=== PATIENT | female | born 1965 | race Caucasian/White ===

== ENCOUNTER → 2016-08-10 12:59 | Outpatient (CLI) | payer MEDICARE ==
[2015-05-22 11:00] VITALS: BMI 26.5
[~2016-08-10 12:59] MED LIST: ACCUPRIL5 MG PO; ADVIL200 MG PO; ALEVE220 MG PO; ANCEF/KEFZOL INJ1 GM IV; ASPIRIN81 MG PO; ATIVAN1 MG PO; BENADRYL INJ50 MG/ML IV; CECLOR250 MG PO; CELEXA10 MG PO; DILAUDID 012 MG/30 M IV; DILAUDID2 MG PO; DULCOLAX10 MG/SUPP RC; DURAGESIC1 PATCH .1 TD; ENTRESTO 24 MG1 EACH PO; FLEXERIL10 MG PO; FLORAJEN3 CAPS460 MG PO; GLUCOPHAGE1000 MG PO; GLUCOPHAGE850 MG PO; HUMALOG 30100 UNITS/ SC; HUMULIN R100 U/ML SQ; IPRAT-ALBUT 0.5-3 ML INH; IPRAT-ALBUT 0.5-3 ML UPD; K-DUR20 MEQ PO; LANTUS INSULIN10 ML SC; LANTUS SOL100 UNIT/1 SQ; LASIX INJ40 MG/4 ML PO; LASIX20 MG PO; LIPITOR20 MG PO; LOPRESSOR25 MG PO; MACROBID100 MG PO; MAG-OX 400 MG400 MG PO; MAG-OXIDE400 MG PO; MAGNESIUM S1 G/50 ML IV; METFORMIN HCL500 M1 PO; MIRALAX17 GM PO; MULTI-DAY VITAM1 TAB PO; NEURONTIN 300300 MG PO; NICODERM C1 PATCH .3 TRANSDERM; NORCO 10/325 TA1 TA1 PO; ONDANSETRON4 MG/2 M3 IV; OXYCONTIN20 MG PO; PEPCID20 MG PO; PERCOCET 10/3251 TA1 PO; PHOS-NAK PAC1 PACKET PT; PLAVIX75 MG PO; POTASSIUM; PROPRANOLOL HCL20 MG PO; SALINE FLUSH10 ML IV; SENOKOT-S TABLE1 TAB PO; SINGULAIR10 MG PO; SODIUM PHO40 MMOL/25 IV; TEFLARO600 MG IV; TRIPLE ANTIBIO3.5 GM TP; VENTOLIN HFA18 GM INH; ZESTRIL40 MG PO
[2016-08-10 13:33] LABS: BASOPHILS 0.6 % (0.0-2.0); EOSINOPHILS 4.4 % (0-7); HEMATOCRIT 32.6 % (36.0-48.0); HEMOGLOBIN 10.2 g/dL (12-16); IMMATURE GRANULOCYTES 0.1 % (0-5); LYMPHOCYTES 23.8 % (15-50); MCH 28.2 pg (26.0-34.0); MCHC 31.3 g/dL (31.0-37.0); MCV 90.1 fL (80.0-100.0); MEAN PLATELET VOLUME 10.1 fL (7.4-10.4); NEUTROPHILS 64.1 % (40-80); PLATELET COUNT 240 10x3/uL (130-400); RBC 3.62 10x6/uL (4.00-5.40); RDW 14.2 % (11.5-14.5); WBC 8.6 10x3/uL (4.8-10.8)
[2016-08-10 14:25] LABS: ALBUMIN 2.5 g/dL (3.4-5.0); ANION GAP 14.4 mmol/L (8-16); BILIRUBIN - TOTAL 0.19 mg/dL (0.2-1.3); CALCIUM 8.4 mg/dL (8.5-10.1); CARBON DIOXIDE 23.4 mmol/L (21.0-32.0); LDL-HDL RATIO 8.1 ratio (1.5-3.5); POTASSIUM - SERUM 3.8 mmol/L (3.5-5.1); PROTEIN - SERUM 6.5 g/dL (6.4-8.2); THYROID STIMULATING HORMONE 2.3 uIU/mL (0.36-3.74)
== END | disposition home or self-care (01) ==
LOC: D.LAB 12:59
PROVIDERS: Family Medicine
DX: I10 Essential (primary) hypertension (principal); E78.5 Hyperlipidemia, unspecified; E11.9 Type 2 diabetes mellitus without complications; J44.9 Chronic obstructive pulmonary disease, unspecified; I73.9 Peripheral vascular disease, unspecified

== ENCOUNTER 2016-09-08 03:15 | Inpatient (IN) | payer MEDICARE ==
[~2016-09-08] VITALS: Ht 157.5 cm; Wt 68.5 kg
[2016-09-08] VITALS (18 sets, daily range): BP systolic 103–163; BP diastolic 38–96; Ht 157.5 cm; Wt 68.5 kg
--- NOTE | ~2016-09-08 | CN ---
PATIENT NAME:HARINDER AVENDANO MEDICAL RECORD: [id number] : 63 LOCATION:[id number] ADMIT DATE: 09/08/16 ACCOUNT: [id number] CONSULTING PHYSICIAN: ALESSANDRO CRESPO MD REFERRING PHYSICIAN: PAL RAMIRES MD DATE OF CONSULTATION: 09/08/2016 CONSULT REQUESTING PHYSICIAN: Pal Ramires MD. REASON FOR CONSULTATION: Shortness of breath and pulmonary edema. HISTORY OF PRESENT ILLNESS: Ms. Avendano is a 51-year-old female who has a history of chronic smoking as well as diabetes mellitus with a complication. The patient came into the ER with worsening shortness of breath since yesterday. In evaluation, she found that she has pulmonary edema and on ABG, the pH was 7.1, bicarb was in teens. The patient also was having orthopnea. Denies any fever and chills. She has a cough without any significant sputum production. She was given some Lasix, now she is feeling a little bit better. REVIEW OF SYSTEMS: Mainly in the history of present illness. PAST MEDICAL HISTORY: 1. Diabetes mellitus with complications. 2. Peripheral vascular disease. 3. Hypertension. 4. Neuropathy. 5. COPD. 6. Gastroesophageal reflux disease. 7. Depression. PAST SURGICAL HISTORY: 1. She had bilateral above-knee amputations. 2. . 3. Appendectomy. 4. Myringotomy. 5. Femoropopliteal bypass in the past. ALLERGIES: There are no known drug allergies. MEDICATIONS: She is on Levaquin IV, albuterol and ipratropium nebulizer, and Lasix. All other medication is reviewed. PERSONAL AND SOCIAL HISTORY: The patient still continues to smoke half pack per day. She is a nondrinker. FAMILY HISTORY: Noncontributory. PHYSICAL EXAMINATION: GENERAL: Now, the patient is lying comfortably. She is not in acute distress. VITAL SIGNS: The blood pressure is 158/91, pulse is 114, respirations 16, temperature 97.9 and SPO2 is 97% on 4 liter nasal cannula. HEENT: Conjunctivae pink, sclerae nonicteric. NECK: Supple. There is elevated JVD. CHEST: There are bilateral crackles. No wheezing. CONSULT REPORT [id number] HARINDER AVENDANO HEART: Rhythm regular, normal sound, no murmur. ABDOMEN: Soft, bowel sounds present. No hepatosplenomegaly. RECTAL: Deferred. EXTREMITIES: No cyanosis. No clubbing. There is bilateral above-knee amputations. CENTRAL NERVOUS SYSTEM: The patient is awake and alert. There are no obvious cranial nerve abnormalities. LABORATORY DATA: CBC: WBC is 14.5, hemoglobin 11.5, hematocrit is 37.2 and the platelet count is 180. Chemistry. ABG: The pH is 7.16, pCO2 is 48.2, pO2 is 97 and bicarb is 17.4. The lactic acid is 2.25. Chemistry: Sodium 136, potassium is 4, chloride is 102, BUN is 24 and creatinine 1.3. Liver enzymes are within normal range. The proBNP is 3902. IMPRESSION: 1. Acute hypoxic respiratory failure which is multifactorial. A. Pulmonary edema. B. Chronic obstructive pulmonary disease exacerbation. C. Bilateral pleural effusions, possible underlying atelectasis. 2. Metabolic acidosis, most likely secondary to sepsis, possible with associated diabetic ketoacidosis. 3. Urinary tract infection. 4. Gastroesophageal reflux disease. 5. Diabetes mellitus, uncontrolled. 6. Congestive heart failure, possible diastolic dysfunction. RECOMMENDATION: 1. Continue Lasix. Continue Levaquin. I will add cefepime, albuterol and ipratropium nebulizer. Add Brovana and budesonide nebulizer. 2. Followup on the cardiac echo. 3. Cardiology consult. 4. Followup labs and chest radiograph. Repeat ABGs. Dr. Ramires, once again, thank you for involving me in the care of Ms. Avendano. The critical care time is 45 minutes. TRANSINT:[id number] Voice Confirmation ID: [id number] DOCUMENT ID: [id number] ALESSANDRO CRESPO MD CC: PAL RAMIRES MD [id number] DICTATION DATE: 09/08/16 1333 MEDICAL CHIEF TECHNICIAN: 09/08/161946 ADM IN [id number] [place] [address]
[~2016-09-08 03:15] MED LIST changes: -ADVIL200 MG PO; -ENTRESTO 24 MG1 EACH PO; -FLORAJEN3 CAPS460 MG PO; -GLUCOPHAGE1000 MG PO; -IPRAT-ALBUT 0.5-3 ML INH; -MAG-OX 400 MG400 MG PO; -METFORMIN HCL500 M1 PO; -NICODERM C1 PATCH .3 TRANSDERM; -SINGULAIR10 MG PO; -VENTOLIN HFA18 GM INH
[2016-09-08 03:39] LABS: BASOPHILS 0.6 % (0.0-2.0); EOSINOPHILS 5.4 % (0-7); HEMATOCRIT 37.2 % (36.0-48.0); HEMOGLOBIN 11.5 g/dL (12-16); IMMATURE GRANULOCYTES 0.4 % (0-5); LYMPHOCYTES 27.9 % (15-50); MCH 28.8 pg (26.0-34.0); MCHC 30.9 g/dL (31.0-37.0); MCV 93.2 fL (80.0-100.0); MEAN PLATELET VOLUME 11.2 fL (7.4-10.4); MONOCYTES 6.3 % (2-11); NEUTROPHILS 59.4 % (40-80); RBC 3.99 10x6/uL (4.00-5.40); RDW 14.6 % (11.5-14.5); WBC 14.5 10x3/uL (4.8-10.8)
[2016-09-08 03:45] LABS: PLATELET COUNT 180 10x3/uL (130-400)
[2016-09-08 04:22] LABS: APPEARANCE CLOUDY (CLEAR); BACTERIA MANY /hpf (NONE SEEN); BILIRUBIN NEGATIVE (NEGATIVE); COLOR YELLOW (YELLOW); EPITHELIAL CELLS OCC /hpf (0-5); GLUCOSE 500 mg/dL (NEGATIVE); KETONE NEGATIVE (NEGATIVE); LEUKOCYTE ESTERASE 2+ (NEGATIVE); NITRITE NEGATIVE (NEGATIVE); PROTEIN 3+ mg/dL (NEGATIVE); RED CELLS - URINE 0-5 /hpf (0-5); SPECIFIC GRAVITY 1.015 (1.005-1.020); UROBILINOGEN NORMAL (NORMAL); WHITE CELLS - URINE >50 /hpf (0-5)
[2016-09-08 04:52] LABS: ALBUMIN 2.6 g/dL (3.4-5.0); ALKALINE PHOSPHATASE 93 U/L (46-116); ALT (SGPT) 8 U/L (10-68); BILIRUBIN - TOTAL 0.18 mg/dL (0.2-1.3); CALC OSMOLALITY 289 mosm/kg (275-300); CALCIUM 8.3 mg/dL (8.5-10.1); CARBON DIOXIDE 21.3 mmol/L (21.0-32.0); CHLORIDE - SERUM 102 mmol/L (98-107); CREATININE - SERUM 1.3 mg/dL (0.6-1.3); PROTEIN - SERUM 7.3 g/dL (6.4-8.2); SODIUM 136 mmol/L (136-145); UREA NITROGEN 24 mg/dL (7-18); eGFR NON AFRICAN AMERICAN 46 mL/min (90-120)
[2016-09-08 04:53] LABS: GLUCOSE 353 mg/dL (74-106)
[2016-09-08 04:57] LABS: CREATINE KINASE 43 UL (21-215); MAGNESIUM - SERUM 1.8 mg/dL (1.8-2.4); PRO BNP 3902 pg/mL (0-125); TROPONIN-I 0.029 ng/mL (0.000-0.060)
[2016-09-08 06:22] LABS: KETONE - SERUM NEGATIVE (NEGATIVE)
[2016-09-08] MEDS ORDERED: VENTOLIN HFA18 GM INH (07:34)
[2016-09-08] MEDS ORDERED: ADVIL200 MG PO (07:35)
[2016-09-08] MEDS ORDERED: METFORMIN HCL500 M1 PO (07:36)
--- NOTE | 2016-09-08 08:21 | NUR ---
REC'D CARE OF PT. A&O X3.
--- NOTE | 2016-09-08 09:02 | NUR ---
NO VISITORS. DR. DELUNA PAGED FOR DIET ORDER AND ADVIL ORDER. DR. DELUNA CALLED ME AND ORDERS REC'D.
--- NOTE | 2016-09-08 09:39 | NUR ---
ECHO BEING PERFORMED.
--- NOTE | 2016-09-08 09:40 | NUR ---
DR. DELUNA AT BEDSIDE. DISCUSSED HNT WITH HIM.
--- NOTE | 2016-09-08 09:45 | NUR ---
BREAKFAST TRAY SERVED
--- NOTE | 2016-09-08 11:25 | NUR ---
REQUESTED BEDPAN. OBLIGED HAD SEMIFORMED BROWN STOOL. CANDY CARE PERFORMED.
--- NOTE | 2016-09-08 12:15 | NUR ---
FAMILY AT BEDSIDE. UPDATED.
--- NOTE | 2016-09-08 13:03 | NUR ---
DR. CRESPO AT BEDSIDE.
--- NOTE | 2016-09-08 15:00 | NUR ---
FAMILY AT BEDSIDE. UPDATED.
--- NOTE | 2016-09-08 16:06 | NUR ---
DENIES NEEDS. VSS.
--- NOTE | 2016-09-08 18:09 | NUR ---
FAMILY AT BEDSIDE. UPDATED.
--- NOTE | 2016-09-08 19:00 | NUR ---
REPORT REC'D, PATINET CARE ASSUMED. ASSESSMENT COMPLETED PER FLOW SHEETS. PT ALERT AND ORIENTED X4, DENIES SOB AT THIS TIME. ST ON CM WITH HR AT 105. LUNG SOUNDS DIMINISHED TO LLB, UNLABORED ON 4L VIA NC. O2SAT 95%. BS ACTIVE X4 QUADR, NONTENDER. BARTON INTACT TO GRAVITY WITH CL/Y DRAINAGE TO BAG. AKA BILAT NOTED. HOB UP. SIDE RAILS UP X2. CALL LIGHT IN REACH. WILL CONT TO MONITOR.
--- NOTE | 2016-09-08 21:00 | NUR ---
NO VISITORS AT THIS TIME. SCHEDULED MEDS GIVEN PER ORDER. PT CARRIE WELL. VSS.
--- NOTE | 2016-09-08 23:00 | NUR ---
REASSESSMENT COMPLETED PER FLOW SHEETS. NO ACUTE SIGNS OF DISTRESS NOTED. VSS. BATH COMPLETED. SKIN CARE PROVIDED. LINEN AND GOWN CHANGES. ASSISTED WITH BEDPAN. MEDIUM SOFT STOOL RESULTED. CANDY CARE PROVIDED, REPOSITIONED FOR COMFORT. PILLOWS FOR SUPPORT. HOB UP. SIDE RAILS UP. CALL LIGHT IN REACH. CPOC.
[2016-09-09] VITALS (13 sets, daily range): BP systolic 120–140; BP diastolic 70–87
--- NOTE | 2016-09-09 01:00 | NUR ---
PT RESTING QUIETLY WITHOUT DISTRESS AT THIS TIME. NO NEEDS VOICES. VSS. CALL LIGHT IN REACH. CPOC.
--- NOTE | 2016-09-09 03:00 | NUR ---
REASSESSMENT COMPLETED PER FLOW SHEETS. NO ACUTE SIGNS OF CHANGES NOTED ON PT'S STATUS. VSS. NO NEEDS VOICES AT THIS TIME. CPOC
--- NOTE | 2016-09-09 04:00 | NUR ---
I&O COMPLETED WITHOUT DIFFICULTY.
[2016-09-09 04:15] LABS: BASOPHILS 0.3 % (0.0-2.0); EOSINOPHILS 3.6 % (0-7); HEMATOCRIT 32.2 % (36.0-48.0); HEMOGLOBIN 10.2 g/dL (12-16); IMMATURE GRANULOCYTES 0.2 % (0-5); LYMPHOCYTES 32.8 % (15-50); MCH 28.9 pg (26.0-34.0); MCHC 31.7 g/dL (31.0-37.0); MEAN PLATELET VOLUME 10.6 fL (7.4-10.4); MONOCYTES 7.3 % (2-11); NEUTROPHILS 55.8 % (40-80); RBC 3.53 10x6/uL (4.00-5.40); RDW 14.7 % (11.5-14.5)
[2016-09-09 04:22] LABS: MCV 91.2 fL (80.0-100.0); PLATELET COUNT 247 10x3/uL (130-400); WBC 8.9 10x3/uL (4.8-10.8)
[2016-09-09 04:24] LABS: HEMOGLOBIN A1C 9.1 % (4.8-6.0)
[2016-09-09 04:52] LABS: ALBUMIN 2.1 g/dL (3.4-5.0); ANION GAP 15.1 mmol/L (8-16); BILIRUBIN - TOTAL 0.2 mg/dL (0.2-1.3); CALCIUM 8.5 mg/dL (8.5-10.1); CARBON DIOXIDE 23.8 mmol/L (21.0-32.0); CHOL - HDL RATIO 8.4 ratio (2.3-4.1); LDL-HDL RATIO 6.2 ratio (1.5-3.5); MAGNESIUM - SERUM 1.6 mg/dL (1.8-2.4); POTASSIUM - SERUM 3.9 mmol/L (3.5-5.1); PROTEIN - SERUM 6.4 g/dL (6.4-8.2); THYROID STIMULATING HORMONE 3.28 uIU/mL (0.36-3.74)
[2016-09-09 04:58] LABS: CREATININE - SERUM 1.8 mg/dL (0.6-1.3)
--- NOTE | 2016-09-09 05:30 | NUR ---
BS TO 56. HYPOGLYCEMIA PROTOCOL INITIATED. WILL CONT TO MONITOR.
--- NOTE | 2016-09-09 07:58 | NUR ---
0700 PT AWAKE ALERT AND ORIENTED X4. ABLE TO OBEY COMMANDS. COMPLAINS OF PAIN IN BACK. SINUS TACHYCARDIA NOTED ON MONITOR. LUNG SOUNDS CLEAR, DIMINISHED IN LOWER LOBES BILAT. ACTIVE BOWEL SOUNDS X4. AKA NOTED BILAT. PT ABLE TO MOVE EXTREMITIES INDEPENDENTLY. VITAL SIGNS STABLE.
--- NOTE | 2016-09-09 09:35 | NUR ---
0900 PT HAD BM ON BEDPAN, ABLE TO TURN SELF. VITAL SIGNS STABLE. WILL CONTINUE TO MONITOR
--- NOTE | 2016-09-09 13:24 | NUR ---
Patient Name: HARINDER OBANDO Admission Status: ER Accout number: [id number] Admission Date: 09-08-2016 : 1965 Admission Diagnosis:SHORTNESS OF BREATH Attending: PATRICIA Current LOS: 1 Anticipated DC Date: 09-13-2016 Planned Disposition: Home Primary Insurance: MEDICARE A & B Discharge Planning Comments: CM MET WITH PATIENT REGARDING D/C NEEDS AND PLANS. PATIENT STATED SHE LIVES WITH CHE BEEBE AND HE WILL DRIVE HER HOME AT DISCHARGE. THERE IS A RAMP AT HER HOME WITH NO STAIRS INSIDE. PATIENT STATED SHE IS PARTIAL DEPENDENT - CHE HELPS HER WITH HER SHOWER, MEDICATION. PATIENT HAS A WHEELCHAIR, SHOWER BENCH, AND GLUCOMETER (CHECKS 4X DAILY). PATIENTS PCP IS DR. DELUNA AND PHARMACY IS [facility]. PATIENT DOES NOT WANT HOME HEALTH AT THIS TIME. CM WILL CONTINUE TO FOLLOW PATIENT WITH D/C NEEDS AND PLANS. PCP DR. [facility] - [phone] CHE BEEBE [phone] Process Worker: Perla Ambrocio Is the patient Alert and Oriented? Yes 0 * How many steps to enter\exit or inside your home? RAMP 0 * PCP DR. DELUNA 0 * Pharmacy [facility] 0 * Preadmission Environment Home with Family 0 * ADLs Partial Dependent 0 * Partial ADLs (Assistance needed) Ambulation Bathing Dressing Medication Management Toileting Transfers 0 * Equipment Glucometer Shower Chair Wheelchair 0 * List name and contact numbers for known caregivers / representatives who currently or will assist patient after discharge: CHE BEEBE [phone] * Community resources currently utilized None 0 * Additional services required to return to the preadmission environment? Yes 0 * Can the patient safely return to the preadmission environment? Yes 0 * Has this patient been hospitalized within the prior 30 days at any hospital? No 0 Grand Total: 0
--- NOTE | 2016-09-09 13:40 | NUR ---
1100 SPOKE WITH PHYSICIAN ABOUT TRANSFER. WILL SEE PT AND DECIDE IF SHE IS STABLE ENOUGH TO GO TO THE FLOOR.
--- NOTE | 2016-09-09 13:41 | NUR ---
1300 TRANSFER ORDERS IN COMPUTER. PT WILL GO TO MED 2. VITAL SIGNS STABLE
--- NOTE | 2016-09-09 15:00 | NUR ---
RECEIVED PT VIA BED FROM ICU WITH 4 PERSON ASSIST TRANSFER TO OUR BED. PT AOX4 RESP EVEN AND NONLABORED. V/S WNL. BED AT LOWEST SETTING CALL LIGHT WITHIN REACH PT DENIES NEEDS AT THIS TIME WILL CONTINUE TO MONITOR
--- NOTE | 2016-09-09 15:15 | NUR ---
1505 PT TRANSFERRED TO MED 2 VIA BED WITH O2 TANK AT BEDSIDE ON 3L. PT TOLERATED WELL. REPORT CALLED TO INGRID YOUNG.
--- NOTE | 2016-09-09 18:31 | NUR ---
RECEIVED REPORT FROM DAY NURSE, PT DENIES ANY NEEDS, CALL LIGHT IN REACH, BED IS LOW, SRX3, WILL CONTINUE TO MONITOR
[2016-09-10] VITALS: BP 126/66
--- NOTE | 2016-09-10 02:45 | NUR ---
ASSESSMENT COMPLETE SEE FLOWSHEET, CALL LIGHT IN REACH, WILL MONITOR
[2016-09-10 04:00] VITALS: BP 130/75
--- NOTE | 2016-09-10 05:11 | NUR ---
AGREE WITH PAINT CREW SUPERVISOR'S ASSESSMENT. CONTINUE PLAN OF CARE.
[2016-09-10 06:11] LABS: BASOPHILS 0.2 % (0.0-2.0); HEMATOCRIT 31.3 % (36.0-48.0); HEMOGLOBIN 9.6 g/dL (12-16); IMMATURE GRANULOCYTES 0.1 % (0-5); MCH 28.2 pg (26.0-34.0); MCHC 30.7 g/dL (31.0-37.0); MCV 91.8 fL (80.0-100.0); MEAN PLATELET VOLUME 10.3 fL (7.4-10.4); MONOCYTES 8.5 % (2-11); NEUTROPHILS 64.2 % (40-80); PLATELET COUNT 205 10x3/uL (130-400); RBC 3.41 10x6/uL (4.00-5.40); RDW 14.6 % (11.5-14.5); WBC 8.3 10x3/uL (4.8-10.8)
[2016-09-10 06:43] LABS: ANION GAP 15.5 mmol/L (8-16); BILIRUBIN - TOTAL 0.2 mg/dL (0.2-1.3); CALCIUM 8.5 mg/dL (8.5-10.1); CARBON DIOXIDE 22.3 mmol/L (21.0-32.0); CREATININE - SERUM 1.9 mg/dL (0.6-1.3); MAGNESIUM - SERUM 1.9 mg/dL (1.8-2.4); PHOSPHOROUS 6.1 mg/dL (2.5-4.9); POTASSIUM - SERUM 3.8 mmol/L (3.5-5.1); PROTEIN - SERUM 6.3 g/dL (6.4-8.2)
--- NOTE | 2016-09-10 07:44 | NUR ---
AM ROUNDING- RECEIVED REPORT FROM MONUMENTAL STONEMASON NURSE ABDI HARMAN. PT IS CURRENTLY LAYING IN BED ON BACK WITH EYES OPEN WATCHING TV. DENIES ANY NEED AT CURRENT TIME. ON MONITOR SHOWING ST, HR 105. FSBS ACHS. ON 02 AT 3L VIA NC. IV SEEN TO RIGHT HAND WITH NS RUNNING AT KVO (5CC). BARTON CATHETER SEEN WITH LIGHT YELLOW URINE. PT HAS BILATERAL RIGHT AKA. NO NEED AT CURRENT TIME. WILL CONTINUE TO MONITOR AND CONTINUE WITH PLAN OF CARE.
[2016-09-10 08:26] VITALS: BP 122/56
[2016-09-10 12:30] VITALS: BP 117/67
[2016-09-10 16:00] VITALS: BP 142/71
--- NOTE | 2016-09-10 17:45 | NUR ---
PT LAYING IN BED ON BACK WITH EYES OPEN RESTING. IS AT BEDSIDE. PT DENIES ANY NEED AT CURRENT TIME. WILL CONTINUE TO MONITOR.
--- NOTE | 2016-09-10 20:07 | NUR ---
PT AWAKE, ALERT, ORIENTED, DENIES ANY ACUTE NEEDS. CONTINUE TO MONITOR CLOSELY.
[2016-09-10 20:19] VITALS: BP 110/53
[2016-09-11] VITALS: BP 125/65
--- NOTE | 2016-09-11 01:57 | NUR ---
PT IS C/O NAUSEA. SHE HAS HAD TWO BM'S, SOLID, LIGHT BROWN, NO UNUSUAL EFFECTS. WILL OFFER SALTINE CRACKERS AND DIET LEMON ATQASUK. CONTINUE TO MONITOR CLOSELY.
--- NOTE | 2016-09-11 03:03 | NUR ---
PT HAS VOMITED X 2. I DID OVERRIDE ZOFRAN AND ADMINISTERED IV. PTS IV INFILTRATED DURING ADMINISTRATION. WILL RESITE. IV CATH TIP REMOVED WITH CATH TIP INTACT. PT TO GET BED BATH, LINEN, AND GOWN CHANGE. PT STATES SHE HAS CHRONIC NAUSEA AND VOMITING, AND TAKES PEPCID FOR IT. PT STATES SHE HAS NOT HAD A GI WORKUP. WILL DISCUSS WITH DAYSHIFT. CONTINUE TO MONITOR CLOSELY.
[2016-09-11 04:00] VITALS: BP 112/59
[2016-09-11 05:48] LABS: BASOPHILS 0.1 % (0.0-2.0); EOSINOPHILS 4.8 % (0-7); HEMATOCRIT 29.2 % (36.0-48.0); IMMATURE GRANULOCYTES 0.1 % (0-5); LYMPHOCYTES 17.3 % (15-50); MCH 28.1 pg (26.0-34.0); MCHC 30.8 g/dL (31.0-37.0); MCV 91.3 fL (80.0-100.0); MEAN PLATELET VOLUME 10.1 fL (7.4-10.4); MONOCYTES 7.5 % (2-11); NEUTROPHILS 70.2 % (40-80); PLATELET COUNT 203 10x3/uL (130-400); RDW 14.5 % (11.5-14.5); WBC 7.7 10x3/uL (4.8-10.8)
[2016-09-11 06:05] LABS: ANION GAP 13.8 mmol/L (8-16); CALCIUM 8.7 mg/dL (8.5-10.1); CREATININE - SERUM 1.6 mg/dL (0.6-1.3); POTASSIUM - SERUM 3.8 mmol/L (3.5-5.1)
--- NOTE | 2016-09-11 06:14 | NUR ---
ORALIA D/C'D @ 0600 R/T IT LEAKING. PT IS NOT WANTING ANOTHER ONE AT THIS TIME. ALSO INSULIN HELD THIS AM R/T SS - SERUM GLUCOSE @ 68. WILL GIVE SNACK. CONTINUE TO MONITOR CLOSELY.
--- NOTE | 2016-09-11 07:50 | NUR ---
AM ROUNDING- RECEIVED REPORT FROM PEST CONTROL SERVICE TECHNICIAN NURSE HECTOR GARCIA. PT IS CURRENTLY LAYING IN BED ON BACK WITH EYES CLOSED RESTING RECEIVING A BREATHING TX. IS AT BEDSIDE. ON MONITOR SHOWING ST, HR 114. FSBS ACHS. PER REPORT FROM HECTOR GARCIA PT HAD BARTON REMOVED LAST NIGHT ON SHIFT DUE TO BARTON LEAKING AND PT REFUSED ANOTHER BARTON PLACEMENT. IV SEEN TO RIGHT FOREARM WITH NS RUNNING AT KVO (5CC). ON ROOM AIR. NO NEED AT CURRENT TIME. WILL CONTINUE TO MONITOR AND CONTINUE WITH PLAN OF CARE.
[2016-09-11 08:27] VITALS: BP 173/67
--- NOTE | 2016-09-11 10:23 | NUR ---
DR. DELUNA IN PTS ROOM. DR. DELUNA STATES IT IS OKAY FOR PT TO GO OUTSIDE JUST LET TELEMETRY KNOW SHE WENT OUTSIDE (PT IS REQUESTING TO GO OUTSIDE). WILL CONTINUE TO MONITOR.
[2016-09-11 13:36] VITALS: BP 137/77
--- NOTE | 2016-09-11 17:59 | NUR ---
PT IS CURRENTLY OUTSIDE (VIA WHEELCHAIR) ACCOMPANIED BY . NO NEED AT CURRENT TIME. WILL CONTINUE TO MONITOR.
[2016-09-11 18:52] VITALS: BP 143/73
[2016-09-11 19:00] VITALS: BP 153/67
--- NOTE | 2016-09-11 23:33 | NUR ---
NURSE ROUNDS 21:00 - PT AWAKE, ALERT, ORIENTED, DENIES ANY ACUTE NEEDS. PT IS WEARING HER "COPPER" BACK BRACE FROM HOME AND STATES SHE DOES NOT NEED ANY PAIN PILLS WHILE SHE WEARS THIS. CONTINUE TO MONITOR CLOSELY. PT STATES SHE HAS BEEN VOIDING WITHOUT ANY DIFFICULTY SINCE REMOVAL OF HER BARTON CATH THIS AM.
[2016-09-12] VITALS: BP 138/68
[2016-09-12 04:00] VITALS: BP 142/77
[2016-09-12 05:19] LABS: BASOPHILS 0.2 % (0.0-2.0); EOSINOPHILS 5.3 % (0-7); HEMATOCRIT 27.6 % (36.0-48.0); HEMOGLOBIN 8.6 g/dL (12-16); IMMATURE GRANULOCYTES 0.2 % (0-5); LYMPHOCYTES 15.4 % (15-50); MCH 28.6 pg (26.0-34.0); MCHC 31.2 g/dL (31.0-37.0); MCV 91.7 fL (80.0-100.0); MEAN PLATELET VOLUME 10.2 fL (7.4-10.4); MONOCYTES 7.9 % (2-11); PLATELET COUNT 201 10x3/uL (130-400); RBC 3.01 10x6/uL (4.00-5.40); RDW 14.7 % (11.5-14.5); WBC 8.1 10x3/uL (4.8-10.8)
--- NOTE | 2016-09-12 05:45 | NUR ---
PT AWAKE, ALERT, ORIENTED, DENIES ANY NEEDS. PT STATED CONCERN ABOUT UPCOMING POSSIBLE CARDIAC CATH. I EXPLAINED THE PURPOSE, RISKS, BENEFITS, AND POST PROCEDURE. PT DENIES ANYMORE QUESTIONS. CONTINUE TO MONITOR CLOSELY.
[2016-09-12 05:54] LABS: ANION GAP 17.2 mmol/L (8-16); CALCIUM 8.4 mg/dL (8.5-10.1); CARBON DIOXIDE 20.6 mmol/L (21.0-32.0); CREATININE - SERUM 1.8 mg/dL (0.6-1.3); POTASSIUM - SERUM 3.8 mmol/L (3.5-5.1)
--- NOTE | 2016-09-12 06:40 | NUR ---
RECEIVED PT REPORT. WILL CONTINUE PLAN OF CARE. NO OTHER NEEDS AT THIS TIME. WILL CONTINUE TO [facility].
[2016-09-12 07:41] VITALS: BP 156/69
--- NOTE | 2016-09-12 09:32 | NUR ---
PT IS ALERT. ASSESSMENT DONE PER FLOWSHEET. NO OTHER NEEDS
[2016-09-12] MEDS ORDERED: LOPRESSOR25 MG PO (10:00)
[2016-09-12] MEDS ORDERED: ENTRESTO 24 MG1 EACH PO (10:01)
[2016-09-12] MEDS ORDERED: LASIX20 MG PO (10:02)
--- NOTE | 2016-09-12 10:55 | NUR ---
Patient Name: HARINDER OBANDO Encounter No: [id number] : 1965 Primary Insurance: MEDICARE A & B Anticipated DC Date: 09-12-2016 Planned Disposition: Home DCP follow-up note: CM MET WITH PT IN ROOM TO DISCUSS DISCHARGE NEEDS AND PLANNING. CM DISCUSSED AVAILABILITY OF HOME HEALTH, REHAB SERVICES AND MEDICAL EQUIPMENT. PT DENIES DISCHARGE NEEDS REPORTS HER SPOUSE TAKES CARE OF HER ALL OF THE TIME. SPOUSE TO TRANSPORT HOME AT DISCHARGE. IMPORTANT MESSAGE FROM MEDICARE PROVIDED AND EXPLAINED. Daniele Vega, CASE MANAGEMENT
--- NOTE | 2016-09-12 11:04 | NUR ---
DC TEACHING COMPLETE. NO FURTHUR QUESTIONS. PRESCRIPTIONS GIVEN TO PT. IV AND TELEMETRY DC'D
--- NOTE | 2016-09-16 12:24 | EC ---
PATIENT:HARINDER OBANDO DATE OF SERVICE: 09/08/16 SEX: F MEDICAL RECORD: [id number] DATE OF : [birth year] LOCATION:D. D.213 AGE OF PATIENT: 51 ADMISSION DATE: 09/08/16 REFERRING PHYSICIAN: INTERPRETING PHYSICIAN: RYAN GAMINO M.D. ECHOCARDIOGRAM REPORT ECHO CHARGES 4 ECHO COMPLETE CLINICAL DIAGNOSIS: SOB/ELEVATED PROTIME/BNP ECHOCARDIOGRAPHIC MEASUREMENTS (adult normal given) AC root (d.<3.7cm) 3.0 LV Septum d (<1.2 cm> 1.4 Valve Excursion 1.4 LV Septum (systole) 4.6 Left Atria (s.<4.0cm> 3.9 LVPW d(<1.2cm) 1.1 RV (d.<2.3cm) 3.2 LVPW (sytole) 1.8 LV diastole(<5.6CM) 5.6 MV E-F(>70mm/sec) LV systole 4.0 LVOT Diameter 1.7 MV exc.(>10mm) 1.3 Est.ejection fraction (50-75%) Pericardial Effusion Y DOPPLER: LVIT A 132 E LA RVSP LVOT 79 AOP1/2T Asc. Ao 111 RVOT 60 RA PA 109 AV Gradient Peak 4.94 AV Mean 2.78 AV Area 1.6 MV Gradient Peak 9.35 MV Mean 3.42 MV Area COMMENTS: Distribution Associate: Mckenna DELEON Rail Signal Designer:1 Dr. Reyes TAPE# PACS DATE OF SERVICE: 09/08/2016 INDICATIONS: Shortness of breath, congestive heart failure. REFERRING PHYSICIAN: Pal Ramires MD. DESCRIPTION: Left ventricle is mildly dilated. There is global hypokinesis present. No wall motion abnormalities are noted. There is moderate LV dysfunction seen. Its ejection fraction is in the order of 30%. The mitral valve is structurally normal. There is mild regurgitation seen. Left atrium is ECHOCARDIOGRAM REPORT [id number] HARINDER OBANDO normal in size. The aortic valve is trileaflet. There is no stenosis or regurgitation seen. Right ventricle is mildly dilated. Tricuspid valve is structurally normal. There is no regurgitation noted. Right atrium is normal in size. There is small pericardial effusion noted, which is not circumferential. There is no evidence of tamponade or chamber collapse. It is likely physiologic. IMPRESSION: 1. Moderate left ventricular dysfunction with ejection fraction of 30%. 2. Moderate mitral regurgitation. TRANSINT:[id number] Voice Confirmation ID: [id number] DOCUMENT ID: [id number] RYNA GAMINO M.D. at 1224 CC: [id number] DICTATION DATE: 09/09/16723 MANAGER UNIVERSITY: 09/09/16 1150 DIS IN 09/12/16 [id number] [place] [address]
== END 2016-09-12 11:10 | disposition home or self-care (01) | DRG 871 ==
LOC: D.ER 03:15 → D.ICU 06:53 → D.M2 09-09 15:08
PROVIDERS: Emergency Medicine; ADMIT Family Medicine
PROC: 0T9B70Z Drainage of Bladder with Drainage Device, Via Natural or Artificial Opening (ICD-10-PCS; principal; 2016-09-08)
DX: A41.9 Sepsis, unspecified organism (principal); J96.01 Acute respiratory failure with hypoxia; E13.10 Other specified diabetes mellitus with ketoacidosis without coma; I50.23 Acute on chronic systolic (congestive) heart failure; N17.0 Acute kidney failure with tubular necrosis; N39.0 Urinary tract infection, site not specified; J44.1 Chronic obstructive pulmonary disease with (acute) exacerbation; I42.9 Cardiomyopathy, unspecified; F32.9 Major depressive disorder, single episode, unspecified; I11.0 Hypertensive heart disease with heart failure; K21.9 Gastro-esophageal reflux disease without esophagitis; E78.5 Hyperlipidemia, unspecified; I25.10 Atherosclerotic heart disease of native coronary artery without angina pectoris; D64.9 Anemia, unspecified; F41.9 Anxiety disorder, unspecified; Z86.73 Personal history of transient ischemic attack (TIA), and cerebral infarction without residual deficits; Z89.611 Acquired absence of right leg above knee; Z89.512 Acquired absence of left leg below knee; Z72.0 Tobacco use

== ENCOUNTER 2016-09-19 08:44 | Inpatient (IN) | payer MEDICARE ==
[~2016-09-19] VITALS: Ht 157.5 cm; Wt 73.9 kg
[~2016-09-19 08:44] MED LIST changes: +ADVIL200 MG PO; +ENTRESTO 24 MG1 EACH PO; +METFORMIN HCL500 M1 PO; +VENTOLIN HFA18 GM INH
[2016-09-19 09:44] LABS: HEMOGLOBIN 9.8 g/dL (12-16); MCH 28.5 pg (26.0-34.0); MCHC 31.6 g/dL (31.0-37.0); MCV 90.1 fL (80.0-100.0); MEAN PLATELET VOLUME 8.9 fL (7.4-10.4); NEUTROPHILS 69.3 % (40-80); PLATELET COUNT 237 10x3/uL (130-400); RBC 3.44 10x6/uL (4.00-5.40); RDW 14.1 % (11.5-14.5); WBC 7.7 10x3/uL (4.8-10.8)
[2016-09-19 09:49] LABS: APTT 34.6 SECONDS (22.8-39.4); INR 1.08 (0.85-1.17); PROTIME 13.8 SECONDS (11.6-15.0)
[2016-09-19 09:50] LABS: D-DIMER-QUANTITATIVE 2.53 ug/mLFEU (0.20-0.54)
[2016-09-19 09:58] LABS: ALBUMIN 2.4 g/dL (3.4-5.0); ALKALINE PHOSPHATASE 79 U/L (46-116); ALT (SGPT) 16 U/L (10-68); CALC OSMOLALITY 290 mosm/kg (275-300); CALCIUM 8.9 mg/dL (8.5-10.1); CARBON DIOXIDE 19.1 mmol/L (21.0-32.0); CHLORIDE - SERUM 109 mmol/L (98-107); CREATININE - SERUM 1.1 mg/dL (0.6-1.3); GLUCOSE 149 mg/dL (74-106); PROTEIN - SERUM 7.1 g/dL (6.4-8.2); SODIUM 141 mmol/L (136-145); UREA NITROGEN 32 mg/dL (7-18); eGFR NON AFRICAN AMERICAN 55 mL/min (90-120)
[2016-09-19 10:10] LABS: CREATINE KINASE 21 UL (21-215); PRO BNP 6199 pg/mL (0-125); TROPONIN-I < 0.017 ng/mL (0.000-0.060)
[2016-09-19 11:42] LABS: UDS - AMPHET NEGATIVE QUAL (NEGATIVE); UDS - BARB NEGATIVE QUAL (NEGATIVE); UDS - BENZO NEGATIVE QUAL (NEGATIVE); UDS - COCAINE NEGATIVE QUAL (NEGATIVE); UDS - METH NEGATIVE QUAL (NEGATIVE); UDS - OPIATE NEGATIVE QUAL (NEGATIVE); UDS - PCP NEGATIVE QUAL (NEGATIVE); UDS - THC NEGATIVE QUAL (NEGATIVE)
[2016-09-19 11:44] LABS: APPEARANCE HAZY (CLEAR); BILIRUBIN NEGATIVE (NEGATIVE); COLOR YELLOW (YELLOW); GLUCOSE NEGATIVE (NEGATIVE); KETONE NEGATIVE (NEGATIVE); LEUKOCYTE ESTERASE 2+ (NEGATIVE); NITRITE NEGATIVE (NEGATIVE); PROTEIN 3+ mg/dL (NEGATIVE); UROBILINOGEN NORMAL (NORMAL); WHITE CELLS - URINE 25-50 /hpf (0-5)
[2016-09-19 11:45] LABS: RED CELLS - URINE NONE SEEN /hpf (0-5)
[2016-09-19 11:46] LABS: BACTERIA FEW /hpf (NONE SEEN); EPITHELIAL CELLS 0-5 /hpf (0-5)
--- NOTE | 2016-09-19 14:52 | NUR ---
PT ARRIVED TO UNIT VIA WHEELCHAIR, ACCOMPANIED BY RADHA, PT ORIENTED TO ROOM AND CALL LIGHT. WILL DO ASSESSMENT AND START PLAN OF CARE, NAD NOTED, WILL CONTINUE TO MONITOR.
--- NOTE | 2016-09-19 16:09 | NUR ---
LALIT Soriaa @ [phone] repors that she is available 8am through 3pm. After 3pm patient's sister Annelise @ [phone] is who will need to be called for decisions. Carlota reoprts she is not able to recieve phone calls at work and she has to be at work at 3pm.
[2016-09-19] MEDS ORDERED: GLUCOPHAGE1000 MG PO (16:13)
[2016-09-19 16:27] VITALS: BP 165/73; BMI 28.6
[2016-09-19 17:16] VITALS: BP 165/73
--- NOTE | 2016-09-19 18:58 | NUR ---
Patient Name: HARINDER OBANDO Admission Status: ER Accout number: [id number] Admission Date: 09-19-2016 : 1965 Admission Diagnosis: UTI/Sepsis/CHF Attending: PATRICIA Current LOS: 1 Anticipated DC Date: 09-22-2016 Planned Disposition: Home Primary Insurance: MEDICARE A & B Discharge Planning Comments: Cm met with patient to complete initial discharge planning assessment. Patient gave consent to complete assessment. Patient reports she lives at home with her significant other. She is mostly independent in her care at home. She requires assistance with transfers. She is wheelchair bound. Patient plans to return home at discharge and denied known needs at this time. CM will continue to follow and assist with dc plan/needs. Vision Therapist: Kaia Spear RN, [facility] [phone] Is the patient Alert and Oriented? Yes 0 * How many steps to enter\exit or inside your home? ramp 0 * PCP Dr. Ramires 0 * Pharmacy [facility] on [address] 0 * Preadmission Environment Home with Family 0 * ADLs Partial Dependent 0 * Partial ADLs (Assistance needed) Bathing Transfers 0 * Equipment Bedside Commode Shower Chair Wheelchair 0 * List name and contact numbers for known caregivers / representatives who currently or will assist patient after discharge: Edmundo Sellers - [facility] - [phone] 0 * Community resources currently utilized None 0 * Additional services required to return to the preadmission environment? No 0 * Can the patient safely return to the preadmission environment? Yes 0 * Has this patient been hospitalized within the prior 30 days at any hospital? yes
[2016-09-19 20:00] VITALS: BP 156/85
--- NOTE | 2016-09-19 21:45 | NUR ---
ADMIN SCHED MEDS AND IBUPROFEN FOR C/O BACK PAIN. ADMIN LANTUS 40 UNITS PER ORDER. BS CHECKED AT 197. SHE STATED IT WAS OK TO GIVE THE 40 UNITS OF LANTUS FOR BS AT 197. IV IN R HAND INTACT SL. ORIENTED TO CALL LIGHT FOR ANY NEEDS.
--- NOTE | 2016-09-20 00:30 | NUR ---
GAVE SNACK OF VANILLA WAFERS AND MILK. INQUIRED ABOUT A NICOTINE PATCH, BUT ONE WAS NOT ORDERED. STATED "OK" AND WILL CHECK WITH MD TOMORROW.
[2016-09-20 00:36] VITALS: BP 134/69
--- NOTE | 2016-09-20 04:30 | NUR ---
REQUESTED BEDPAN TO VOID. NO OTHER NEEDS OR DISCOMFORTS VOICED.
[2016-09-20 04:59] VITALS: BP 156/75
[2016-09-20 05:35] LABS: BASOPHILS 0.3 % (0.0-2.0); EOSINOPHILS 4.5 % (0-7); HEMATOCRIT 29.9 % (36.0-48.0); HEMOGLOBIN 9.2 g/dL (12-16); IMMATURE GRANULOCYTES 0.3 % (0-5); MCH 28.1 pg (26.0-34.0); MCHC 30.8 g/dL (31.0-37.0); MCV 91.4 fL (80.0-100.0); NEUTROPHILS 56.9 % (40-80); PLATELET COUNT 222 10x3/uL (130-400); RBC 3.27 10x6/uL (4.00-5.40); RDW 14.8 % (11.5-14.5); WBC 7.1 10x3/uL (4.8-10.8)
[2016-09-20 06:03] LABS: ALBUMIN 2.3 g/dL (3.4-5.0); ANION GAP 13.4 mmol/L (8-16); BILIRUBIN - TOTAL 0.1 mg/dL (0.2-1.3); CREATININE - SERUM 1.1 mg/dL (0.6-1.3); MAGNESIUM - SERUM 1.8 mg/dL (1.8-2.4); PHOSPHOROUS 4.9 mg/dL (2.5-4.9); POTASSIUM - SERUM 5.4 mmol/L (3.5-5.1); PROTEIN - SERUM 6.9 g/dL (6.4-8.2)
--- NOTE | 2016-09-20 07:35 | NUR ---
PHARMACY CALLED RE: DR SHEEHAN'S ORDER FOR VASOTEC. PHARMACY STATE VASOTEC AND ENTRESTO CANNOT BE GIVEN TOGETHER. INFORMED DR DELUNA PRESENT ON FLOOR.
[2016-09-20 07:49] VITALS: BP 145/61
--- NOTE | 2016-09-20 08:45 | NUR ---
Verbalized name and , no distress assessed. No complaints. Telemetry in place. Call light within reach.
[2016-09-20 11:19] VITALS: BP 104/75
[2016-09-20 12:59] VITALS: Ht 157.5 cm; Wt 73.9 kg
--- NOTE | 2016-09-20 14:20 | NUR ---
Sitting up in bed, no compliants voiced. Call light within reach.
[2016-09-20 15:25] VITALS: BP 156/80
[2016-09-20 19:00] VITALS: BP 159/66
--- NOTE | 2016-09-20 19:46 | NUR ---
STRIPING MACHINE OPERATOR AT BED SIDE TO ASSIST WITH BED WARD.
--- NOTE | 2016-09-20 21:07 | NUR ---
HS MEDS GIVEN, DENIES NEEDS, BED LOW, CL IN REACH.
[2016-09-21 00:34] VITALS: BP 125/64
--- NOTE | 2016-09-21 02:17 | NUR ---
RESTING WITH EYES CLOSED, RESPERATIONS EVEN, NO S/S DISTRESS NOTED.
[2016-09-21 04:00] VITALS: BP 166/86
[2016-09-21 06:09] LABS: MAGNESIUM - SERUM 1.5 mg/dL (1.8-2.4); PHOSPHOROUS 3.8 mg/dL (2.5-4.9)
[2016-09-21 07:49] VITALS: BP 134/63
--- NOTE | 2016-09-21 10:20 | NUR ---
PATIENT RESTING WITH EYES CLOSED UPON MY ENTRY TO HER ROOM. SHE AWOKE EASILY AND DENIES NEEDS. MEDICATIONS GIVEN. LOVENOX EXPLAINED AND GIVEN IN THE LUQ. SHE IS ABLE TO SIT UP IN HER BED UNASSISTED. ENCOURAGED HER TO GET INTO THE SHOWER TODAY, EXPLAINED THE EQUIPMENT THAT COULD BE PROVIDED. SHE DECLINED, STATED THAT HER IS COMING THIS AFTERNOON AND SHE WILL GET INTO HER WC FOR A BIRD BATH.
--- NOTE | 2016-09-21 10:54 | NUR ---
PATIENT RESTING ON HER RIGHT SIDE IN HER BED. WATCHING TV. DENIES NEEDS.
[2016-09-21 11:29] VITALS: BP 127/56
[2016-09-21 15:15] VITALS: BP 149/70
[2016-09-21 19:00] VITALS: BP 142/63
--- NOTE | 2016-09-21 19:28 | NUR ---
IBUPROPHEN 200 MG GIVEN FOR C/O PAIN.
[2016-09-22] VITALS: BP 143/69
--- NOTE | 2016-09-22 03:32 | NUR ---
RESTING WITH EYES CLOSED, RESPERATIONS EVEN, NO S/S DISTRESS NOTED.
[2016-09-22 04:00] VITALS: BP 143/65
--- NOTE | 2016-09-22 05:28 | NUR ---
CALL LIGHT IN REACH. WILL CONTINUE WITH PLAN OF CARE.
[2016-09-22 05:35] LABS: BASOPHILS 0.4 % (0.0-2.0); EOSINOPHILS 6.1 % (0-7); HEMATOCRIT 29.6 % (36.0-48.0); HEMOGLOBIN 9.2 g/dL (12-16); IMMATURE GRANULOCYTES 0.1 % (0-5); LYMPHOCYTES 29.8 % (15-50); MCH 28.6 pg (26.0-34.0); MCHC 31.1 g/dL (31.0-37.0); MCV 91.9 fL (80.0-100.0); MEAN PLATELET VOLUME 9.9 fL (7.4-10.4); NEUTROPHILS 56.6 % (40-80); PLATELET COUNT 258 10x3/uL (130-400); RBC 3.22 10x6/uL (4.00-5.40); RDW 14.8 % (11.5-14.5); WBC 6.9 10x3/uL (4.8-10.8)
[2016-09-22 05:55] LABS: ANION GAP 14.1 mmol/L (8-16); CALCIUM 8.4 mg/dL (8.5-10.1); CARBON DIOXIDE 25.5 mmol/L (21.0-32.0); CREATININE - SERUM 1.1 mg/dL (0.6-1.3); MAGNESIUM - SERUM 1.3 mg/dL (1.8-2.4); POTASSIUM - SERUM 5.6 mmol/L (3.5-5.1)
--- NOTE | 2016-09-22 06:48 | NUR ---
RECEIVED REPORT FROM CAREER PROFESSIONAL NURSE, CONSTANTINO PATTON. PT IN BED, DENIES ANY NEEDS AT THIS TIME, PT ASSESSED AT THIS TIME. FIANCE AT BEDSIDE, CALL LIGHT IN REACH, NAD NOTED, WILL CONTINUE TO MONITOR.
[2016-09-22 08:15] VITALS: BP 158/69
--- NOTE | 2016-09-22 09:00 | NUR ---
PT TRANSFERED TO CT, VIA BED, NAD NOTED,
--- NOTE | 2016-09-22 09:42 | NUR ---
PT TRANSFERED BACK TO ROOM, VIA BED, NAD NOTED.
--- NOTE | 2016-09-22 10:11 | NUR ---
ADMINISTERED MORNING MEDICATIONS, PT IN BED, DENIES ANY NEEDS AT THIS TIME. CALL LIGHT IN REACH, FAMILY AT BEDSIDE, NAD NOTED WILL CONTINUE TO MONITOR.
--- NOTE | 2016-09-22 10:56 | NUR ---
Nutrition follow-up: Diet: Low sodium NPO at this time for procedure PO intake has been ~75% of meals labs reviewed Wt; 163# RDN following.
[2016-09-22 12:10] VITALS: BP 142/69
[2016-09-22 16:00] VITALS: BP 127/55
--- NOTE | 2016-09-22 17:35 | NUR ---
ADMINISTERED ADVIL 200MG FOR PAIN LEVEL OF 9/10, PT DENIES ANY OTHER NEEDS AT THIS TIME. CALL LIGHT IN REACH, NAD NOTED, WILL CONTINUE TO MONITOR.
[2016-09-22 20:13] VITALS: BP 144/70
--- NOTE | 2016-09-22 22:19 | NUR ---
HS MEDS GIVEN. BS 113, LANTUS HELD AT PT REQUEST. NO OTHER NEEDS VOICED AT THIS TIME.
--- NOTE | 2016-09-23 01:08 | NUR ---
CALL LIGHT IN REACH, WILL CONTINUE WITH PLAN OF CARE.
[2016-09-23 02:00] VITALS: BP 125/62
--- NOTE | 2016-09-23 02:38 | NUR ---
ASSIST PT WITH US OF BED WARD.
[2016-09-23 05:37] LABS: BASOPHILS 0.3 % (0.0-2.0); HEMOGLOBIN 9.1 g/dL (12-16); IMMATURE GRANULOCYTES 0.2 % (0-5); LYMPHOCYTES 35.2 % (15-50); MCH 28.7 pg (26.0-34.0); MCHC 31.4 g/dL (31.0-37.0); MCV 91.5 fL (80.0-100.0); MEAN PLATELET VOLUME 9.8 fL (7.4-10.4); MONOCYTES 7.9 % (2-11); NEUTROPHILS 50.4 % (40-80); PLATELET COUNT 269 10x3/uL (130-400); RBC 3.17 10x6/uL (4.00-5.40); RDW 14.8 % (11.5-14.5)
[2016-09-23 05:56] LABS: ANION GAP 14.3 mmol/L (8-16); CALCIUM 8.4 mg/dL (8.5-10.1); CARBON DIOXIDE 25.9 mmol/L (21.0-32.0); CREATININE - SERUM 1.1 mg/dL (0.6-1.3); MAGNESIUM - SERUM 1.4 mg/dL (1.8-2.4); POTASSIUM - SERUM 5.2 mmol/L (3.5-5.1)
[2016-09-23 05:57] LABS: PHOSPHOROUS 4.2 mg/dL (2.5-4.9)
--- NOTE | 2016-09-23 07:00 | NUR ---
PT WAS RECEIVED IN STABLE CONDITION AND AWAKE AT THE BEGINNING OF THIS SHIFT. ALERT AND ORIENTED X 3. VITAL SIGNS; TEMP. 97.8, PULSE 97, RESP 18, B/P 140/52, 02SAT. 99%. NO VOICED COMPLAINTS. RT. SERGIO SL. WILL BE MONITORING HER AND ASSISTING PRN WITH ADL'S.
[2016-09-23 08:14] VITALS: BP 140/52
[2016-09-23 13:14] VITALS: BP 152/78
[2016-09-23 16:52] VITALS: BP 140/64
--- NOTE | 2016-09-23 18:00 | NUR ---
PT HAS BEEN GIVEN PRN MAG OX PER ELECTROLYTE PROTOCOL TWICE THIS SHIFT. SHE REMAINS ALERT AND ORIENTED X 3. SHE GETS UP IN WHEELCHAIR AND GOES ABOUT WITH HER . PT IS ON A NO ADDED SALT- LOW SODIUM DIET. SHE REFUSED HER NICOTINE PATCH THIS AM. NO SIGNS OF DISCOMFORT OR DISTRESS.
[2016-09-23 19:00] VITALS: BP 131/59
--- NOTE | 2016-09-23 19:18 | NUR ---
PT RECEIVED LYING IN BED WATCHING TV AT THIS TIME. AAOX3. ASSESSMENT COMPLETED PER FLOWSHEET AT THIS TIME. S/L NOTED TO RIGHT HAND. DRESSING CDI. PT DENIES NEEDS AT THIS TIME. BED LOW. PHONE AND CALL LIGHT IN REACH. SRX2.
--- NOTE | 2016-09-23 21:39 | NUR ---
PM MEDS GIVEN AT THIS TIME. PT TOLERATED WELL. DENIES NEEDS. BED LOW. PHONE AND CALL LIGHT IN REACH. SRX2.
--- NOTE | 2016-09-23 23:38 | NUR ---
PT RESTING QUIETLY AT THIS TIME WITH EYES CLOSED. RESPIRATIONS EVEN, NON-LABORED. NO ACUTE DISTRESS NOTED AT THIS TIME. BED LOW. PHONE AND CALL LIGHT IN REACH. SRX2.
[2016-09-24] VITALS: BP 137/85
--- NOTE | 2016-09-24 01:55 | NUR ---
PT RESTING QUIETLY AT THIS TIME WITH EYES CLOSED. AROUSED EASILY. PT REQUESTS DIET COLA AT THIS TIME. DENIES OTHER NEEDS. BED LOW. PHONE AND CALL LIGHT IN REACH. SRX2.
--- NOTE | 2016-09-24 04:18 | NUR ---
PT REQUESTS MEDICATION FOR PAIN PT RATES 10 AT THIS TIME. ADMINISTERED IBUPROFEN PO PER ORDERS AT THIS TIME. PT DENIES OTHER NEEDS. BED LOW. PHONE AND CALL LIGHT IN REACH. SRX2.
[2016-09-24 04:26] VITALS: BP 131/68
--- NOTE | 2016-09-24 05:34 | NUR ---
PT RESTING QUIETLY WATCHING TV AT THIS TIME. ADMINISTERED LASIX IVP PER ORDERS. PT DENIES NEEDS. BED LOW. PHONE AND CALL LIGHT IN REACH. SRX2.
[2016-09-24] MEDS ORDERED: NICODERM C1 PATCH .3 TRANSDERM (06:51)
[2016-09-24] MEDS ORDERED: IPRAT-ALBUT 0.5-3 ML INH (06:54)
[2016-09-24] MEDS ORDERED: SINGULAIR10 MG PO (06:56)
[2016-09-24] MEDS ORDERED: FLORAJEN3 CAPS460 MG PO (06:57)
--- NOTE | 2016-09-24 07:00 | NUR ---
RECEIVED REPORT. ASSUMED CARE OF PATIENT. ALERT/ORIENTED. DENIES NEEDS AT THIS TIME. PATIENT QUESTIONING IF SHE WILL HAVE A PROCEDURE OR SHE WILL GO HOME TODAY. EXPLAINED TO PATIENT THAT IN REPORT THIS EXPEDITER CLERK WAS INFORMED PATIENT WILL BE GOING HOME TODAY. RESP EVEN AND UNLABORED. NO DISTRESS.
[2016-09-24] MEDS ORDERED: MAG-OX 400 MG400 MG PO (07:01)
[2016-09-24 07:59] VITALS: BP 129/66
[2016-09-24 12:40] VITALS: BP 105/53
--- NOTE | 2016-09-24 12:45 | NUR ---
1220 22 GAUGE IV TO RIGHT HAND D/C'D AT PATIENT IS BEING DISCHARGED. NO BLEEDING FROM SITE. 2X2 GAUZE APPLIED AND SECURED WITH TAPE. CATHETER TIP INTACT. 1225 DISCHARGE INSTRUCTIONS PROVIDED TO PATIENT AND HER MALE VISITOR AT BEDSIDE. STRESSED THE IMPORTANCE OF TAKING HER MEDICATION DIRECTED OR IT WOULD RESULT IN ANOTHER UNPLANNED HOSPITAL STAY DUE TO BEING NON COMPLIANT. PATIENT STATES THAT SHE HOPE SHE HAS THE MONEY TO PAY FOR THE MEDICATIONS WHEN SHE GETS TO THE PHARMACY. INSTRUCTED PATIENT THAT SHE WILL NEED TO LET HER PHYSICIAN KNOW IF SHE IS NOT TAKING THE MEDICATION DUE TO COST AND THE OFFICE SHOULD BE ABLE TO PROVIDE HER WITH ASSISTANCE IN RECEVING SOME OF HER MEDICATIONS. PATIENT VERBALIZED UNDERSTANDING OF ALL INSTRUCTIONS PROVIDED. 1240 PATIENT LEFT UNIT VIA HER OWN PERSONAL WHEELCHAIR WITH MALE VISITOR. PATIENT LEFT UNIT WITH ALL PERSONAL BELONGINGS. PATIENT IN NO DISTRESS UPON LEAVING UNIT.
== END 2016-09-24 12:40 | disposition home or self-care (01) | DRG 189 ==
LOC: D.ER 08:44 → D.M2 14:03
PROVIDERS: Emergency Medicine; Internal Medicine Pulmonary Disease; ADMIT Family Medicine
DX: J96.01 Acute respiratory failure with hypoxia (principal); I50.23 Acute on chronic systolic (congestive) heart failure; N39.0 Urinary tract infection, site not specified; J44.1 Chronic obstructive pulmonary disease with (acute) exacerbation; D64.9 Anemia, unspecified; E78.5 Hyperlipidemia, unspecified; E11.40 Type 2 diabetes mellitus with diabetic neuropathy, unspecified; I73.9 Peripheral vascular disease, unspecified; Z79.4 Long term (current) use of insulin; K21.9 Gastro-esophageal reflux disease without esophagitis; F41.9 Anxiety disorder, unspecified; F32.9 Major depressive disorder, single episode, unspecified; I34.0 Nonrheumatic mitral (valve) insufficiency; J30.9 Allergic rhinitis, unspecified; Z89.612 Acquired absence of left leg above knee; Z89.611 Acquired absence of right leg above knee; I11.0 Hypertensive heart disease with heart failure; E83.42 Hypomagnesemia; Z86.73 Personal history of transient ischemic attack (TIA), and cerebral infarction without residual deficits; F17.200 Nicotine dependence, unspecified, uncomplicated

== ENCOUNTER 2017-01-13 19:18 | Inpatient (IN) | payer MEDICARE ==
[~2017-01-13] VITALS: Ht 157.5 cm; Wt 65.3 kg
[~2017-01-13 19:18] MED LIST changes: +FLORAJEN3 CAPS460 MG PO; +GLUCOPHAGE1000 MG PO; +IPRAT-ALBUT 0.5-3 ML INH; +MAG-OX 400 MG400 MG PO; +NICODERM C1 PATCH .3 TRANSDERM; +SINGULAIR10 MG PO
[2017-01-13 20:00] LABS: BASOPHILS 0.3 % (0-2); EOSINOPHILS 4.3 % (0-7); HEMATOCRIT 31.6 % (36.0-48.0); HEMOGLOBIN 9.9 g/dL (12-16); IMMATURE GRANULOCYTES 0.1 % (0-5); LYMPHOCYTES 20.5 % (15-50); MCH 28.4 pg (26.0-34.0); MCHC 31.3 g/dL (31.0-37.0); MCV 90.8 fL (80.0-100.0); MEAN PLATELET VOLUME 10.3 fL (7.4-10.4); MONOCYTES 5.7 % (2-11); NEUTROPHILS 69.1 % (40-80); PLATELET COUNT 222 10x3/uL (130-400); RBC 3.48 10x6/uL (4.00-5.40); RDW 15.3 % (11.5-14.5); WBC 7.8 10x3/uL (4.8-10.8)
[2017-01-13 20:11] LABS: ALBUMIN 2.5 g/dL (3.4-5.0); BILIRUBIN - TOTAL 0.39 mg/dL (0.2-1.3); CARBON DIOXIDE 21.6 mmol/L (21.0-32.0); CREATININE - SERUM 1.3 mg/dL (0.6-1.3); POTASSIUM - SERUM 4.6 mmol/L (3.5-5.1); PROTEIN - SERUM 6.9 g/dL (6.4-8.2)
[2017-01-14] VITALS (7 sets, daily range): BP systolic 120–186; BP diastolic 51–97; Ht 157.5 cm; Wt 65.3 kg
[2017-01-14 05:52] LABS: BASOPHILS 0.2 % (0-2); EOSINOPHILS 0 % (0-7); HEMATOCRIT 33.3 % (36.0-48.0); HEMOGLOBIN 10.4 g/dL (12-16); IMMATURE GRANULOCYTES 0.2 % (0-5); LYMPHOCYTES 7.7 % (15-50); MCH 28.3 pg (26.0-34.0); MCHC 31.2 g/dL (31.0-37.0); MCV 90.7 fL (80.0-100.0); MONOCYTES 0.8 % (2-11); NEUTROPHILS 91.1 % (40-80); PLATELET COUNT 217 10x3/uL (130-400); RBC 3.67 10x6/uL (4.00-5.40); RDW 15.3 % (11.5-14.5); WBC 6.1 10x3/uL (4.8-10.8)
[2017-01-14 06:06] LABS: ANION GAP 17.4 mmol/L (8-16); CALCIUM 8.5 mg/dL (8.5-10.1); CARBON DIOXIDE 18.8 mmol/L (21.0-32.0); CREATININE - SERUM 1.5 mg/dL (0.6-1.3); POTASSIUM - SERUM 5.2 mmol/L (3.5-5.1)
--- NOTE | 2017-01-14 06:29 | NUR ---
ADMIN LASIX IV. REQUESTED SOPHIE CRACKERS AND COLA.
--- NOTE | 2017-01-14 07:00 | NUR ---
RECEIVED REPORT. ASSUMED CARE OF PATIENT. PATIENT LYING IN BED WITH EYES OPEN. COMPLAINS OF CHRONIC BACK PAIN. CALL LIGHT WITHIN REACH. NOTIFIED PATIENT THAT WE ARE WORKING ON GETTING HER PAIN MEDICATIONS ORDERED. NO DISTRESS. MOVING ABOUT IN BED.
--- NOTE | 2017-01-14 08:36 | NUR ---
ENTERED PATIENT ROOMS TO CHECK HER BLOOD SUGAR. PATIENT SITTING UP IN BED CONSUMING AM MEAL. WHEN QUESTIONED WHAT PATIENT TOOK AT HOME FOR PAIN SHE STATES [facility] AND THAT THEY AREN'T HELPING HER AND THEY GAVE HER DILAUDID IN THE ER AND THAT IS WHAT SHE WANTS. INFORMED HER THAT THERE IS NO ORDER FOR DILAUDID AND THAT THIS SOAP TENDER WILL PAGE THE MD. PATIENT STARTS SCREAMING AND CURSING AT THIS NURSE. INFORMED PATIENT THAT THIS SOAP TENDER WILL NOT BE SPOKEN TO LIKE THIS, I CAN ONLY GIVE WHAT THE PHYSICIAN HAS ORDERED AND LIKE I STATED I WOULD PAGE THE PHYSICIAN TO SEE WHAT HE IS WILLING TO GIVE YOU FOR PAIN. RECEIVED NEW ORDERS FROM AT THIS TIME FOR PAIN MANAGEMENT AND ALSO FOR SLIDING SCALE. REPORTED FSBS OF 417 AT THIS TIME TO MD. ALL ORDERS INPUTTED INTO SYSTEM AT THIS TIME.
--- NOTE | 2017-01-14 09:05 | NUR ---
HUMULIN R AND LANTUS SOLOSTAR ADMINISTERED AT THIS TIME FOR FSBS 417.
--- NOTE | 2017-01-14 09:51 | NUR ---
RECEIVED RESULT FROM LAB. NOTIFIED LAB THAT PATIENT HAS ALREADY RECEIVED 2 DIFFERENT INSULIN INJECTIONS AND ORAL MEDICATIONS AND PATIENT WILL BE CHECKED AT 1100. NILESH COELHO FROM LAB FOR RESULTS. IS AWARE OF ELEVATED GLUCOSE.
--- NOTE | 2017-01-14 11:48 | NUR ---
FSBS 314. 12 UNITS HUMULIN R ADMINISTERED PER SLIDING SCALE. PATIENT EDUCATED AND ENCOURAGED NOT TO DRINK THE REGULAR THAT SHE HAS BEEN CONSUMING WE ARE TRYING TO DECREASE HER GLUCOSE LEVEL. PATIENT CONTINUE TO DRINK REG SODA. PATIENTS PAIN BETTER CONTROLLED. PATIENT MOVING FREELY AROUND IN BED, LAUGHING AND TALKING WITH MALE VISITOR NOW AT BEDSIDE. NO DISTRESS.
--- NOTE | 2017-01-14 16:00 | NUR ---
FSBS 74. NO INSULIN ADMINISTERED PER SLIDING SCALE.
--- NOTE | 2017-01-14 19:55 | NUR ---
PT IN BED WITH EYES OPEN WATCHING TV WITH AT BEDSIDE. NO SIGN/SYMPTOMS OF DISTRESS NOTED. NO NEEDS OR CONCERNS MADE KNOWN AT THIS TIME. CALL LIGHT IN REACH.
--- NOTE | 2017-01-14 22:47 | NUR ---
PT IN BED WITH EYES CLOSED AND CHEST RISING. NO SIGN/SYMPTOMS OF DISTRESS NOTED. HS MEDICATIONS GIVEN PER MAR. CALL LIGHT IN REACH
[2017-01-15] VITALS: BP 153/79
--- NOTE | 2017-01-15 02:13 | NUR ---
PT IN BED WITH EYES OPEN PLAYING GAMES ON PHONE. NO CONCERNS MADE KNOWN. CALL LIGHT IN REACH. WILL CONTINUE TO OBSERVE.
[2017-01-15 04:00] VITALS: BP 146/78
--- NOTE | 2017-01-15 04:24 | NUR ---
PT IN BED WITH EYES CLOSED AND CHEST RISING. NO SIGN/SYMPTOMS OF DISTRESS NOTED. CALL LIGHT IN REACH.
--- NOTE | 2017-01-15 06:28 | NUR ---
PT IN BED WITH EYES OPEN AND CHEST RISING. FSBS 45 WITH 8OZ OF ORANGE JUICE GIVEN AND RECHECKED 45MINS LATER AND FSBS 46. GIVEN SOPHIE CRACKERS AND 4OZ OF ORANGE JUICE. WILL CONTINUE TO OBSERVE. CALL LIGHT IN REACH.
[2017-01-15 06:36] LABS: BASOPHILS 0.5 % (0-2); EOSINOPHILS 2.2 % (0-7); HEMATOCRIT 31.6 % (36.0-48.0); HEMOGLOBIN 9.8 g/dL (12-16); IMMATURE GRANULOCYTES 0.1 % (0-5); LYMPHOCYTES 33.2 % (15-50); MCH 28.3 pg (26.0-34.0); MCV 91.3 fL (80.0-100.0); MEAN PLATELET VOLUME 10.7 fL (7.4-10.4); RBC 3.46 10x6/uL (4.00-5.40); RDW 15.5 % (11.5-14.5)
[2017-01-15 06:45] LABS: PLATELET COUNT 269 10x3/uL (130-400); WBC 8.7 10x3/uL (4.8-10.8)
[2017-01-15 07:01] LABS: HEMOGLOBIN A1C 8.1 % (4.8-6.0)
[2017-01-15 07:13] LABS: ALBUMIN 2.5 g/dL (3.4-5.0); BILIRUBIN - TOTAL 0.24 mg/dL (0.2-1.3); CALCIUM 8.3 mg/dL (8.5-10.1); CHOL - HDL RATIO 3.9 ratio (2.3-4.1); CREATININE - SERUM 1.6 mg/dL (0.6-1.3); LDL-HDL RATIO 2.3 ratio (1.5-3.5); MAGNESIUM - SERUM 1.7 mg/dL (1.8-2.4); PHOSPHOROUS 4.8 mg/dL (2.5-4.9); PROTEIN - SERUM 6.8 g/dL (6.4-8.2); THYROID STIMULATING HORMONE 3.68 uIU/mL (0.36-3.74)
[2017-01-15 07:15] LABS: ANION GAP 12.3 mmol/L (8-16); CARBON DIOXIDE 24.1 mmol/L (21.0-32.0); POTASSIUM - SERUM 4.4 mmol/L (3.5-5.1)
--- NOTE | 2017-01-15 07:41 | NUR ---
PT IN BED WITH EYES CLOSED AND CHEST RISING. 25ML DEXTROSE ADMINISTERED WITH FSBS RECHECKED WITH A READING OF 121. NO OTHER CONCERNS NOTED. CALL LIGHT IN REACH.
--- NOTE | 2017-01-15 07:54 | NUR ---
AM ROUNDING- RECEIVED REPORT FROM ENDOSCOPY REGISTERED NURSE NURSE XIMENA. PT IS CURRENTLY LAYING IN BED ON BACK WITH EYES OPEN RESTING. ENDOSCOPY REGISTERED NURSE NURSE XIMENA HAS BEEN TRYING TO GET PTS BS RAISED, BS IS NOW STABLE. ON 02 AT 2L VIA NC. ON MONITOR SHOWING ST, HR 105. IV SEEN TO LEFT AC THAT IS CURRENTLY SALINE LOCKED. BILATERAL AKA SEEN. NO NEED AT CURRENT TIME. WILL CONTINUE TO MONITOR AND CONTINUE WITH PLAN OF CARE.
[2017-01-15 08:13] VITALS: BP 133/64
--- NOTE | 2017-01-15 09:52 | NUR ---
PAGED DR. DELUNA REGARDING ORDER HE PUT IN FOR MAGNESIUM IM. THIS NURSE WANTS TO CLARIFY THIS ORDER. WILL AWAIT CALLBACK.
--- NOTE | 2017-01-15 10:04 | NUR ---
RECEIVED CALLBACK FROM DR. DELUNA. DR. DELUNA STATES IT IS OKAY TO GIVE MAGNESIUM IM. WILL GIVE ORDERED PER DR. DELUNA.
[2017-01-15 12:01] VITALS: BP 169/85
--- NOTE | 2017-01-15 14:39 | NUR ---
LAB CALLED TO INFORM ME OF ELEVATED TROPONIN LEVEL WHICH IS 0.076. WILL CALL DR. DELUNA AND INFORM HIM OF THIS.
--- NOTE | 2017-01-15 15:11 | NUR ---
SPOKE WITH DR. DELUNA REGARDING PTS ELEVATED TROPONIN LEVEL. DR. DELUNA STATES TO INFORM DR. LOUISE. PAGED DR. LOUISE. WILL AWAIT CALLBACK AND CONTINUE TO MONITOR.
[2017-01-15 16:01] VITALS: BP 138/70
--- NOTE | 2017-01-15 17:12 | NUR ---
RECEIVED CALLBACK FROM DR. LOUISE. INFORMED HIM OF PTS TROPONIN LEVEL. DR. LOUISE STATES TO PLACE PT ON 1,200CC FLUID RESTRICTION AND ORDER A TROPONIN LEVEL FOR TOMORROW. WILL DO ORDERED.
--- NOTE | 2017-01-15 17:49 | NUR ---
1730- PT IS CURRENTLY SITTING UP IN BED WITH EYES OPEN RESTING WATCHING TV. PT DENIES ANY NEED AT CURRENT TIME. CALL LIGHT IS IN REACH. WILL CONTINUE TO MONITOR.
--- NOTE | 2017-01-15 18:35 | NUR ---
PT IS AWARE THAT SHE IS ON A 1,200CC FLUID RESTRICTION AND WE NEED TO KEEP UP WITH HOW MUCH SHE IS DRINKING.
--- NOTE | 2017-01-15 19:46 | NUR ---
PT LYING IN BED VISITING WITH FRIEND, STATED NO NEEDS AT THIS TIME, CALL LIGHT IN REACH BED IN LOW POSITION, CONTINUE PLAN OF CARE
[2017-01-15 20:00] VITALS: BP 140/74
[2017-01-16] VITALS: BP 135/71
--- NOTE | 2017-01-16 01:11 | NUR ---
CALL LIGHT IN REACH, WILL CONTINUE WITH PLAN OF CARE.
--- NOTE | 2017-01-16 03:19 | NUR ---
PT IS LYING IN BED , REQUESTED BED OAN, WENT TO WEIGH PATIENT AND NOTICED PT IS NOT ON A WEIGH BED AND IS BILATERAL AKA.DAILY WEIGHT IS ORDERED ON PT WILL NEED TO CHANGE PT BED DUE TO NO LEFT
[2017-01-16 04:00] VITALS: BP 114/67
--- NOTE | 2017-01-16 07:20 | NUR ---
SITTING UP IN BED WATCHING TV. NO S/SX OF DISTRESS NOTED. NO FAMILY AT BEDSIDE. OFFERS NO COMPLAINTS. CALL LIGHT IN REACH. WILL CONTINUE TO MONITOR
--- NOTE | 2017-01-16 09:14 | NUR ---
ADMINISTERD MORNING MEDS WITH DIFFICULTY. APPLIED NICOTINE PATCH TO RIGHT SHOULDER AND REMOVED OLD NICOTINE PATCH FROM LEFT SHOULDER. APPLIED LIDODERM PATCH TO LOWER BACK OLD PATCH WAS ALREADY REMOVED. NO CONCERNS VOICED. WILL CONTINUE TO MONTIOR
[2017-01-16 09:35] VITALS: BP 115/95
--- NOTE | 2017-01-16 11:30 | NUR ---
RESTING QUIETLY. MONITOR SHOWS SINUS TACH @ 101. WILL CONTINUE TO MONITOR.
[2017-01-16 12:12] VITALS: BP 145/69
[2017-01-16 16:37] VITALS: BP 128/48
--- NOTE | 2017-01-16 17:57 | NUR ---
SITTING UP IN BED AT BEDSIDE. OFFERS NO COMPLAINTS. CALL LIGHT IN REACH. WILL CONTINUE TO MONTIOR
[2017-01-16 19:00] VITALS: BP 128/66
--- NOTE | 2017-01-16 19:10 | NUR ---
REST IN BEB AND WATCH TV.
[2017-01-17] VITALS: BP 103/70
--- NOTE | 2017-01-17 01:04 | NUR ---
REST IN BED, EYE CLOSE, CALL LIGHT WITHIN REACH.
[2017-01-17 04:00] VITALS: BP 132/63
--- NOTE | 2017-01-17 07:00 | NUR ---
RECEIVED REPORT. ASSUMED CARE OF PATIENT. IN BED WITH EYES OPEN, ATTENTION TOWARD TELEVISION. DURING REPORT, NOC NURSE DID NOT REMOVE LIDOCAINE PATCH TO PATIENTS LOWER BACK, STATES SHE DID NOT KNOW SHE HAD TO REMOVE IT. WILL NOT BE ABLE TO APPLY NEW PATCH AT 0900. PATIENT STATES PAIN IS BETTER CONTROLLED WHILE RECEIVING SCHEDULED NORCO. DENIES NEEDS AT THIS TIME. NO DISTRESS.
[2017-01-17 08:10] VITALS: BP 131/72
[2017-01-17] MEDS ORDERED: LASIX40 MG PO (08:36)
[2017-01-17] MEDS ORDERED: PLAVIX75 MG PO (08:37)
[2017-01-17] MEDS ORDERED: COREG6.25 MG PO (08:37)
[2017-01-17] MEDS ORDERED: ACCUPRIL10 MG PO (08:37)
[2017-01-17] MEDS ORDERED: HYDROCODONE-APA1 TAB PO (08:37)
[2017-01-17] MEDS ORDERED: LANTUS INSULIN10 ML SC (08:39)
[2017-01-17] MEDS ORDERED: LINZESS145 MCG PO (08:39)
[2017-01-17] MEDS ORDERED: GLUCOPHAGE500 MG PO (08:40)
--- NOTE | 2017-01-17 10:18 | NUR ---
Patient Name: HARINDER OBANDO Admission Status: ER Accout number: [id number] Admission Date: 01-13-2017 : 1965 Admission Diagnosis: Attending: PATRICIA Current LOS: 4 Anticipated DC Date: 01-17-2017 Planned Disposition: Home Primary Insurance: MEDICARE A & B Discharge Planning Comments: * Is the patient Alert and Oriented? Yes 0 * How many steps to enter\exit or inside your home? RAMP 0 * PCP DR. DELUNA 0 * Pharmacy [facility] 0 * Preadmission Environment Home with Family 0 * ADLs Partial Dependent 0 * Partial ADLs (Assistance needed) Transfers 0 * Equipment Bedside Commode Shower Chair Wheelchair 0 * Other Equipment NO MEDICAL EQUIPMENT PROVIDER PREFERENCE 0 * List name and contact numbers for known caregivers / representatives who currently or will assist patient after discharge: CHE CONCEPCIÓN, SIGNIFICANT OTHER, 0 * Community resources currently utilized None 0 * Please name any agencies selected above. NONE 0 * Additional services required to return to the preadmission environment? No 0 * Can the patient safely return to the preadmission environment? Yes 0 * Has this patient been hospitalized within the prior 30 days at any hospital? No 0 CM MET WITH PT AND SPOUSE IN ROOM TO DISCUSS DISCHARGE PLANNING AND NEEDS. PT REPORTS LIVING AT HOME DEPENDENT ON HER SPOUSE FOR TRANSFER ASSISTANCE. PT HAS BEDSDIE COMMODE, SHOWER CHAIR AND WHEELCHAIR WITH NO MEDICAL EQUIPMENT PROVIDER PREFERENCE. PT HAS NO OUTSIDE SERVICES ASSISTING IN THE HOME. CM DISCUSSED AVAILABILITY OF HOME HEALTH, REHAB SERVICES AND MEDICAL EQUIPMENT. PT DENIES DISCHARGE NEEDS, REPORTS HER SPOUSE IS HERE TO PICK HER UP FOR DISCHARGE HOME TODAY. IMPORTANT MESSAGE FROM MEDICARE PROVIDED AND EXPLAINED. ANVILSMITH NOTIFIED. Interviewing Clerk: Daniele Vega
--- NOTE | 2017-01-17 11:53 | NUR ---
FSBS 271. 10 UNITS HUMULIN R ADMINISTERED PER SLIDING SCALE.
--- NOTE | 2017-01-17 13:03 | NUR ---
1235 20 GAUGE IV REMOVED FROM LEFT AC. CATHETER TIP INTACT. NO BLEEDING FROM SITE. 2X2 GAUZE APPLIED AND SECURED WITH TAPE. 1240 DISCHARGE INSTRUCTIONS PROVIDED TO PATIENT AND HER , WHOM IS HER PRIMARY CAREGIVER AT HOME. VERBALIZED UNDERSTANDING OF ALL INSTRUCTIONS PROVIDED. PRESCRIPTIONS GIVEN FOR MEDICATIONS. 1250 FAXED REQUEST TO [facility] FOR ASSISTANCE TO CONTINUE WITH NOT SMOKING. PATIENT HAS BEEN ON NICOTENE PATCH HERE WITH GOOD RESULTS. 1302 PATIENT LEFT UNIT VIA PRIVATE WHEELCHAIR WITH HER WITH ALL PERSONAL BELONGINGS. PATIENT DISCHARGED TO HOME. PATIENT LEFT UNIT IN NO DISTRESS.
--- NOTE | 2017-01-18 12:03 | EC ---
PATIENT:HARINDER OBANDO DATE OF SERVICE: 01/13/17 SEX: F MEDICAL RECORD: [id number] DATE OF : [birth year] LOCATION:D.M2 D.213 AGE OF PATIENT: 51 ADMISSION DATE: 01/13/17 REFERRING PHYSICIAN: INTERPRETING PHYSICIAN: MACHO LOUISE MD ECHOCARDIOGRAM REPORT ECHO CHARGES 4 ECHO COMPLETE CLINICAL DIAGNOSIS: TACHYCARDIA ECHOCARDIOGRAPHIC MEASUREMENTS (adult normal given) AC root (d.<3.7cm) 2.8 cm LV Septum d (<1.2 cm> 1.0 cm Valve Excursion 1.7 cm LV Septum (systole) 1.4 cm Left Atria (s.<4.0cm> 3.9 cm LVPW d(<1.2cm) 1.0 cm RV (d.<2.3cm) 2.2 cm LVPW (sytole) 1.6 cm LV diastole(<5.6CM) 6.5 cm MV E-F(>70mm/sec) cm LV systole 4.8 cm LVOT Diameter 1.7 cm MV exc.(>10mm) cm Est.ejection fraction (50-75%) % Pericardial Effusion Y DOPPLER: LVIT cm/sec A cm/sec E 158 cm/sec LA cm/sec RVSP 37.0 mmHg LVOT 103 cm/sec AOP1/2T m/s Asc. Ao 125 cm/sec RVOT 86.0 cm/sec RA cm/sec PA 97.0 cm/sec AV Gradient Peak 6.2 mmHg AV Mean 2.9 mmHg AV Area 1.8 cm MV Gradient Peak 8.8 mmHg MV Mean 8.6 mmHg MV Area cm COMMENTS: Hot Die Picker: Marcelle BUTTS DURHAM Driller Hand: 4 Dr. Louise TAPE# PACS DATE OF SERVICE: 01/16/2017 Echocardiographic report. FINDINGS: The echo was technically difficult and I would categorize this more as a qualitative study rather than quantitative in nature. Left ventricle: Left ventricle, although poorly visualized, appears to have global hypokinesis and it may also be dilated. ECHOCARDIOGRAM REPORT [id number] HARINDER OBANDO The mitral valve again not well visualized, but possibly with severe eccentric mitral regurgitation. At least by color, there appears to be proximal flow convergence and eccentric jet into the lateral posterior wall of the left atrium. The inflow characteristics into the left ventricle are on borderline restrictive type of pattern. The aortic valve is not well visualized by color Doppler evaluation, appears to be grossly normal in its structure and function with a hint in a couple of views of maybe trace aortic regurgitation. The tricuspid valve again was not well visualized overall, but by Doppler evaluation appears to be functioning normal and there is no good sampling of the tricuspid regurgitation to see if we have pulmonary hypertension. The pericardium appears to have a mild pericardial effusion. There is no demonstration of intraventricular dependence or tamponade physiology. The atrial septum and the ventricular septum appeared to be normal in their behavior throughout the course of the evaluation. In conclusion, the patient may have a dilated cardiomyopathy, etiology is not well known. She has an eccentric mitral regurgitation that is at least in the moderate to severe range, may be more in the severe range. RECOMMENDATIONS: At this point, further evaluation would be helpful in the diagnosis of this patient's cardiomyopathy and to get us a more detailed understanding behind the physiology that we are seeing on echocardiography. TRANSINT:[id number] Voice Confirmation ID: [id number] DOCUMENT ID: [id number] MACHO LOUISE MD at 1203 CC: [id number] DICTATION DATE: 01/16/17 0742 HOME COMPANION: 01/16/17 1221 DIS IN 01/17/17 [facility] [address] [place] [address]
== END 2017-01-17 13:02 | disposition home or self-care (01) | DRG 291 ==
LOC: D.ER 19:18 → D.M2 21:33
PROVIDERS: Emergency Medicine; ADMIT Family Medicine
DX: I11.0 Hypertensive heart disease with heart failure (principal); J96.01 Acute respiratory failure with hypoxia; J44.1 Chronic obstructive pulmonary disease with (acute) exacerbation; I50.21 Acute systolic (congestive) heart failure; M19.90 Unspecified osteoarthritis, unspecified site; I73.9 Peripheral vascular disease, unspecified; E78.5 Hyperlipidemia, unspecified; K21.9 Gastro-esophageal reflux disease without esophagitis; F41.9 Anxiety disorder, unspecified; F32.9 Major depressive disorder, single episode, unspecified; E11.40 Type 2 diabetes mellitus with diabetic neuropathy, unspecified; D64.9 Anemia, unspecified; I34.0 Nonrheumatic mitral (valve) insufficiency; Z89.612 Acquired absence of left leg above knee; Z89.611 Acquired absence of right leg above knee; Z86.73 Personal history of transient ischemic attack (TIA), and cerebral infarction without residual deficits; Z72.0 Tobacco use

== ENCOUNTER 2017-05-12 17:52 | Inpatient (IN) | payer MEDICARE ==
[~2017-05-12] VITALS: Ht 157.5 cm; Wt 62.0 kg
[~2017-05-12 17:52] MED LIST changes: +ACCUPRIL10 MG PO; +COREG6.25 MG PO; +GLUCOPHAGE500 MG PO; +HYDROCODONE-APA1 TAB PO; +LASIX40 MG PO; +LINZESS145 MCG PO
[2017-05-12 18:19] LABS: BASOPHILS 0.5 % (0-2); EOSINOPHILS 4.8 % (0-7); HEMATOCRIT 31.1 % (36.0-48.0); HEMOGLOBIN 9.9 g/dL (12-16); IMMATURE GRANULOCYTES 0.1 % (0-5); LYMPHOCYTES 24.7 % (15-50); MCH 29.7 pg (26.0-34.0); MCHC 31.8 g/dL (31.0-37.0); MCV 93.4 fL (80.0-100.0); MEAN PLATELET VOLUME 9.7 fL (7.4-10.4); NEUTROPHILS 62.9 % (40-80); PLATELET COUNT 230 10x3/uL (130-400); RBC 3.33 10x6/uL (4.00-5.40); WBC 8.5 10x3/uL (4.8-10.8)
[2017-05-12 18:54] LABS: ALBUMIN 2.8 g/dL (3.4-5.0); ANION GAP 20.2 mmol/L (8-16); CARBON DIOXIDE 18.8 mmol/L (21.0-32.0); CREATININE - SERUM 1.5 mg/dL (0.6-1.3); PROTEIN - SERUM 7.1 g/dL (6.4-8.2)
[2017-05-12 18:57] LABS: BILIRUBIN - TOTAL 0.07 mg/dL (0.2-1.3)
[2017-05-12 19:00] VITALS: BP 147/96
[2017-05-12 19:34] LABS: TROPONIN-I 0.366 ng/mL (0.000-0.060)
[2017-05-12] MEDS ORDERED: LIPITOR40 MG PO (19:58)
[2017-05-12] MEDS ORDERED: LASIX20 MG PO (19:58)
[2017-05-12] MEDS ORDERED: ZOLOFT50 MG PO (20:04)
[2017-05-12 20:14] VITALS: BP 147/96; BMI 22.9
--- NOTE | 2017-05-12 20:24 | NUR ---
PT RECEIVED VIA STRETCHER WITH SIGNIFICANT OTHER AT SIDE. PT IS AWAKE, ALERT, ORIENTED, C/O PAIN BEING A 10/10 ON NUMERIC PAIN SCALE IN HER BACK, NO OTHER NEEDS. WILL CONTINUE TO MONITOR CLOSELY. BED LOW, CALL LIGHT IN REACH, SIDE RAILS X 2, HOB 35 DEGREES.
--- NOTE | 2017-05-12 21:41 | NUR ---
PT PULLED IV TO LT AC. WILL RESITE.
--- NOTE | 2017-05-12 22:02 | NUR ---
IV RESITED TO RT [facility] BY IAN PATTON.
[2017-05-13] VITALS: BP 125/59
--- NOTE | 2017-05-13 04:44 | NUR ---
PT RESTING COMFORTABLY AT THIS TIME, ASKED FOR PRN MORPHINE AND A BED AWRD. I OPTED TO CLEAN PT WITH WARM SOAP AND WATER IN HER CANDY AREA R/T MODERATE REDNESS IN HER GROIN FOLDS AND VAGINAL AREA. PT IS VISIBLY DIRTY R/T POOR HYGEINE. NO OTHER NEEDS AT THIS TIME. CONTINUE TO MONITOR CLOSELY. PT PULLED UP AND REPOSITIONED IN BED, BILATERAL STUMPS RESTING ON A PILLOW. BED LOW, CALL LIGHT IN REACH, SIDE RAILS X 2, HOB 35 DEGREES.
[2017-05-13 04:54] VITALS: BP 115/58
--- NOTE | 2017-05-13 07:00 | NUR ---
REPORT RECEIVED ON PATIENT. MORNING ROUNDS MADE. PATIENT LAYING IN BED, EYES CLOSED, BUT AROUSED EASILY WHEN SPOKEN TO. DENIES ANY NEEDS AT THIS TIME. WILL CONTINUE TO MONITOR. CPOC.
[2017-05-13 07:57] VITALS: BP 114/62
--- NOTE | 2017-05-13 10:37 | NUR ---
MORNING MEDS GIVEN WITHOUT ISSUES. PATIENT SITTING UP IN BED, TALKING TO FAMILY AT BEDSIDE. SHE C/O PAIN, "10" ON A 0-10 SCALE; 2MG MORPHINE GIVEN. DENIES ANY NEEDS AT THIS TIME. WILL CONTINUE TO MONITOR PAIN. CPOC.
[2017-05-13 11:07] VITALS: Ht 157.5 cm; Wt 62.0 kg
[2017-05-13 11:44] VITALS: BP 116/58
--- NOTE | 2017-05-13 13:24 | NUR ---
PATIENT RESTING, DENIES ANY NEEDS. OC BED LOW AND LOCKED. CALL LIGHT IN REACH
--- NOTE | 2017-05-13 15:02 | NUR ---
PATIENT SITTING UP IN BED, WATCHING TV. NAD NOTED. DENIES ANY NEEDS AT THIS TIME. CPOC.
[2017-05-13 15:08] VITALS: BP 120/60
--- NOTE | 2017-05-13 18:34 | NUR ---
EVENING ROUNDS MADE. PATIENT LAYING IN BED, FAMILY AT BEDSIDE. DENIES ANY NEEDS AT THIS TIME. CPOC.
[2017-05-13 21:02] VITALS: BP 115/41
[2017-05-14 00:19] VITALS: BP 125/50
--- NOTE | 2017-05-14 04:13 | NUR ---
ASSISTED TO USE BEDPAN. PT C/O PAIN 02/12. MEDICATED WITH MORPHINE 2MG SIVP AND ALSO GAVE TIMED LASIX IV AT THIS TIME. NO OTHER NEEDS. CALL LIGHT IN REACH.
[2017-05-14 05:16] VITALS: BP 119/58
[2017-05-14 06:19] LABS: BASOPHILS 0.4 % (0-2); EOSINOPHILS 7.1 % (0-7); HEMATOCRIT 28.7 % (36.0-48.0); HEMOGLOBIN 8.9 g/dL (12-16); IMMATURE GRANULOCYTES 0.1 % (0-5); LYMPHOCYTES 22.3 % (15-50); MCH 29.3 pg (26.0-34.0); MCV 94.4 fL (80.0-100.0); MEAN PLATELET VOLUME 9.8 fL (7.4-10.4); MONOCYTES 8.2 % (2-11); NEUTROPHILS 61.9 % (40-80); PLATELET COUNT 228 10x3/uL (130-400); RBC 3.04 10x6/uL (4.00-5.40); RDW 13.9 % (11.5-14.5); WBC 6.7 10x3/uL (4.8-10.8)
[2017-05-14 06:21] LABS: HEMOGLOBIN A1C 7.5 % (4.8-6.0)
[2017-05-14 06:54] LABS: ALBUMIN 2.4 g/dL (3.4-5.0); ANION GAP 16.1 mmol/L (8-16); BILIRUBIN - TOTAL 0.18 mg/dL (0.2-1.3); CALCIUM 7.9 mg/dL (8.5-10.1); CARBON DIOXIDE 22.4 mmol/L (21.0-32.0); CHOL - HDL RATIO 6.1 ratio (2.3-4.1); CREATININE - SERUM 1.8 mg/dL (0.6-1.3); LDL-HDL RATIO 4.7 ratio (1.5-3.5); MAGNESIUM - SERUM 1.9 mg/dL (1.8-2.4); PHOSPHOROUS 8.2 mg/dL (2.5-4.9); POTASSIUM - SERUM 5.5 mmol/L (3.5-5.1); PROTEIN - SERUM 6.7 g/dL (6.4-8.2); THYROID STIMULATING HORMONE 8.75 uIU/mL (0.36-3.74)
--- NOTE | 2017-05-14 07:15 | NUR ---
RECIEVED REPORT ON PATIENT, PATIENTIS ALERT AND ORIENTED AT THIS TIME. PATIENT HAS A R FA IV THAT IS SL AT THIS TIME. PATIENT IS ON 2L/MIN VIA NC OF O2 WITH NAD NOTED AT THIS TIME. PATIENT DENIES ANY NEEDS OR COMPLAINTS AT THIS TIME. BED LOW AND LOCKED. CALL LIGHT IN REACH. CPOC
[2017-05-14 08:57] LABS: % SATURATION 16 % (15-55); IRON 39 ug/dl (35-150); TOTAL IRON BIND CAPACITY 240 ug/dl (260-445); UNSAT IRON BIND CAPACITY 201 ug/dl (150-375)
--- NOTE | 2017-05-14 09:00 | NUR ---
MORPHINE 2MG GIVEN FOR PAIN 10/10 IN BACK. WILL CONT TO MONITOR. CPOC
--- NOTE | 2017-05-14 11:15 | NUR ---
PATIENT RESTING, DENIES ANY NEEDS AT THIS TIME. CPOC
[2017-05-14 11:42] VITALS: BP 125/61
[2017-05-14 16:07] VITALS: BP 104/53
[2017-05-14 20:00] VITALS: BP 110/51
--- NOTE | 2017-05-14 21:41 | NUR ---
INITIAL ROUNDS COMPLETED AT 1915 HRS. FAMILY AT BEDSIDE. NO DISTRESS NOTED. ASSESSMENT COMPLETED AT 2000 HRS. VSS. IV TO RFA SL. OLD BILAT AKA NOTED. SCABS NOTED TO R STUMP. BRUISING NOTED TO BILAT ARMS. LUNGS DIMINISHED IN BASES. PM FSBS 132. PT REFUSED PM LANTUS. PM LASIX GIVEN. VOIDED 250CC OF URINE PER BEDPAN. PT CURRENTLY WATCHING TV. DENIES ANY DISCOMFORT. SR UP X2, CALL LIGHT WITHIN REACH.
--- NOTE | 2017-05-14 22:28 | NUR ---
MORPHINE 2MG SIVP GIVEN FOR C/O CHRONIC BACK PAIN. WILL CONTINUE TO MONITOR.
[2017-05-15] VITALS: BP 112/48
--- NOTE | 2017-05-15 00:01 | NUR ---
PT RESTING WITH EYES CLOSED. RESP EVEN AND REGULAR. SR UP X2, CALL LIGHT WITHIN REACH.
--- NOTE | 2017-05-15 02:48 | NUR ---
PT AWAKE; NO DISTRESS NOTED. WILL CONTINUE TO MONITOR.
[2017-05-15 04:00] VITALS: BP 119/50
--- NOTE | 2017-05-15 04:25 | NUR ---
PT AWAKE; STATES PAIN DOWN TO 4/10. WILL CONTINUE TO MONITOR.
[2017-05-15 06:11] LABS: BASOPHILS 0.3 % (0-2); EOSINOPHILS 6.7 % (0-7); HEMATOCRIT 26.9 % (36.0-48.0); HEMOGLOBIN 8.4 g/dL (12-16); IMMATURE GRANULOCYTES 0.1 % (0-5); LYMPHOCYTES 16.1 % (15-50); MCH 29.4 pg (26.0-34.0); MCHC 31.2 g/dL (31.0-37.0); MCV 94.1 fL (80.0-100.0); MONOCYTES 7.7 % (2-11); NEUTROPHILS 69.1 % (40-80); PLATELET COUNT 231 10x3/uL (130-400); RBC 2.86 10x6/uL (4.00-5.40); RDW 13.8 % (11.5-14.5); WBC 7.3 10x3/uL (4.8-10.8)
--- NOTE | 2017-05-15 06:23 | NUR ---
VSS THROUGHOUT NIGHT. PT STAES IV MORPHINE CONTROLS CHRONIC BACK PAIN. STOOL SAOPLE SENT TO LAB FOR OCCULT BLOOD. NEEDS MET; WILL CONTINUE TO MONITOR.
[2017-05-15 06:39] LABS: ALBUMIN 2.4 g/dL (3.4-5.0); BILIRUBIN - TOTAL 0.18 mg/dL (0.2-1.3); CALCIUM 7.8 mg/dL (8.5-10.1); CARBON DIOXIDE 20.4 mmol/L (21.0-32.0); MAGNESIUM - SERUM 1.9 mg/dL (1.8-2.4); PHOSPHOROUS 7.9 mg/dL (2.5-4.9); POTASSIUM - SERUM 5.4 mmol/L (3.5-5.1); PROTEIN - SERUM 6.6 g/dL (6.4-8.2)
--- NOTE | 2017-05-15 07:15 | NUR ---
RECIEVED REPORT ON PATIENT, PATIENT IS ALERT AND ORIENTED AT THIS TIME. PATIENT HAS A R FA IV THAT IS SL AT THIS TIME. PATIENT C/O OF BACK PAIN 03/14 WILL GIVE MORPHINE 2 MG. PATIENT DENIES ANY OTHER NEEDS AT THIS TIME. BED LOW AND LOCKED. CALL LIGHT IN REACH. CPOC
--- NOTE | 2017-05-15 08:17 | CN ---
PATIENT NAME:HARINDER OBANDO MEDICAL RECORD: [id number] : 63 LOCATION:D. D.2130 ADMIT DATE: 05/12/17 ACCOUNT: [id number] CONSULTING PHYSICIAN: LOUIS WOMACK MD REFERRING PHYSICIAN: ISABELL DELUNA MD DATE OF CONSULTATION: 05/13/2017 HISTORY OF PRESENT ILLNESS: This is a 51-year-old lady with known cardiomyopathy, systolic dysfunction, status post history of diabetes mellitus, cerebrovascular disease, status post bilateral AKAs, admitted with [id number] systolic function as well as renal insufficiency, EF approximately 30-35%. She has had issues with noncompliance in the past, although she states this has not been an issue as of late. She has diuresed nicely, feeling much better. We are asked to see her concerning her cardiovascular status. PAST MEDICAL HISTORY: Includes; 1 History of diabetes mellitus. 2. Chronic renal insufficiency. 3. Cardiomyopathy. 4. Cerebrovascular disease. 5. Obstructive pulmonary disease with long-term smoking history. 6. Dyslipidemia. MEDICATIONS: Include metformin 500 b.i.d., insulin per scale, Linzess 145 mcg daily, Lasix 20 daily, Zoloft 50 daily, aspirin 81 daily, Accupril 10 daily, Lipitor 40 daily, carvedilol 6.25 b.i.d., Plavix 75 daily, Ventolin 2 puffs q.4 p.r.n., and DuoNeb 3 mL q.i.d. ALLERGIES: None known. SOCIAL HISTORY: She continues to smoke. She is nondrinker. Has to have help with ADL secondary to obstructive disease. REVIEW OF SYSTEMS: The patient reports easy bruising but reports no swollen glands. The patient reports no fever, no night sweats, no significant weight gain, no significant weight loss. No significant exercise tolerance. The patient reports no dry eyes, no irritation, no vision change. Patient reports no difficulty hearing and no ear pain. Patient reports no frequent nose bleeds or nose and sinus problems. Patient reports on arm pain on exertion. No shortness of breath while lying down. No history of heart murmur. Patient reports no cough, no wheezing or coughing up blood. Patient reports no abdominal pain, no vomiting. Normal appetite. No diarrhea and not vomiting blood. No nausea and no constipation. Patient reports no incontinence. No difficulty urinating. No hematuria. No increased frequency. Patient reports no muscle aches. No weakness, no arthralgias, no back pain. No swelling of the extremities. Patient reports no abnormal mole, no jaundice, no rashes. Reports no loss of consciousness. No weakness and no numbness. No seizures, dizziness, or headaches. The patient reports no depression, no sleep disturbance, feeling safe in a relationship and no alcohol abuse. Patient reports on fatigue. Reports no runny nose or sinus pressure. No itching, no hives, and no frequent sneezing. PHYSICAL EXAMINATION: GENERAL: Pleasant female, in no acute distress. CONSULT REPORT [id number] GISELLAHARINDER Hester VITAL SIGNS: Blood pressure 114/62, pulse 91 and regular. HEENT: Normocephalic, atraumatic. NECK: No bruits noted. HEART: Regular. III/ systolic ejection murmur. LUNGS: Prolonged expiratory phase. No active wheezing. Actually, fairly good air movement. ABDOMEN: Soft, nontender. EXTREMITIES: Showed well healing stumps. IMPRESSION: Qekpx-pi-jzuswnv systolic dysfunction, improving nicely. Agree with current management. Her pressures were reasonable; however, with a potassium of 5.0, we will not add aldosterone inhibition at this point. TRANSINT:[id number] Voice Confirmation ID: [id number] DOCUMENT ID: [id number] LOUIS WOMACK MD at 0817 CC: [id number] DICTATION DATE: 05/13/17 0951 BOBBIN MARKER: 05/13/17 1133 ADM IN [place] [address] [place] [address]
[2017-05-15 08:18] VITALS: BP 116/49
[2017-05-15] MEDS ORDERED: SYNTHROID25 MCG PO (08:25)
[2017-05-15] MEDS ORDERED: LIPITOR20 MG PO (08:25)
[2017-05-15] MEDS ORDERED: LASIX40 MG PO (08:32)
--- NOTE | 2017-05-15 09:00 | NUR ---
MORNING MEDICATIONS GIVEN, NO ISSUES. WILL CONT TO MONITOR. CPOC
[2017-05-15] MEDS ORDERED: ZITHROMAX500 MG PO (09:19)
--- NOTE | 2017-05-15 09:55 | NUR ---
Patient Name: HARINDER OBANDO Admission Status: ER Accout number: [id number] Admission Date: 05-12-2017 : 1965 Admission Diagnosis: Attending: ISABELL DELUNA Current LOS: 3 Anticipated DC Date: 05-15-2017 Planned Disposition: Home Primary Insurance: MEDICARE A & B Discharge Planning Comments: * Is the patient Alert and Oriented? Yes 0 * How many steps to enter\exit or inside your home? RAMP 0 * PCP DR. DELUNA 0 * Pharmacy [facility] 0 * Preadmission Environment Home with Family 0 * ADLs Partial Dependent 0 * Partial ADLs (Assistance needed) Transfers 0 * Equipment Bedside Commode Nebulizer Shower Chair Wheelchair 0 * Other Equipment NO MEDICAL EQUIPMENT PROVIDER PREFERENCE 0 * List name and contact numbers for known caregivers / representatives who currently or will assist patient after discharge: CHE BEEBE, SIGNIFICANT OTHER, 0 * Community resources currently utilized None 0 * Please name any agencies selected above. NONE 0 * Additional services required to return to the preadmission environment? No 0 * Can the patient safely return to the preadmission environment? Yes 0 * Has this patient been hospitalized within the prior 30 days at any hospital? No 0 CM MET WITH PT IN ROOM TO DISCUSS DISCHARGE PLANNING AND NEEDS. PT REPORTS LIVING AT HOME DEPENDENT ON SIGNIFICANT OTHER FOR ASSISTANCE WITH TRANSFERS. PT HAS BEDSIDE COMMODE, NEBULIZER, SHOWER CHAIR AND WHEELCHAIR WITH NO MEDICAL EQUIPMENT PROVIDER PREFERENCE. PT HAS NO OUTSIDE SERVICES ASSISTING IN THE HOME. CM DISCUSSED AVAILABILITY OF HOME HEALTH, REHAB SERVICES AND MEDICAL EQUIPMENT. PT DENIES DISCHARGE NEEDS, REPORTS HER SIGNIFICANT OTHER WILL PICK HER UP FOR DISCHARGE HOME TODAY. IMPORTANT MESSAGE FROM MEDICARE PROVIDED AND EXPLAINED. Skein Drier: Daniele Vega
--- NOTE | 2017-05-15 10:30 | NUR ---
PATIENT IV DC WITH CATH TIP INTACT. DISCHARGE INSTRUCTIONS GIVEN, AND SIGNED. DENIES ANY QUESTIONS. PATIENT RIDE HERE FOR DC. PATIENT GONE FOR DC
[2017-05-16 08:19] LABS: FOLATE (FOLIC ACID) - SERUM 6.1 ng/mL (>3.0)
== END 2017-05-15 12:03 | disposition home or self-care (01) | DRG 291 ==
LOC: D.ER 17:52 → D.M2 19:18
PROVIDERS: Family Medicine; ADMIT Family Medicine
DX: I13.0 Hypertensive heart and chronic kidney disease with heart failure and stage 1 through stage 4 chronic kidney disease, or unspecified chronic kidney disease (principal); I50.23 Acute on chronic systolic (congestive) heart failure; J96.01 Acute respiratory failure with hypoxia; N17.9 Acute kidney failure, unspecified; N18.9 Chronic kidney disease, unspecified; E11.22 Type 2 diabetes mellitus with diabetic chronic kidney disease; Z87.891 Personal history of nicotine dependence; E11.40 Type 2 diabetes mellitus with diabetic neuropathy, unspecified; I42.9 Cardiomyopathy, unspecified; Z86.73 Personal history of transient ischemic attack (TIA), and cerebral infarction without residual deficits; J44.9 Chronic obstructive pulmonary disease, unspecified; E78.5 Hyperlipidemia, unspecified; E03.9 Hypothyroidism, unspecified; F41.9 Anxiety disorder, unspecified; K59.09 Other constipation; I34.0 Nonrheumatic mitral (valve) insufficiency; I73.9 Peripheral vascular disease, unspecified; K21.9 Gastro-esophageal reflux disease without esophagitis; M19.90 Unspecified osteoarthritis, unspecified site; D64.9 Anemia, unspecified; F32.9 Major depressive disorder, single episode, unspecified

== ENCOUNTER 2017-05-19 21:05 | Inpatient (IN) | payer MEDICARE ==
[~2017-05-19] VITALS: Ht 157.5 cm; Wt 68.8 kg
--- NOTE | ~2017-05-19 | HEMODYNAMI ---
PATIENT:HARINDER OBANDO MEDICAL RECORD: [id number] : 63 LOCATION:[facility] [address] [facility]# [id number] ADMISSION DATE: 05/20/17 Generatedon:05/22/201712:01 Patient name: HARINDER OBANDO Patient #: [id number] SSN: D OB: 1965 Date of study: 05/22/2017 Page: Of Hemodynamic Procedure Report Patient Data Patient Demographics Procedure consent was obtained First Name: HARINDER Gender: Female Last Name: GISELLA : 1965 Middle Initial: L Age: 51 year(s) Patient #: [id number] Race: Unknown Additional ID: [id number] Contact details Address: [address] [place] [address] State: [place] City: [facility] Zip code: [address] Past Medical History Allergies: No known allergies Admission Admission Data Admission Date: 05/20/2017 Admission Time: 1:13 Room #: D2117 Lab Results Lab Result Date: 05/22/2017 Lab Result Time: 0:00 Biochemistry Name Units Result Min Max BUN mg/dl 66 --(----)-* 7 18 Creatinine mg/dl 1.8 --(----)-* 0.6 1.3 CBC Name Units Result Min Max Hemoglobin g/dl 10.5 *-(----)-- 13.5 17.5 Procedure Procedure Types Cath Procedure Diagnostic Procedure [facility] w/Coronaries PCI Procedure Coronary Stent Coronary Stent Initial Miscellaneous Procedures Moderate Sedation up to 15 minutes Procedure Description Procedure Date Procedure Date: 05/22/2017 Procedure Start Time: 11:47 Procedure End Time: 11:59 Procedure Staff Name Function Artemio Reyes MD Performing Physician Karey Cole RT Monitor Katey Christensen RT Monitor Sergio Johnston RT Scrub Jose Snowden RN Nurse Procedure Data Cath Procedure Fluoroscopy Diagnostic fluoroscopy Total fluoroscopy Time: 2.5 time: 2.5 min min Diagnostic fluoroscopy Total fluoroscopy dose: 585 dose: 585 mGy mGy Contrast Material Contrast Material Type Amount (ml) Isovue 300 64 Entry Location Entry Primary Successful Side Size Upsize Upsize Entry Closure Torre ccessful Closure Location (Fr) 1 (Fr) 2 (Fr) Remarks Device Remarks Radial Right 6 Fr Mechanical TR BAND artery Short Compression Estimated blood loss: 10 ml Diagnostic catheters Device Type Used For End Catheter Placement DIAGNOSTIC [place] 110cm 5 Procedure Fr catheter ([id number]) Procedure Complications No complications Procedure Medications Medication Administration Route Dosage 0.9% NaCl I.V. 200 ml/hr Oxygen NC 3 l/min Heparin Flush Bag added to field 2 bags (1000units/500ml NS) Lidocaine 2% added to field 20 Radial Cocktail added to field 1 syringe (Verapomil 2mg/Nitro 400mcg/Heparin 1500units) Radial Cocktail I.A. 1 syringe (Verapomil 2mg/Nitro 400mcg/Heparin 1500units) Heparin Bolus I.V. 4000 units Integrilin (Bolus I.V. 5 ml 2mg/ml) Integrilin (Bolus wasted 5 ml 2mg/ml) Hemodynamics Rest Heart Rate: 95 (bpm) Snapshots Pre Cath Intra NCS Post Cath Vital Signs Time Heart Resp SPO2 etCO2 NIBP (mmHg) Rhythm Pain Sedation Rate (ipm) (%) (mmHg) Status Level (bpm) 11:32:41 95 14 92 0 145/86(115) NSR 0 (11) 10(A) , No pain 11:42:28 95 13 92 27.9 146/91(116) NSR 0 (11) 10(A) , No pain 11:47:15 96 12 91 21.1 152/81(112) NSR 0 (11) 10(A) , No pain 11:51:56 95 14 92 16.6 136/68(96) NSR 0 (11) 10(A) , No pain 11:56:36 95 12 89 15.1 129/65(103) NSR 0 (11) 10(A) , No pain Medications Time Medication Route Dose Verified Delivered Reason Note s Effectiveness by by 11:40:29 0.9% NaCl I.V. 200 Jose Jose Per physician ml/hr Sp Snowden RN RN 11:40:43 Oxygen NC 3 l/min Jose Jose Per physician Sp Snowden RN RN 11:40:58 Heparin Flush added 2 bags Jose Jose used for Bag to Sp Snowden procedure (1000units/500ml field RN RN NS) 11:41:13 Lidocaine 2% added 20ml Jose Jose for local to vial Sp Snowden anesthetic field RN RN 11:41:27 Radial Cocktail added 1 Jose Jose used for (Verapomil to syringe Sp Snowden procedure 2mg/Nitro field RN RN 400mcg/Heparin 1500units) 11:48:46 Radial Cocktail I.A. 1 Jose Artemio for (Verapomil syringe Elisigan Tauth MD vasodilation 2mg/Nitro RN 400mcg/Heparin 1500units) 11:53:09 Heparin Bolus I.V. 4000 Jose Jose for units Sp Snowden anticoagulation RN RN 11:53:31 Integrilin I.V. 5 ml Jose Jose for (Bolus 2mg/ml) Sp Snowden antiplatelet RN RN therapy 11:53:41 Integrilin wasted 5 ml Jose Jose to sharp's (Bolus 2mg/ml) Sp Snowden RN brand marketing intern Log Time Note 11:10:15 Informed consent obtained and on chart 11:10:44 Diagnostic Cath status Elective 11:12:19 Katey Counts RT(R) sent for patient. Start room use. 11:12:20 Time tracking: Regular hours 11:12:23 Plan of Care:Hemodynamics will remain stable., Cardiac rhythm will remain stable., Comfort level will be maintained., Respiratory function will remain adequate., Patient/ family verbilizes understanding of procedure., Procedure tolerated without complication., Recovers from procedure without complications.. 11:12:39 H&P Date Dictated: 05/21/2017 Within 30 days and on chart.. 11:19:07 Procedure type changed to Cath procedure, Diagnostic procedure, LHC, LHC w/Coronaries, PCI procedure, Coronary Stent, Coronary Stent Initial, Miscellaneous Procedures, Moderate Sedation up to 15 minutes 11:25:43 Patient received from Med/Surg to CCL 1 Alert and oriented. Tansferred to table in Supine position. 11:25:49 Warm blankets applied, and samantha hugger turned on for patient comfort. 11:25:49 Correct patient and procedure confirmed by team. 11:25:50 ECG and BP/O2 sat monitors applied to patient. 11:26:35 Pre-procedure instructions explained to patient. 11:26:36 Pre-op teaching completed and patient verbalized understanding. 11::41 Patient NPO since Midnight. 11::46 Patient arrived with skin tear in right groin crease. 11:31:48 Vital chart was started 11:31:52 Rhythm: sinus rhythm 11:31:53 Full Disclosure recording started 11:31:57 Family in patients room. 11:32:04 Patient allergic to No known allergies 11:32:06 Is the patient allergic to Iodine/contrast media? No. 11:33:50 Is the patient allergic to Iodine/contrast media? No. 11:33:55 Is patient on blood thinner?No 11:33:56 Patient diabetic? Yes. 11:33:57 If diabetic: On Metformin? No 11:34:02 Previous problem with sedation/anesthesia? No ? 11:34:03 Snore? No 11:34:05 Sleep apnea? No 11:34:06 Deviated septum? No 11:34:07 Opens mouth fully? Yes 11:34:08 Sticks out tongue? Yes 11:34:18 Airway obstruction? No ? 11:34:20 Dentures? No ? 11:34:40 IV patent on arrival in left hand with 0.9% NaCl at [facility]. 11:34:45 Modified Shawn's test Ulnar < 7 seconds 11:35:26 Lab Result : BUN 66 mg/dl 11:35:26 Lab Result : Hemoglobin 10.5 g/dl 11:35:26 Lab Result : Creatinine 1.8 mg/dl 11:35:29 Lab results completed and on chart. 11:35:30 Right Radial & Right Groin site verified by team. 11:35:39 Alarms reviewed by R. N. 11:35:40 Sharps counted by scrub and verified by R.N. 11:36:02 pt. has a skin tear at the right groin prior to procedure 11:36:11 --------ALL STOP TIME OUT------ 11:36:11 Final Timeout: patient, procedure, and site verified with staff and physician. All members of the team are in agreement. 11:36:13 Right Radial & Right Groin site verified by team. 11:36:16 Physical assessment completed. ASA score P 2 - A patient with mild systemic disease as per Artemio Reyes MD. 11:36:20 Sedation plan: IV Moderate Sedation Medication:Versed, Fentanyl 11:37:09 Vital chart was stopped 11:40:29 0.9% NaCl 200 ml/hr I.V. was administered by Jose Snowden RN; Per physician; 11:40:43 Oxygen 3 l/min NC was administered by Jose Snowden RN; Per physician; 11:40:58 Heparin Flush Bag (1000units/500ml NS) 2 bags added to field was administered by Jose Snowden RN; used for procedure; 11:41:13 Lidocaine 2% 20ml vial added to field was administered by Jose Snowden RN; for local anesthetic; 11:41:27 Radial Cocktail (Verapomil 2mg/Nitro 400mcg/Heparin 1500units) 1 syringe added to field was administered by Jose Snowden RN; used for procedure; 11:41:35 Vital chart was started 11:42:31 Baseline sample Acquired. 11:46:50 Use device set Radial Dx 11:46:51 ACIST Syringe (25396) opened to sterile field. 11:46:51 Medline Cath Pack ([id number]) opened to sterile field. 11:46:52 Bag Decanter (2002S) opened to sterile field. 11:46:52 SHEATH 6FR Slender ([id number]) opened to sterile field. 11:46:53 DIAGNOSTIC WIRE .035 260cm J wire (615384) opened to sterile field. 11:46:53 ACIST Hand Control (08061) opened to sterile field. 11:46:54 ACIST Manifold (48703) opened to sterile field. 11:46:54 Tegaderm 4 x 4 (1626W) opened to sterile field. 11:46:55 MBrace Wrist Support ([id number]) opened to sterile field. 11:47:13 Procedure started. 11:47:21 Local anesthetic to right radial artery with Lidocaine 2% by Artemio Reyes MD.INITIAL ACCESS ONLY 11:47:30 Zero performed for pressure channel P1 11:47:57 A 6 Fr Short sheath was inserted into the Right Radial artery 11:48:34 A DIAGNOSTIC [place] 110cm 5 Fr catheter (497307) was advanced over the wire and used for Procedure. 11:48:46 Radial Cocktail (Verapomil 2mg/Nitro 400mcg/Heparin 1500units) 1 syringe I.A. was administered by Artemio Reyes MD; for vasodilation; 11:48:53 Injector settings: Ml/sec: 7, Volume: 15, 11:48:55 LV hemodynamics recorded. 11:48:57 LV gram done using ESCALANTE 11:49:35 EF : 25 % 11:49:55 LCA angiography performed. 11:50:21 Merit INFLATION SYRINGE opened to sterile field. 11:50:52 RCA angiography performed. 11:51:12 Catheter removed. 11:52:24 Use device set [facility] PCI 11:52:29 CHOICE PT Extra Support 182cm wire ([id number]) opened to sterile field. 11:52:31 GUIDE 6FR XBLAD 3.5 catheter ([id number]) opened to sterile field. 11:52:46 6 Fr XBLAD 3.5 guide catheter was inserted over the wire 11:52:50 CHOICE ES wire advanced. 11:53:09 Heparin Bolus 4000 units I.V. was administered by Jose Snowden RN; for anticoagulation; 11:53:31 Integrilin (Bolus 2mg/ml) 5 ml I.V. was administered by Jose Snowden RN; for antiplatelet therapy; 11:53:41 Integrilin (Bolus 2mg/ml) 5 ml wasted was administered by Jose Snowden RN; to sharp's; 11:53:48 Wire advanced across lesion. 11:54:58 Inflation Number: 1 A MIKHAIL RX 2.5 x 22 stent ([id number]) was prepped and advanced across the Mid LAD. The stent was deployed at 13 A[address] for 0:10 (min:sec). 11:55:21 TR BAND Standard ([id number]) opened to sterile field. 11:55:27 Stent catheter was removed intact over wire. 11:55:28 Wire removed. 11:55:28 Guide catheter removed. 11:55:41 Sheath removed intact; hemostasis achieved with Mechanical Compression to the Right Radial artery. 11:55:46 Procedure ended.(Physican Out) 11:56:41 Fluoroscopy time 02.50 minutes. 11:56:46 Fluoroscopy dose: 585 mGy 11:56:46 Flurop Dose total: 585 11:56:50 Contrast amount:Isovue 300 64ml. 11:56:52 Sharps counted by scrub and verified by R.N. 11:56:53 TR band inflated with 12cc of air. 11:57:00 Post-procedure physical assessment completed. ASA score P 2 - A patient with mild systemic disease as per Artemio Reyes MD. 11:57:29 Post procedure rhythm: unchanged. 11:57:31 Estimated blood loss: 10 ml 11:57:33 Post procedure instruction explained to patient.Patient verbalizes understanding. 11:57:33 Patient needs reinforcement of post procedure teaching. 11:58:36 Procedure and supply charges have been captured, reviewed, submitted and are correct. 11:58:42 Procedure Complication : No complications 11:58:45 See physician's report for complete and final results. 11:58:49 Report given to PCU. 11:58:53 Patient transfered to PCU with Bed. 11:59:51 Procedure ended. 11:59:51 Full Disclosure recording stopped 11:59:53 End room use (Document Last) 12:01:03 Vital chart was stopped Intervention Summary Intervention Notes Time ActionType Lesion and Equipment Used Action# Pressure Duration Attributes 11:54:58 Place stent Mid LAD MIKHAIL RX 2.5 x 1 13 00:10 22 stent ([id number]) Device Usage Item Name Manufacture Quantity Catalog Number Hospital Part Current M inimal Lot# / Charge Number Stock Stock Serial# Code ACIST Syringe Acist 1 54439 247300 995594 184758 2 0 (17476) Medical Systems Inc Medline Cath Cardinal 1 [id number] 371348 56956 900829 5 Pack Health ([id number]) Bag Decanter Microtek 1 2001S 383023 79288 977719 5 () Medical Inc. SHEATH 6FR Terumo 1 [id number] 439561 026178 538575 4 0 Slender ([id number]) DIAGNOSTIC St Los 1 806057 800164 610169 966300 3 0 WIRE .035 260cm J wire (236825) ACIST Hand Acist 1 14914 123085 829948 922713 5 Control Medical (64398) Systems Inc ACIST Manifold Acist 1 25306 321997 851234 251491 5 (44193) Medical Systems Inc Tegaderm 4 x 4 3M 1 1626W 231923 618073 966125 5 (1626W) MBrace Wrist Advanced 1 140-0250-00 045788 70619 300777 5 Support Vascular ([id number]) Dynamics DIAGNOSTIC Terumo 1 40-2013 261512 355903 187898 5 [place] 110cm 5 Fr catheter (521550) Merit Medtronic 1 A08A 646626 72222 745443 5 INFLATION SYRINGE CHOICE PT [place] 1 [id number] 802608 643201 174067 5 Extra Support Scientific 182cm wire ([id number]) GUIDE 6FR Cardinal 1 [id number] 153580 863422 298169 1 0 XBLAD 3.5 Health catheter ([id number]) MIKHAIL RX 2.5 x Medtronic 1 [id number] 027727 1395492 011368 5 [id number] 22 stent ([id number]) TR BAND Terumo 1 [id number] 821000 006932 174026 4 0 Standard ([id number]) Signature Audit [place] Stage Time Signature Unsigned Intra-Procedure 05/22/2017 Karey Cole 12:01:01 PM RT(R) Signatures Monitor : Karey Cole Signature : RT Date : Time : Monitor : Katey Signature : Counts RT Date : Time : [place] [id number] [facility] [place] [address]
--- NOTE | ~2017-05-19 | HEMODYNAMI ---
PATIENT:HARINDER OBANDO MEDICAL RECORD: [id number] : 63 LOC[facility] [id number] ADMISSION DATE: 05/20/17 Generatedon:05/23/201713:04 Patient name: HARINDER OBANDO Patient #: [id number] SSN: D OB: 1965 Date of study: 05/23/2017 Page: Of Hemodynamic Procedure Report Patient Data Patient Demographics Procedure consent was obtained First Name: HARINDER Gender: Female Last Name: GISELLA : 1965 Middle Initial: L Age: 51 year(s) Patient #: [id number] Race: Unknown Additional ID: [id number] Contact details Address: [address] [place] [address] State: [place] City: [facility] Zip code: [address] Past Medical History Allergies: No known allergies Admission Admission Data Admission Date: 05/20/2017 Admission Time: 1:13 Room #: D.2117 Lab Results Lab Result Date: 05/23/2017 Lab Result Time: 0:00 Biochemistry Name Units Result Min Max Creatinine mg/dl 2 --(----)-* 0.6 1.3 CBC Name Units Result Min Max Hemoglobin g/dl 10.7 *-(----)-- 13.5 17.5 Procedure Procedure Types Cath Procedure PCI Procedure Coronary Stent Coronary Stent Initial Miscellaneous Procedures Moderate Sedation up to 15 minutes Procedure Description Procedure Date Procedure Date: 05/23/2017 Procedure Start Time: 12:43 Procedure End Time: 13:03 Procedure Staff Name Function Artemio Reyes MD Performing Physician Sergio Johnston RT Monitor Katey Christensen RT Scrub Jose Snowden RN Nurse Procedure Data Cath Procedure Fluoroscopy Diagnostic fluoroscopy Total fluoroscopy Time: 4.1 time: 4.1 min min Diagnostic fluoroscopy Total fluoroscopy dose: 760 dose: 760 mGy mGy Contrast Material Contrast Material Type Amount (ml) Isovue 300 66 Entry Location Entry Primary Successful Side Size Upsize Upsize Entry Closure Torre ccessful Closure Location (Fr) 1 (Fr) 2 (Fr) Remarks Device Remarks Radial Right 6 Fr Mechanical artery Short Compression Estimated blood loss: 10 ml Procedure Complications No complications Procedure Medications Medication Administration Route Dosage 0.9% NaCl I.V. ml/hr Oxygen NC 2 l/min Heparin Flush Bag added to field 2 bags (1000units/500ml NS) Lidocaine 2% added to field 20 Radial Cocktail added to field 1 syringe (Verapomil 2mg/Nitro 400mcg/Heparin 1500units) Versed I.V. 0.5 mg Fentanyl I.V. 25 mcg Radial Cocktail I.A. 1 syringe (Verapomil 2mg/Nitro 400mcg/Heparin 1500units) Heparin Bolus I.V. 4000 units Hemodynamics Rest HGB: 10.7 (g/dl) Heart Rate: 86 (bpm) Snapshots Pre Cath Intra NCS Post Cath Vital Signs Time Heart Resp SPO2 etCO2 NIBP (mmHg) Rhythm Pain Sedation Rate (ipm) (%) (mmHg) Status Level (bpm) 12:36:39 84 16 99 0 146/86(122) NSR 0 (11) 10(A) , No pain 12:41:22 82 19 99 0 133/86(123) NSR 0 (11) 10(A) , No pain 12:47:04 81 15 98 0 130/75(97) NSR 0 (11) 10(A) , No pain 12:51:51 79 14 99 0 116/62(86) NSR 0 (11) 10(A) , No pain 12:56:34 79 13 99 0 121/66(93) NSR 0 (11) 9(A) , No pain 13:01:16 80 14 0 129/67(91) NSR 0 (11) 9(A) , No pain Medications Time Medication Route Dose Verified Delivered Reason Note s Effectiveness by by 12:36:47 0.9% NaCl I.V. ml/hr Jose Jose Per physician Sp Snowden RN RN 12:36:59 Oxygen NC 2 l/min Jose Jose Per physician Sp Snowden RN RN 12:37:12 Heparin Flush added 2 bags Jose Jose used for Bag to Sp Snowden procedure (1000units/500ml field RN RN NS) 12:37:30 Lidocaine 2% added 20ml Jose Ojse for local to vial Lordionicio Lorigan anesthetic field YOUNG RN 12:37:43 Radial Cocktail added 1 Jose Jose used for (Verapomil to syringe Sp Snowden procedure 2mg/Nitro field YOUNG RN 400mcg/Heparin 1500units) 12:48:00 Versed I.V. 0.5 mg Jose Jose for sedation Sp Snowden RN RN 12:48:09 Fentanyl I.V. 25 mcg Jose Jose for sedation Sp Snowden RN, RN 12:48:21 Radial Cocktail I.A. 1 Jose Artemio for (Verapomil syringe Sp Reyes MD vasodilation 2mg/Nitro RN 400mcg/Heparin 1500units) 12:50:05 Heparin Bolus I.V. 4000 Jose Jose for units Sp Snowden anticoagulation RN utilization specialist Log Time Note 12:00:18 Katey Counts RT(R) sent for patient. Start room use. 12:01:12 Time tracking: Regular hours 12:01:17 Plan of Care:Hemodynamics will remain stable., Cardiac rhythm will remain stable., Comfort level will be maintained., Respiratory function will remain adequate., Patient/ family verbilizes understanding of procedure., Procedure tolerated without complication., Recovers from procedure without complications.. 12:26:16 Patient received from PCU to CCL 1 Alert and oriented. Tansferred to table in Supine position. 12:26:17 Warm blankets applied, and samantha hugger turned on for patient comfort. 12:26:18 Correct patient and procedure confirmed by team. 12:26:19 Signed procedure consent form obtained from patient. 12:26:20 ECG and BP/O2 sat monitors applied to patient. 12:36:29 Baseline sample Acquired. 12:36:40 Rhythm: sinus rhythm 12:36:47 0.9% NaCl ml/hr I.V. was administered by Jose Snowden RN; Per physician; 12:36:54 H&P Date Dictated: 05/21/2017 Within 30 days and on chart.. 12:36:55 Pre-procedure instructions explained to patient. 12:36:56 Pre-op teaching completed and patient verbalized understanding. 12:36:59 Oxygen 2 l/min NC was administered by Jose Snowden RN; Per physician; 12:37:00 Family unavailable. 12:37:01 Patient NPO since Midnight. 12:37:12 Heparin Flush Bag (1000units/500ml NS) 2 bags added to field was administered by Jose Snowden RN; used for procedure; 12:37:30 Lidocaine 2% 20ml vial added to field was administered by Jose Snowden RN; for local anesthetic; 12:37:43 Radial Cocktail (Verapomil 2mg/Nitro 400mcg/Heparin 1500units) 1 syringe added to field was administered by Jose Snowden RN; used for procedure; 12:40:00 Patient allergic to No known allergies 12:40:03 Is the patient allergic to Iodine/contrast media? No. 12:40:04 Is patient on blood thinner?Yes 12:40:07 ACC The patient was administered the following blood thiners within the last 24 hours: ACCPlavix 12:40:28 Patient diabetic? Yes. 12:40:30 If diabetic: On Metformin? No 12:40:33 Previous problem with sedation/anesthesia? No ? 12:40:34 Snore? No 12:40:35 Sleep apnea? No 12:40:45 Deviated septum? No 12:40:46 Opens mouth fully? Yes 12:40:47 Sticks out tongue? Yes 12:40:49 Airway obstruction? No ? 12:40:52 Dentures? No ? 12:40:55 Modified Shawn's test Ulnar < 7 seconds 12:40:57 Patient pain scale 0/10 ?. 12:41:03 IV patent on arrival in left hand with 0.9% NaCl at [facility]. 12:41:50 Lab Result : Creatinine 2 mg/dl 12:41:50 Lab Result : Hemoglobin 10.7 g/dl 12:41:57 Lab results completed and on chart. 12:42:01 Right Radial & Right Groin area was prepped with chlora-prep and draped in sterile fashion 12:42:01 Alarms reviewed by R. N. 12:42:02 Sharps counted by scrub and verified by R.N. 12:42:10 Use device set Radial Dx 12:42:11 Tegaderm 4 x 4 ([id number]) opened to sterile field. 12:42:12 ACIST Manifold (87783) opened to sterile field. 12:42:13 ACIST Hand Control (29881) opened to sterile field. 12:42:13 DIAGNOSTIC WIRE .035 260cm J wire (642047) opened to sterile field. 12:42:14 SHEATH 6FR Slender ([id number]) opened to sterile field. 12:42:15 Bag Decanter (2002S) opened to sterile field. 12:42:15 Medline Cath Pack ([id number]) opened to sterile field. 12:42:16 ACIST Syringe (07098) opened to sterile field. 12:42:16 MBrace Wrist Support ([id number]) opened to sterile field. 12:42:28 CHOICE PT Extra Support J 300cm guide wire ([id number]) opened to sterile field. 12:42:28 CHOICE PT Extra Support J 300cm guide wire ([id number]) opened to sterile field. 12:42:29 INFLATOR Merit BasixCompak (XR5156) opened to sterile field. 12:42:45 Full Disclosure recording started 12:42:48 Physician arrived 12:42:48 --------ALL STOP TIME OUT------ 12:42:49 Final Timeout: patient, procedure, and site verified with staff and physician. All members of the team are in agreement. 12:42:50 Right Radial & Right Groin site verified by team. 12:42:53 Physical assessment completed. ASA score P 2 - A patient with mild systemic disease as per Artemio Reyes MD. 12:42:57 Sedation plan: IV Moderate Sedation Medication:Versed, Fentanyl 12:43:09 Procedure started. 12:43:14 Local anesthetic to right radial artery with Lidocaine 2% by Artemio Reyes MD.INITIAL ACCESS ONLY 12:43:41 A 6 Fr Short sheath was inserted into the Right Radial artery 12:44:05 Zero performed for pressure channel P1 12:45:54 Zero performed for pressure channel P1 12:45:57 Zero performed for pressure channel P1 12:47:56 GUIDE 6FR XB 3.5 catheter ([id number]) opened to sterile field. 12:48:00 Versed 0.5 mg I.V. was administered by Jose Snowden RN; for sedation; 12:48:06 6 Fr xb 3.5 guide catheter was inserted over the wire 12:48:09 Fentanyl 25 mcg I.V. was administered by Jose Lorigan RN; for sedation; 12:48:21 Radial Cocktail (Verapomil 2mg/Nitro 400mcg/Heparin 1500units) 1 syringe I.A. was administered by Artemio Reyes MD; for vasodilation; 12:49:39 pt choice es wire advanced. 12:50:05 Heparin Bolus 4000 units I.V. was administered by Jose Snowden RN; for anticoagulation; 12:51:04 Wire advanced across lesion. 12:52:44 choice pt wire advanced down LAD 12:53:22 Inflation Number: 1 A MIKHAIL OTW 3.0 x 26 stent ([id number]) was prepped and advanced across the Prox CX. The stent was deployed at 13 AURORA for 0:10 (min:sec). 12:53:26 Stent catheter was removed intact over wire. 12:53:39 Wire removed from CX 12:55:14 Inflation number: 1 A EUPHORA 2.5 x 15 Balloon ([id number]) was prepped and advanced across the Prox LAD, then inflated to 13 AURORA for 0:10 (min:sec). 12:55:21 Balloon removed over the wire. 12:56:50 Inflation Number: 2 A MIKHAIL OTW 3.0 x 08 stent ([id number]) was prepped and advanced across the Prox LAD. The stent was deployed at 13 AURORA for 0:10 (min:sec). 12:57:04 Stent catheter was removed intact over wire. 12:57:05 Wire removed. 12:57:07 Guide catheter removed. 12:57:17 TR BAND Standard ([id number]) opened to sterile field. 12:57:26 Sheath removed intact; hemostasis achieved with Mechanical Compression to the Right Radial artery. 12:57:28 Procedure ended.(Physican Out) 12:59:19 TR band inflated with 12cc of air. 13:01:31 Fluoroscopy time 04.10 minutes. 13:01:35 Fluoroscopy dose: 760 mGy 13:01:35 Flurop Dose total: 760 13:01:39 Contrast amount:Isovue 300 66ml. 13:01:42 Sharps counted by scrub and verified by R.N. 13:01:46 Insertion/operative site no bleeding no hematoma. 13:01:57 Post right radial artery:stable, soft, clean and dry 13:02:00 Post Procedure Pulses reassessed and unchanged 13:02:04 Post procedure rhythm: unchanged. 13:02:05 Estimated blood loss: 10 ml 13:02:07 Post procedure instruction explained to patient.Patient verbalizes understanding. 13:02:10 Patient needs reinforcement of post procedure teaching. 13:02:33 Procedure type changed to Cath procedure, PCI procedure, Coronary Stent, Coronary Stent Initial, Miscellaneous Procedures, Moderate Sedation up to 15 minutes 13:03:17 Procedure and supply charges have been captured, reviewed, submitted and are correct. 13:03:20 Procedure Complication : No complications 13:03:23 Vital chart was stopped 13:03:26 See physician's report for complete and final results. 13:03:30 Report given to PCU. 13:03:34 Patient transfered to PCU with Stretcher. 13:03:36 Procedure ended. 13:03:36 Full Disclosure recording stopped 13:04:02 End room use (Document Last) Intervention Summary Intervention Notes Time ActionType Lesion and Equipment Action# Pressure Duration Attributes Used 12:53:22 Place stent Prox CX MIKHAIL OTW 3.0 1 13 00:10 x 26 stent ([id number]) 12:55:14 Inflate Prox LAD EUPHORA 2.5 x 1 13 00:10 balloon 15 Balloon ([id number]) 12:56:50 Place stent Prox LAD MIKHAIL OTW 3.0 2 13 00:10 x 08 stent ([id number]) Device Usage Item Name Manufacture Quantity Catalog Number [facility] Lot# / Charge Number Stock Stock Serial# Code Tegaderm 4 x 3M 1 1626W [id number] 446043 462880 5 4 (1626W) ACIST Acist 1 89046 555353 548167 815184 5 Manifold Medical (58700) Systems Inc ACIST Hand Acist 1 42509 063240 368132 506477 5 Control Medical (97559) Systems Inc DIAGNOSTIC St Los 1 078865 160462 056140 073385 30 WIRE .035 260cm J wire (932122) SHEATH 6FR Terumo 1 [id number] 572796 996730 293185 40 Slender ([id number]) Bag Decanter Microtek 1 2001S 300093 94950 249758 5 () Medical Inc. Medline Cath Cardinal 1 [id number] 947903 18885 436354 5 Pack Health ([id number]) ACIST Syringe Acist 1 80950 191116 027084 269399 20 (68239) Medical Systems Inc MBrace Wrist Advanced 1 140-0250-00 226865 64288 641447 5 Support Vascular ([id number]) Dynamics CHOICE PT [place] 2 [id number] 156971 024403 682505 5 Extra Support Scientific J 300cm guide wire ([id number]) INFLATOR Merit 1 OT5461 494560 529373 084727 15 Merit Medical BasixCompak (TG9658) GUIDE 6FR XB Cardinal 1 [id number] 662599 108989 428837 2 3.5 catheter Health (00261905) MIKHAIL OTW 3.0 Medtronic 1 [id number] 430352 9447752 426623 5 [id number] x 26 stent ([id number]) EUPHORA 2.5 x Medtronic 1 [id number] 169636 049113 144836 5 [id number] 15 Balloon ([id number]) MIKHAIL OTW 3.0 Medtronic 1 [id number] 417710 0200278 091330 5 [id number] x 08 stent ([id number]) TR BAND Terumo 1 [id number] 384129 858988 667343 40 Standard ([id number]) Signature Audit [place] Stage Time Signature Unsigned Intra-Procedure 05/23/2017 Sergio Johnston 1:04:29 PM RT(R) Signatures Monitor : Sergio Johnston RT Signature : Date : Time : [facility] [address] [place] [address]
[~2017-05-19 21:05] MED LIST changes: +LIPITOR40 MG PO; +SYNTHROID25 MCG PO; +ZITHROMAX500 MG PO; +ZOLOFT50 MG PO
[2017-05-19 21:22] LABS: BASOPHILS 0.4 % (0-2); EOSINOPHILS 6.5 % (0-7); HEMATOCRIT 31.3 % (36.0-48.0); IMMATURE GRANULOCYTES 0.3 % (0-5); LYMPHOCYTES 25.5 % (15-50); MCH 29.9 pg (26.0-34.0); MCHC 31.9 g/dL (31.0-37.0); MCV 93.7 fL (80.0-100.0); MONOCYTES 9.5 % (2-11); NEUTROPHILS 57.8 % (40-80); RBC 3.34 10x6/uL (4.00-5.40); RDW 14.4 % (11.5-14.5); WBC 9.3 10x3/uL (4.8-10.8)
[2017-05-19 21:37] LABS: ALBUMIN 2.7 g/dL (3.4-5.0); ALKALINE PHOSPHATASE 119 U/L (46-116); ALT (SGPT) 18 U/L (10-68); CALCIUM 8.8 mg/dL (8.5-10.1); CARBON DIOXIDE 20.2 mmol/L (21.0-32.0); CHLORIDE - SERUM 111 mmol/L (98-107); CREATININE - SERUM 1.7 mg/dL (0.6-1.3); POTASSIUM - SERUM 5.7 mmol/L (3.5-5.1); PROTEIN - SERUM 7.9 g/dL (6.4-8.2); SODIUM 141 mmol/L (136-145); UREA NITROGEN 63 mg/dL (7-18); eGFR NON AFRICAN AMERICAN 33 mL/min (90-120)
[2017-05-19 21:39] LABS: BILIRUBIN - TOTAL 0.09 mg/dL (0.2-1.3); CALC OSMOLALITY 304 mosm/kg (275-300); GLUCOSE 202 mg/dL (74-106)
[2017-05-19 21:44] LABS: PLATELET COUNT 362 10x3/uL (130-400)
[2017-05-19 21:49] LABS: CHOL - HDL RATIO 5.8 ratio (2.3-4.1); CHOLESTEROL, TOTAL 180 mg/dL (0-200); CKMB 1.9 U/L (0.0-3.6); CREATINE KINASE 57 UL (21-215); HDL CHOLESTEROL 31 mg/dL (32-96); LDL CHOLESTEROL 122 mg/dL (0-100); LDL-HDL RATIO 3.9 ratio (1.5-3.5); PRO BNP 10636 pg/mL (0-125); TRIGLYCERIDE 136 mg/dL (30-200); TROPONIN-I 0.042 ng/mL (0.000-0.060)
[2017-05-20 02:18] VITALS: BP 142/62; BMI 24.7
[2017-05-20] MEDS ORDERED: LIPITOR40 MG PO (02:56)
[2017-05-20] MEDS ORDERED: ZITHROMAX500 MG PO (02:57)
[2017-05-20] MEDS ORDERED: FUROSEMIDE20 MG PO (03:00)
[2017-05-20 04:00] VITALS: BP 142/62
[2017-05-20 07:47] VITALS: BP 128/45
--- NOTE | 2017-05-20 08:00 | NUR ---
PT ASSESSMENT COMPLETE AWAKE AND ALERT ORINETD X 3 LUNGS WITH DIMINISHED BASES BILATERAL BSA X4 QUADS. PT HAS BILATERAL AKA NOTED WITH SOME SCABBING NOTED AT STUMP SITE OF BOTH SIDES. HAS TELEMETRY IN PLACE AND ALSO JOHN ALARM NOTED.
[2017-05-20 12:00] VITALS: Ht 157.5 cm; Wt 68.8 kg
--- NOTE | 2017-05-20 12:08 | NUR ---
PT RESTING IN BED WITH NO DISTRESS NOTED FAMILY AT BEDSIDE. CALL LIGHT IN REACH. SIDE RAILS UP X 2
[2017-05-20 12:15] VITALS: BP 136/46
--- NOTE | 2017-05-20 14:08 | NUR ---
AT BEDSIDE.PT WITHOUT DISTRESS.DENIES NEEDS.MONITOR
--- NOTE | 2017-05-20 15:09 | NUR ---
COMPLAING OF CHEST PAIN.VSS 124/65,93,24,98 % ON 2 LITERS PER NASAL CANULA.PAGE TO DR DELUNA
--- NOTE | 2017-05-20 15:30 | NUR ---
ORDERS RECIEVED AND INITIATED PER DR. DELUNA
[2017-05-20 15:35] VITALS: BP 124/65
--- NOTE | 2017-05-20 15:40 | NUR ---
NITRO ORDERED FOR COMPLAINTS OF MORE CHEST PAIN.BP 100/45
[2017-05-20 16:31] LABS: CALC OSMOLALITY 298 mosm/kg (275-300); CARBON DIOXIDE 21.7 mmol/L (21.0-32.0); CHLORIDE - SERUM 111 mmol/L (98-107); CKMB 2.1 U/L (0.0-3.6); CREATINE KINASE 38 UL (21-215); CREATININE - SERUM 1.7 mg/dL (0.6-1.3); GLUCOSE 198 mg/dL (74-106); POTASSIUM - SERUM 5.1 mmol/L (3.5-5.1); PRO BNP 14342 pg/mL (0-125); SODIUM 139 mmol/L (136-145); UREA NITROGEN 54 mg/dL (7-18); eGFR NON AFRICAN AMERICAN 33 mL/min (90-120)
[2017-05-20 16:56] LABS: BASOPHILS 0.3 % (0-2); HEMATOCRIT 25.4 % (36.0-48.0); IMMATURE GRANULOCYTES 0.2 % (0-5); LYMPHOCYTES 37.8 % (15-50); MCH 29.3 pg (26.0-34.0); MCHC 30.7 g/dL (31.0-37.0); MCV 95.5 fL (80.0-100.0); MEAN PLATELET VOLUME 9.6 fL (7.4-10.4); MONOCYTES 9.4 % (2-11); NEUTROPHILS 44.3 % (40-80); RDW 14.6 % (11.5-14.5)
[2017-05-20 17:09] LABS: TROPONIN-I 0.092 ng/mL (0.000-0.060)
[2017-05-20 17:12] LABS: PLATELET COUNT 252 10x3/uL (130-400); RBC 2.66 10x6/uL (4.00-5.40); WBC 6.5 10x3/uL (4.8-10.8)
[2017-05-20 17:14] LABS: HEMOGLOBIN 7.8 g/dL (12-16)
[2017-05-20 18:28] LABS: % SATURATION 11 % (15-55); IRON 24 ug/dl (35-150); TOTAL IRON BIND CAPACITY 208 ug/dl (260-445); UNSAT IRON BIND CAPACITY 184 ug/dl (150-375)
--- NOTE | 2017-05-20 18:33 | NUR ---
remains without anymore chest pain,but has complained of lower back pain.meds as ordered per aug.cont plan of care
--- NOTE | 2017-05-20 19:15 | NUR ---
RECIVED CARE FROM DAY NURSE. PT LYING IN BED. REPORTS NO NEEDS. CALL LIGHT AT SIDE. IV TO RIGHT FA LOKESH. COMPANY AT SIDE.
[2017-05-20 20:00] VITALS: BP 130/51
--- NOTE | 2017-05-20 22:15 | NUR ---
IV IN RIGHT FA RED AND SWOLLEN. DC'D WITH TIP INTACT. RESITED TO LEFT AC 20 GAUGE X4 STICKS WITH GOOD BLOOD RETURN NOTED.
[2017-05-20 23:07] LABS: CKMB 2.2 U/L (0.0-3.6); CREATINE KINASE 43 UL (21-215)
[2017-05-20 23:08] LABS: TROPONIN-I 0.085 ng/mL (0.000-0.060)
[2017-05-21] VITALS (21 sets, daily range): BP systolic 100–149; BP diastolic 44–80
[2017-05-21 04:14] LABS: CKMB 2.2 U/L (0.0-3.6); CREATINE KINASE 64 UL (21-215)
[2017-05-21 04:18] LABS: TROPONIN-I 0.076 ng/mL (0.000-0.060)
--- NOTE | 2017-05-21 08:00 | NUR ---
REC'D IN BED AWAKE AND ALERT. RESP EVEN AND UNLABORED WITH NO DISTRESS NOTED. CAN EXPRESS NEEDS AND WANTS. NO C/O NOTED DENIES ANY PAIN AT THIS TIME. ASSESSMENT COMPLETED. C/L N REACH AT BEDSIDE.
[2017-05-21 09:18] LABS: BASOPHILS 0.4 % (0-2); EOSINOPHILS 9.4 % (0-7); HEMATOCRIT 26.2 % (36.0-48.0); HEMOGLOBIN 8.1 g/dL (12-16); IMMATURE GRANULOCYTES 0.1 % (0-5); MCH 29.6 pg (26.0-34.0); MCHC 30.9 g/dL (31.0-37.0); MCV 95.6 fL (80.0-100.0); MONOCYTES 9.3 % (2-11); NEUTROPHILS 37.8 % (40-80); PLATELET COUNT 276 10x3/uL (130-400); RBC 2.74 10x6/uL (4.00-5.40); RDW 14.3 % (11.5-14.5); WBC 6.7 10x3/uL (4.8-10.8)
[2017-05-21 09:34] LABS: ALBUMIN 2.4 g/dL (3.4-5.0); ANION GAP 19.7 mmol/L (8-16); BILIRUBIN - TOTAL 0.1 mg/dL (0.2-1.3); CALCIUM 8.4 mg/dL (8.5-10.1); CARBON DIOXIDE 16.8 mmol/L (21.0-32.0); CREATININE - SERUM 1.8 mg/dL (0.6-1.3); MAGNESIUM - SERUM 1.9 mg/dL (1.8-2.4); PHOSPHOROUS 6.3 mg/dL (2.5-4.9); POTASSIUM - SERUM 5.5 mmol/L (3.5-5.1); PROTEIN - SERUM 6.7 g/dL (6.4-8.2)
--- NOTE | 2017-05-21 11:07 | NUR ---
PT WAS MEDICATED WITH MORPHINE AT THIS TIME FOR C/O PAIN RATING 9/10 TO LOWER BACK.
--- NOTE | 2017-05-21 17:07 | NUR ---
PATIENT IN BED WITH BLOOD INFUSING AT THIS TIME. VS STABLE. NO COMPLAINTS OR PROBLEMS. CALL LIGHT WITHIN REACH.
--- NOTE | 2017-05-21 19:15 | NUR ---
RECEIVED CARE FROM DAY NURSE. PT SITTING UP IN BED WITH COMPANY AT SIDE. NO NEEDS VOICED. BLOOD INFUSING TO LEFT HAND. Q15 MIN VITALS IN PLACE.
--- NOTE | 2017-05-21 20:20 | NUR ---
RN NOTE: STARTED 2ND UNIT OF BLOOD. VITAL STABLE. CONSENT IN CHART. FAMILY MEMBERS ARE AT BEDSIDE. WILL CONTINUE TO MONITOR FOR NEEDS.
--- NOTE | 2017-05-21 23:29 | NUR ---
PT C/O CHEST PAIN. BP 128/69. HR 84. NITRO GIVEN AND O2 REAPPLIED.
--- NOTE | 2017-05-21 23:35 | NUR ---
REPORTS CHEST PAIN SOME BETTER BUT STILL THERE. NITRO GIVEN SL.
--- NOTE | 2017-05-21 23:36 | NUR ---
BP 121/65. HR 80.
--- NOTE | 2017-05-21 23:40 | NUR ---
REPORTS ALMOST ALL CHEST PAIN GONE.
[2017-05-22] VITALS: BP 129/74
[2017-05-22 05:00] VITALS: BP 131/61
[2017-05-22 05:49] LABS: BASOPHILS 0.4 % (0-2); EOSINOPHILS 7.8 % (0-7); IMMATURE GRANULOCYTES 0.1 % (0-5); LYMPHOCYTES 34.7 % (15-50); MCH 28.9 pg (26.0-34.0); MCHC 32.1 g/dL (31.0-37.0); MEAN PLATELET VOLUME 9.9 fL (7.4-10.4); MONOCYTES 10.8 % (2-11); NEUTROPHILS 46.2 % (40-80); PLATELET COUNT 224 10x3/uL (130-400); RDW 15.4 % (11.5-14.5); WBC 7.2 10x3/uL (4.8-10.8)
[2017-05-22 05:57] LABS: HEMATOCRIT 32.7 % (36.0-48.0); HEMOGLOBIN 10.5 g/dL (12-16); MCV 90.1 fL (80.0-100.0); RBC 3.63 10x6/uL (4.00-5.40)
[2017-05-22 06:15] LABS: ANION GAP 18.8 mmol/L (8-16); CALCIUM 8.4 mg/dL (8.5-10.1); CARBON DIOXIDE 17.1 mmol/L (21.0-32.0); CREATININE - SERUM 1.8 mg/dL (0.6-1.3); POTASSIUM - SERUM 5.9 mmol/L (3.5-5.1)
--- NOTE | 2017-05-22 07:51 | NUR ---
REC'D IN BED AWAKE AND ALERT. RESP EVEN AND UNLABORED WITH NO DISTRESS NOTED. CAN EXPRESS NEEDS AND WANTS. DENIES ANY PAIN OR DISCOMFORT AT THIS TIME. ASSESSMENT COMPLETED. C/L IN REACH AT BEDSIDE.
--- NOTE | 2017-05-22 08:01 | NUR ---
SLEEPING WITHOUT DISTRESS.CALL LIGHT IN REACH
[2017-05-22 09:10] VITALS: BP 130/98
--- NOTE | 2017-05-22 12:24 | NUR ---
PT RECIEVED FROM END MAKER. TR-BAND NOTED TO R WRIST. SR WITH BUNDLE BLOCK NOTIED PER ARTIST'S REPRESENTATIVE. WILL CONT TO MONITOR. CALL LIGHT WITH IN REACH
--- NOTE | 2017-05-22 12:38 | NUR ---
VS WNL. RIGHT WRIST STABLE WITH TR BAND INTACT. WILL MONITOR.
--- NOTE | 2017-05-22 16:01 | NUR ---
TR BAND DCD WITHOUT BLEEDING OR HEMATOMA NOTED. WILL MONITOR.
--- NOTE | 2017-05-22 20:16 | NUR ---
PT RESTING IN BED WIHT AT BEDSIDE. ALERT /ORIENTED. STILL HAS TR BAND ON RIGHT WRIST, BUT IT IS COMPLETELY UNINFLATED WITH NO SIGNS OF ACTIVE BLEEDING. NONLABORED RESPIRATIONS ON ROOM AIR, O2 AVAILABLE IF NEEDED. PT IS A BILATERAL AKA WITH GOOD BED MOBILITY. PT WILL BE NPO AFTER MIDNIGHT FOR A SECOND HEART CATH IN AM. SEE ASSESSMENT CPOC.
--- NOTE | 2017-05-22 22:14 | NUR ---
PT C/O PAIN GENERALIZED WITH RESPIRATIONS. SHE HAS JUST RECIEVED A BREATHING TREATMENT. REMINDED PT THAT SHE IS STILL DUE FOR ANOTHER HEART CATH IN THE AM AND THAT THE BODY TAKES SOME TIME TO ACCLIMATE TO THE IMPROVED OXYGENATION FROM THE STENT PLACED TODAY. PT ALSO NOT WEARING HER O2, PLACED O2 @ 2L/NC ON AT THIS TIME AND MEDICATED WITH 4MG MORPHINE SIVP. ASSISTED PT ONTO/OFF BEDPAN AND PROVIDED PERICARE/NYSTATION TO REDDENED FOLDS. WILL MONITOR.
[2017-05-22 22:39] VITALS: BP 144/81
--- NOTE | 2017-05-23 02:00 | NUR ---
DURING BATH PER RETORT PRE COOKER'S, NOTED POSSIBLE BED BUGS. PT PLACED ON TEMPORARY ISOLATION UNTIL CAN BE ASSESSED BY INFECTION CONTROL MURSE.
[2017-05-23 05:58] LABS: BASOPHILS 0.5 % (0-2); EOSINOPHILS 8.4 % (0-7); HEMATOCRIT 33.5 % (36.0-48.0); HEMOGLOBIN 10.7 g/dL (12-16); IMMATURE GRANULOCYTES 0.2 % (0-5); LYMPHOCYTES 24.7 % (15-50); MCHC 31.9 g/dL (31.0-37.0); MCV 90.8 fL (80.0-100.0); MEAN PLATELET VOLUME 9.8 fL (7.4-10.4); MONOCYTES 10.7 % (2-11); NEUTROPHILS 55.5 % (40-80); PLATELET COUNT 213 10x3/uL (130-400); RBC 3.69 10x6/uL (4.00-5.40); RDW 15.2 % (11.5-14.5); WBC 6.2 10x3/uL (4.8-10.8)
[2017-05-23 06:10] LABS: ANION GAP 16.4 mmol/L (8-16); CALCIUM 8.5 mg/dL (8.5-10.1); CARBON DIOXIDE 18.7 mmol/L (21.0-32.0); POTASSIUM - SERUM 5.1 mmol/L (3.5-5.1)
[2017-05-23 06:16] VITALS: BP 135/69
[2017-05-23 07:41] VITALS: BP 120/68
[2017-05-23 11:19] VITALS: BP 126/74
--- NOTE | 2017-05-23 12:25 | NUR ---
CONSENTS SIGNED. PRE-OPS GIVEN. LEAVING FOR STUDENT ACCOUNTS COORDINATOR BY BED. ROOM SPRYED BY EVS FOR POSSIBLE BED BUGS. WILL CONT. PLAN OF CARE.
--- NOTE | 2017-05-23 13:30 | NUR ---
BACK FROM CODE MACHINE OPERATOR. VS WNL. RIGHT WRIST STABLE WITH TR BAND INTACT. WILL MONITOR.
[2017-05-23 15:45] VITALS: BP 86/38
--- NOTE | 2017-05-23 17:22 | NUR ---
TR BAND DCD WITHOUT BLEEDING OR HEMATOMA NOTED. WILL MONITOR.
--- NOTE | 2017-05-23 19:49 | NUR ---
PT SITTING UP IN BED, SIGNIFICANT OTHER AT BEDSIDE. PT IS GROGGY AND STATES SHE IS HAVING TROUBLE WAKING UP FROM THE ANESTHESIA FROM HER CARDIAC CATH EARILER TODAY. PT DENIES ANY NEEDS. I HAVE PLACED HER O2 VIA NC BACK ON HER FOR COMFORT. WILL CONTINUE TO MONITOR CLOSELY.
[2017-05-23 21:12] VITALS: BP 131/70
[2017-05-24 01:50] VITALS: BP 132/66
[2017-05-24 05:54] VITALS: BP 131/65
[2017-05-24 07:00] VITALS: BP 123/53
[2017-05-24 08:26] LABS: BASOPHILS 0.3 % (0-2); EOSINOPHILS 9.4 % (0-7); HEMATOCRIT 30.7 % (36.0-48.0); HEMOGLOBIN 9.8 g/dL (12-16); IMMATURE GRANULOCYTES 0.2 % (0-5); LYMPHOCYTES 25.1 % (15-50); MCHC 31.9 g/dL (31.0-37.0); MCV 90.8 fL (80.0-100.0); MEAN PLATELET VOLUME 9.5 fL (7.4-10.4); MONOCYTES 11.2 % (2-11); NEUTROPHILS 53.8 % (40-80); PLATELET COUNT 180 10x3/uL (130-400); RBC 3.38 10x6/uL (4.00-5.40); RDW 14.8 % (11.5-14.5); WBC 6.1 10x3/uL (4.8-10.8)
[2017-05-24 08:30] LABS: ANION GAP 16.6 mmol/L (8-16); CALCIUM 7.9 mg/dL (8.5-10.1); CARBON DIOXIDE 18.4 mmol/L (21.0-32.0)
[2017-05-24] MEDS ORDERED: COREG12.5 MG PO (10:46)
[2017-05-24] MEDS ORDERED: PLAVIX75 MG PO (10:47)
[2017-05-24 11:00] VITALS: BP 128/64
--- NOTE | 2017-05-24 11:38 | NUR ---
Patient Name: HARINDER OBANDO Admission Status: ER Accout number: [id number] Admission Date: 05-20-2017 : 1965 Admission Diagnosis:ACUTE ON CHRONIC SYSTOLIC (CONGESTIVE) HEART FAILURE Attending: ISABELL DELUNA Current LOS: 4 Anticipated DC Date: 05-24-2017 Planned Disposition: Home Primary Insurance: MEDICARE A & B Discharge Planning Comments: * Is the patient Alert and Oriented? Yes 0 * How many steps to enter\exit or inside your home? RAMP 0 * PCP DR. DELUNA 0 * Pharmacy [facility] [address] * Preadmission Environment Home with Family 0 * ADLs Partial Dependent 0 * Partial ADLs (Assistance needed) Toileting 0 * Equipment Bedside Commode Nebulizer Shower Chair Wheelchair 0 * Other Equipment NO MEDICAL EQUIPMENT PROVIDER PREFERENCE 0 * List name and contact numbers for known caregivers / representatives who currently or will assist patient after discharge: CHE BEEBE, SIGNIFICANT OTHER, 0 * Community resources currently utilized None 0 * Please name any agencies selected above. NONE 0 * Additional services required to return to the preadmission environment? No 0 * Can the patient safely return to the preadmission environment? Yes 0 * Has this patient been hospitalized within the prior 30 days at any hospital? Yes 0 CM MET WITH PT IN ROOM TO DISCUSS DISCHARGE PLANNING AND NEEDS. PT REPORTS LIVING AT HOME INDEPENDENTLY WITH HER SIGNIFICANT OTHER WHO ASSISTS HER WITH TRANSFERS AND IS AVAILABLE FOR ANYTHING ELSE THAT SHE MAY NEED HELP WITH. PT HAS BEDSIDE COMMODE, NEBULIZER, SHOWER CHAIR AND WHEELCHAIR WITH NO MEDICAL EQUIPMENT PROVIDER PREFERENCE. PT HAS NO OUTSIDE SERVICES ASSISTING IN THE HOME. CM DISCUSSED AVAILABILITY OF HOME HEALTH, REHAB SERVICES AND MEDICAL EQUIPMENT. PT DENIES DISCHARGE NEEDS, REPORTS HER SIGNIFICANT OTHER WILL PICK HER UP FOR DISCHARGE HOME. IMPORTANT MESSAGE FROM MEDICARE PROVIDED AND EXPLAINED. CM ENCOURAGED PT TO ACCEPT HOME HEALTH, EXPLAINED THAT THE SERVICE MAY BE ABLE TO ASSIST PT WITH DECREASING READMISSION TO THE HOSPITAL; PT DECLINED HOME HEALTH. CM OFFERED HOME HEALTH BROCHURES TO PT WHO ACCEPTED THEM AND STATED ONCE AGAIN THAT SHE DOES NOT NEED OR WANT HOME HEALTH. CM EXPLAINED THAT IF PT CHANGES HER MIND AFTER LEAVING THE HOSPITAL, CALL DR. DELUNA'S OFFICE AND REQUEST THE SERVICE AND IF DR. DELUNA AGREES WITH THE NEED, IT CAN BE ARRANGED FROM THE PHYSICIAN'S OFFICE. PT STATED UNDERSTANDING, DENIED FURTHER DISCHARGE NEEDS. Personal Driver: Daniele Vega
--- NOTE | 2017-05-24 15:03 | NUR ---
IV AND TELEMETRY DCD. DC PLANS GIVEN. UNDERSTANDING VOICED. ESCORTEDTO CAR BY W/C.
--- NOTE | 2017-05-24 16:10 | NUR ---
ESCORTED TO CAR BY W/C.
--- NOTE | 2017-05-31 15:46 | CN ---
PATIENT NAME:HARINDER AVENDANO MEDICAL RECORD: [id number] : 63 LOCATION:D. D.2117 ADMIT DATE: 05/20/17 ACCOUNT: [id number] CONSULTING PHYSICIAN: OSVALDO QUINTANA MD REFERRING PHYSICIAN: ISABELL DELUNA MD DATE OF CONSULTATION: 05/21/2017 DIAGNOSES: 1. Chest pain. 2. Cardiomyopathy. 3. Congestive heart failure, chronic systolic dysfunction. 4. Hypertension. 5. Hyperlipidemia. 6. Peripheral vascular disease. HISTORY OF PRESENT ILLNESS: Mrs. Avendano is well known to us with a past history of ischemic cardiomyopathy, ejection fraction in the 30% to 35% range. She did develop chest pain and shortness of breath. She is very anemic, hemoglobin of 8.1. She is undergoing a workup for this. She has had this in the past. Her EKG is with no changes. Troponin is mildly elevated. PHYSICAL EXAMINATION: GENERAL APPEARANCE: Well-nourished, well-developed, appears stated age. Level of distress, comfortable. PSYCHIATRIC: Mental status, alert, normal affect. Orientation, oriented to time, place and person. EYES: Lids and conjunctiva, noninjected. No discharge, no pallor. ENT: Lips, teeth, gums, normal dentition. Oropharynx, no cyanosis, no pallor. NECK: Carotid arteries, bilateral normal upstroke, no bruits, no thrills. JUGULAR VEINS: No jugular venous pressure or distention. CERVICAL LYMPH NODES: Nontender, nonenlarged. THYROID: Not enlarged. Nontender. No nodules. LUNGS: Respiratory effort, unlabored. CHEST: Normal curvature. No thoracic deformity. No chest wall tenderness. Percussion, resonant. Auscultation, clear. No wheezes, no rales, no rhonchi. CARDIOVASCULAR: Precordial exam, nondisplaced. No heaves or pericardial thrills. Rate and rhythm, regular. Heart sounds, normal S1, normal S2. No S3, no gallop, no rub. Systolic murmur, not heard. Diastolic murmur, not heard. EXTREMITIES: No cyanosis, no edema. Peripheral pulses, full and equal in all extremities, except as noted. No bruits appreciated. ABDOMEN: Soft, nondistended. Normal aorta. No bruit. Nontender. No masses. Liver, nontender, no hepatomegaly. Spleen, nontender, no splenomegaly. MUSCULOSKELETAL: No joint tenderness. No joint swelling. No erythema. NEUROLOGICAL: Normal gait, normal strength, normal tone. SKIN: Warm and dry. REVIEW OF SYSTEMS: The patient reports easy bruising but reports no swollen glands. The patient reports no fever, no night sweats, no significant weight gain, no significant weight loss. No significant exercise tolerance. The patient reports no dry eyes, no irritation, no vision change. Patient reports no difficulty hearing and no ear pain. Patient reports no frequent nose bleeds or nose and sinus problems. Patient reports on arm pain on exertion. No shortness of breath while lying down. No history of heart murmur. Patient reports no cough, no wheezing or coughing up blood. Patient reports no abdominal pain, no vomiting. Normal appetite. No diarrhea and not vomiting CONSULT REPORT [id number] HARINDER AVENDANO blood. No nausea and no constipation. Patient reports no incontinence. No difficulty urinating. No hematuria. No increased frequency. Patient reports no muscle aches. No weakness, no arthralgias, no back pain. No swelling of the extremities. Patient reports no abnormal mole, no jaundice, no rashes. Reports no loss of consciousness. No weakness and no numbness. No seizures, dizziness, or headaches. The patient reports no depression, no sleep disturbance, feeling safe in a relationship and no alcohol abuse. Patient reports on fatigue. Reports no runny nose or sinus pressure. No itching, no hives, and no frequent sneezing. OVERALL IMPRESSION: Chest pain associated with anemia, elevated troponin. I do not see in our records where she has had a cardiac catheterization in the last 5 years. She very well may have hemodynamically significant recurrent coronary artery disease. We will get a blood count first, most likely proceed with coronary angiography after that. TRANSINT:[id number] Voice Confirmation ID: [id number] DOCUMENT ID: [id number] OSVALDO QUINTANA MD at 1546 CC: [id number] DICTATION DATE: 05/21/17 1010 TICKET COUNTER: 05/21/17 1059 DIS IN 05/24/17 [place] [address]
--- NOTE | 2017-05-31 15:46 | EC ---
PATIENT:HARINDER OBANDO DATE OF SERVICE: 05/20/17 SEX: F MEDICAL RECORD: [id number] DATE OF : 63 LOCATION:D. D.211 AGE OF PATIENT: 51 ADMISSION DATE: 05/20/17 REFERRING PHYSICIAN: INTERPRETING PHYSICIAN: OSVALDO REYES MD ECHOCARDIOGRAM REPORT ECHO CHARGES 4 ECHO COMPLETE CLINICAL DIAGNOSIS: CHF/ELEVATED PROBNP ECHOCARDIOGRAPHIC MEASUREMENTS (adult normal given) AC root (d.<3.7cm) 2.7 cm LV Septum d (<1.2 cm> 1.2 cm Valve Excursion 1.4 cm LV Septum (systole) 1.8 cm Left Atria (s.<4.0cm> 3.5 cm LVPW d(<1.2cm) 1.2 cm RV (d.<2.3cm) 2.5 cm LVPW (sytole) 1.7 cm LV diastole(<5.6CM) 5.8 cm MV E-F(>70mm/sec) cm LV systole 4.2 cm LVOT Diameter 1.8 cm MV exc.(>10mm) cm Est.ejection fraction (50-75%) % Pericardial Effusion Y DOPPLER: LVIT cm/sec A 75.0 cm/sec E 131 cm/sec LA cm/sec RVSP 27.3 mmHg LVOT 93.0 cm/sec AOP1/2T m/s Asc. Ao 136 cm/sec RVOT 70.0 cm/sec RA cm/sec PA 92.0 cm/sec AV Gradient Peak 7.4 mmHg AV Mean 3.8 mmHg AV Area 1.8 cm MV Gradient Peak 8.3 mmHg MV Mean 3.1 mmHg MV Area cm COMMENTS: Animal Trainer Supervisor: 1 BENJAMÍN BOWDENOE Rn Urgent Care: 1 Dr. Reyes TAPE# PACS DATE OF SERVICE: 05/20/2017 Echocardiogram FINDINGS: 1. Left ventricular chamber size is dilated. Left ventricular systolic function is markedly reduced, overall ejection fraction 20%. 2. Left atrium is within normal limits at 3.5 cm. Right atrium and right ventricular chamber sizes are as well within normal limits. 3. Valvular structures have normal structure and motion. ECHOCARDIOGRAM REPORT [id number] HARINDER OBANDO 4. Doppler interrogation reveals moderate mitral regurgitation, mild tricuspid regurgitation, no other valvular insufficiency or stenosis. Pulmonary systolic pressure is estimated at 27 mmHg. 5. No evidence of pericardial effusion or left ventricular thrombus. TRANSINT:[id number] Voice Confirmation ID: [id number] DOCUMENT ID: [id number] OSVALDO REYES MD at 1546 CC: [id number] DICTATION DATE: 05/21/17 1039 TRANSPORTATION DESIGN ENGINEER: 05/21/17 1100 DIS IN 05/24/17 [place] [id number] [place] [id number]
--- NOTE | 2017-05-31 15:46 | OP ---
PATIENT NAME: HARINDER OBANDO MEDICAL RECORD: [id number] :63 LOCATION:D.M2 D.2117 ADMISSION DATE:05/20/17 SURGEON: OSVALDO QUINTANA MD DATE OF OPERATION: 05/23/2017 PROCEDURES: 1. PTCA stent to LAD. 2. PTCA stent to left circumflex. 3. Selective coronary angiography. INDICATION: Angina and coronary artery disease. PROCEDURE IN DETAIL: After informed consent was obtained and after a detailed explanation of the risks, benefits as well as alternative therapies, the patient elected to proceed with angiogram and angioplasty. The right radial area was prepped and draped in normal sterile fashion. The right radial artery was cannulated via modified Seldinger technique with placement of 6-[place] sheath. All catheters exchanged through this sheath. FINDINGS: The left circumflex ostium has a 90% stenosis followed by a second 90% stenosis in the mid vessel. These were addressed with a 3.0 x 26 mm [place] stent. This caused plaque shift into the LAD causing greater than 90% stenosis of the LAD ostium. This was addressed with a 3.0 x 8 mm Segun. Result was 0% residual stenosis. OVERALL IMPRESSION: Successful percutaneous transluminal coronary angioplasty stent of the left circumflex and left anterior descending going from 90% initial stenosis to 0% residual. TRANSINT:[id number] Voice Confirmation ID: [id number] DOCUMENT ID: [id number] OSVALDO QUINTANA MD at 1546 CC: [id number] DICTATION DATE: 05/23/17 1300 MILLSTONE CLEANER: 05/23/17 1313 DIS IN 05/24/17 [place] [id number] [place] [address]
--- NOTE | 2017-05-31 15:46 | OP ---
PATIENT NAME: HARINDER OBANDO MEDICAL RECORD: [id number] :63 LOCATION:D.M2 D.2117 ADMISSION DATE:05/20/17 SURGEON: OSVALDO QUINTANA MD DATE OF OPERATION: 05/22/2017 PROCEDURES: 1. PTCA stent, LAD. 2. Left heart catheterization. 3. Selective coronary angiography. 4. Left ventriculogram. INDICATION: Cardiomyopathy, angina, and coronary artery disease. PROCEDURE IN DETAIL: After informed consent was obtained and after a detailed explanation of the risks, benefits as well as alternative therapies, the patient elected to proceed with angiogram and angioplasty. The right radial area was prepped and draped in normal sterile fashion. The right radial artery was cannulated via modified Seldinger technique with placement of a 6-Bulgarian sheath. All catheters exchanged through this sheath. FINDINGS: The left ventriculogram was performed in standard 30-degree ESCALANTE view reveals global hypokinesis throughout all segments. Ejection fraction 20% to 25%. SELECTIVE CORONARY ANGIOGRAPHY: 1. Left main is with no significant angiographic disease. 2. Left anterior descending has 80% stenosis in the mid vessel. 3. The left circumflex has 80% stenosis at the ostium followed by at least 70% to 80% stenosis in mid vessel. 4. The right coronary artery is totally occluded in the mid vessel, it fills via left to right collaterals. PTCA STENT OF THE LAD: The stent used was a 2.5 x 22 mm Segun. Result was 0% residual stenosis. OVERALL IMPRESSION: Successful percutaneous transluminal coronary angioplasty stent of the left anterior descending going from 80% initial stenosis to 0% residual. PLAN: Plan for PTCA stent of the left circumflex in the near future. TRANSINT:[id number] Voice Confirmation ID: [id number] DOCUMENT ID: [id number] OSVALDO QUINTANA MD at 1546 CC: [id number] DICTATION DATE: 05/22/17 1159 LINE WORKER: 05/22/17 1211 DIS IN 05/24/17 [place] [id number] [place] [id number]
== END 2017-05-24 16:10 | disposition home or self-care (01) | DRG 246 ==
LOC: D.ER 21:05 → D.MS 05-20 01:13 → D.M2 05-20 01:13
PROVIDERS: Emergency Medicine; Internal Medicine Interventional Cardiology; ADMIT Family Medicine
PROC: 4A023N7 Measurement of Cardiac Sampling and Pressure, Left Heart, Percutaneous Approach (ICD-10-PCS; 2017-05-22)
PROC: B2111ZZ Fluoroscopy of Multiple Coronary Arteries using Low Osmolar Contrast (ICD-10-PCS; 2017-05-22)
PROC: B2151ZZ Fluoroscopy of Left Heart using Low Osmolar Contrast (ICD-10-PCS; 2017-05-22)
PROC: 027034Z Dilation of Coronary Artery, One Artery with Drug-eluting Intraluminal Device, Percutaneous Approach (ICD-10-PCS; principal; 2017-05-22 11:00)
PROC: 027135Z Dilation of Coronary Artery, Two Arteries with Two Drug-eluting Intraluminal Devices, Percutaneous Approach (ICD-10-PCS; 2017-05-23)
DX: I25.110 Atherosclerotic heart disease of native coronary artery with unstable angina pectoris (principal); J96.01 Acute respiratory failure with hypoxia; I50.23 Acute on chronic systolic (congestive) heart failure; N17.9 Acute kidney failure, unspecified; I11.0 Hypertensive heart disease with heart failure; J44.9 Chronic obstructive pulmonary disease, unspecified; E78.5 Hyperlipidemia, unspecified; I73.9 Peripheral vascular disease, unspecified; F41.9 Anxiety disorder, unspecified; F32.9 Major depressive disorder, single episode, unspecified; I42.9 Cardiomyopathy, unspecified; D50.9 Iron deficiency anemia, unspecified; E11.40 Type 2 diabetes mellitus with diabetic neuropathy, unspecified; Z79.4 Long term (current) use of insulin; K21.9 Gastro-esophageal reflux disease without esophagitis; M19.90 Unspecified osteoarthritis, unspecified site; E03.9 Hypothyroidism, unspecified; Z86.73 Personal history of transient ischemic attack (TIA), and cerebral infarction without residual deficits; Z95.5 Presence of coronary angioplasty implant and graft; Z89.612 Acquired absence of left leg above knee; Z89.611 Acquired absence of right leg above knee; Z87.891 Personal history of nicotine dependence

== ENCOUNTER 2017-05-27 13:49 | Inpatient (IN) | payer MEDICARE ==
[~2017-05-27] VITALS: Ht 157.5 cm; Wt 99.8 kg
[~2017-05-27 13:49] MED LIST changes: +COREG12.5 MG PO; +FUROSEMIDE20 MG PO
[2017-05-27 15:47] LABS: BASOPHILS 0.7 % (0-2); HEMATOCRIT 39.1 % (36.0-48.0); HEMOGLOBIN 12.2 g/dL (12-16); IMMATURE GRANULOCYTES 0.2 % (0-5); LYMPHOCYTES 23.7 % (15-50); MCH 29.1 pg (26.0-34.0); MCHC 31.2 g/dL (31.0-37.0); MCV 93.3 fL (80.0-100.0); MEAN PLATELET VOLUME 10.3 fL (7.4-10.4); MONOCYTES 7.6 % (2-11); NEUTROPHILS 65.8 % (40-80); PLATELET COUNT 183 10x3/uL (130-400); RBC 4.19 10x6/uL (4.00-5.40); WBC 4.1 10x3/uL (4.8-10.8)
[2017-05-27 17:02] LABS: ANION GAP 21.3 mmol/L (8-16); CALCIUM 8.8 mg/dL (8.5-10.1); CARBON DIOXIDE 17.5 mmol/L (21.0-32.0); CREATININE - SERUM 1.5 mg/dL (0.6-1.3); POTASSIUM - SERUM 4.8 mmol/L (3.5-5.1)
[2017-05-27 17:27] LABS: MAGNESIUM - SERUM 1.8 mg/dL (1.8-2.4); THYROID STIMULATING HORMONE 7.75 uIU/mL (0.36-3.74)
[2017-05-27 18:24] VITALS: BP 169/86; BMI 25.9
[2017-05-27 19:00] VITALS: BP 172/88
[2017-05-27] MEDS ORDERED: LIPITOR80 MG PO (19:16)
[2017-05-27] MEDS ORDERED: FUROSEMIDE40 MG PO (19:17)
[2017-05-27 22:44] LABS: CKMB 2.9 U/L (0.0-3.6); CREATINE KINASE 55 UL (21-215)
[2017-05-27 22:46] LABS: TROPONIN-I 0.191 ng/mL (0.000-0.060)
[2017-05-28] VITALS: BP 164/78
[2017-05-28 03:41] LABS: EOSINOPHILS 4.3 % (0-7); HEMATOCRIT 36.2 % (36.0-48.0); HEMOGLOBIN 11.3 g/dL (12-16); MCH 28.8 pg (26.0-34.0); MCHC 31.2 g/dL (31.0-37.0); MCV 92.3 fL (80.0-100.0); MONOCYTES 13.1 % (2-11); NEUTROPHILS 54.6 % (40-80); PLATELET COUNT 177 10x3/uL (130-400); RBC 3.92 10x6/uL (4.00-5.40); WBC 4.2 10x3/uL (4.8-10.8)
[2017-05-28 04:00] VITALS: BP 171/76
[2017-05-28 04:14] LABS: ALBUMIN 2.6 g/dL (3.4-5.0); ALKALINE PHOSPHATASE 99 U/L (46-116); ALT (SGPT) 14 U/L (10-68); BILIRUBIN - TOTAL 0.31 mg/dL (0.2-1.3); CALC OSMOLALITY 284 mosm/kg (275-300); CALCIUM 8.5 mg/dL (8.5-10.1); CARBON DIOXIDE 20.6 mmol/L (21.0-32.0); CHLORIDE - SERUM 107 mmol/L (98-107); CKMB 2.8 U/L (0.0-3.6); CREATINE KINASE 50 UL (21-215); CREATININE - SERUM 1.4 mg/dL (0.6-1.3); GLUCOSE 91 mg/dL (74-106); MAGNESIUM - SERUM 1.6 mg/dL (1.8-2.4); PRO BNP 16299 pg/mL (0-125); PROTEIN - SERUM 7.1 g/dL (6.4-8.2); SODIUM 139 mmol/L (136-145); TROPONIN-I 0.175 ng/mL (0.000-0.060); UREA NITROGEN 32 mg/dL (7-18); eGFR NON AFRICAN AMERICAN 42 mL/min (90-120)
[2017-05-28 08:00] VITALS: BP 159/70
[2017-05-28 08:51] VITALS: Ht 157.5 cm; Wt 99.8 kg
[2017-05-28 10:04] LABS: TROPONIN-I 0.165 ng/mL (0.000-0.060)
[2017-05-28 12:43] VITALS: BP 148/69
[2017-05-28 16:42] VITALS: BP 133/76
[2017-05-28 20:58] VITALS: BP 152/67
[2017-05-29 00:02] VITALS: BP 139/62
[2017-05-29 05:54] VITALS: BP 141/59
[2017-05-29 05:54] LABS: BASOPHILS 0.3 % (0-2); EOSINOPHILS 3.4 % (0-7); HEMATOCRIT 34.7 % (36.0-48.0); HEMOGLOBIN 10.8 g/dL (12-16); IMMATURE GRANULOCYTES 0.2 % (0-5); LYMPHOCYTES 16.4 % (15-50); MCHC 31.1 g/dL (31.0-37.0); MEAN PLATELET VOLUME 10.7 fL (7.4-10.4); MONOCYTES 10.5 % (2-11); NEUTROPHILS 69.2 % (40-80); PLATELET COUNT 153 10x3/uL (130-400); RBC 3.73 10x6/uL (4.00-5.40); RDW 14.8 % (11.5-14.5)
[2017-05-29 06:02] LABS: WBC 5.9 10x3/uL (4.8-10.8)
[2017-05-29 06:07] LABS: ANION GAP 14.5 mmol/L (8-16); CALCIUM 8.1 mg/dL (8.5-10.1); CARBON DIOXIDE 21.4 mmol/L (21.0-32.0); CREATININE - SERUM 1.4 mg/dL (0.6-1.3); MAGNESIUM - SERUM 1.8 mg/dL (1.8-2.4); PHOSPHOROUS 3.8 mg/dL (2.5-4.9); POTASSIUM - SERUM 3.9 mmol/L (3.5-5.1)
[2017-05-29 08:20] VITALS: BP 145/67
[2017-05-29 11:15] VITALS: BP 132/76
[2017-05-29 15:45] VITALS: BP 129/58
[2017-05-29 19:00] VITALS: BP 140/71
[2017-05-30 04:00] VITALS: BP 141/61
[2017-05-30 05:47] LABS: BASOPHILS 0.7 % (0-2); EOSINOPHILS 3.6 % (0-7); HEMATOCRIT 31.8 % (36.0-48.0); IMMATURE GRANULOCYTES 0.2 % (0-5); LYMPHOCYTES 27.7 % (15-50); MCH 29.3 pg (26.0-34.0); MCHC 31.4 g/dL (31.0-37.0); MCV 93.3 fL (80.0-100.0); MEAN PLATELET VOLUME 10.1 fL (7.4-10.4); MONOCYTES 14.1 % (2-11); NEUTROPHILS 53.7 % (40-80); PLATELET COUNT 129 10x3/uL (130-400); RBC 3.41 10x6/uL (4.00-5.40); RDW 14.7 % (11.5-14.5)
[2017-05-30 05:55] LABS: WBC 4.4 10x3/uL (4.8-10.8)
[2017-05-30 06:05] LABS: ANION GAP 13.3 mmol/L (8-16); CALCIUM 7.6 mg/dL (8.5-10.1); CARBON DIOXIDE 20.1 mmol/L (21.0-32.0); CREATININE - SERUM 1.6 mg/dL (0.6-1.3); POTASSIUM - SERUM 4.4 mmol/L (3.5-5.1)
[2017-05-30 07:55] VITALS: BP 158/62
[2017-05-30 11:52] VITALS: BP 135/60
[2017-05-30 16:11] VITALS: BP 122/72
[2017-05-30 21:08] VITALS: BP 152/84
[2017-05-31 01:58] VITALS: BP 162/83
[2017-05-31 04:21] VITALS: BP 148/66
[2017-05-31 05:32] LABS: BASOPHILS 0.3 % (0-2); EOSINOPHILS 0 % (0-7); HEMATOCRIT 35.9 % (36.0-48.0); HEMOGLOBIN 11.2 g/dL (12-16); MCH 28.9 pg (26.0-34.0); MCHC 31.2 g/dL (31.0-37.0); MCV 92.8 fL (80.0-100.0); MEAN PLATELET VOLUME 10.8 fL (7.4-10.4); MONOCYTES 2.1 % (2-11); NEUTROPHILS 81.6 % (40-80); PLATELET COUNT 133 10x3/uL (130-400); RBC 3.87 10x6/uL (4.00-5.40); RDW 14.5 % (11.5-14.5); WBC 3.8 10x3/uL (4.8-10.8)
[2017-05-31 06:00] LABS: ANION GAP 14.8 mmol/L (8-16); CALCIUM 8.6 mg/dL (8.5-10.1); CARBON DIOXIDE 22.1 mmol/L (21.0-32.0); CREATININE - SERUM 1.5 mg/dL (0.6-1.3); POTASSIUM - SERUM 4.9 mmol/L (3.5-5.1)
[2017-05-31 07:57] VITALS: BP 148/63
[2017-05-31 11:13] LABS: HEPATITIS C ANTIBODY 0.1 (0.0-0.9)
[2017-05-31 11:45] VITALS: BP 120/68
[2017-05-31 15:49] VITALS: BP 163/76
[2017-05-31 21:32] VITALS: BP 159/75
[2017-06-01 03:26] VITALS: BP 162/74
[2017-06-01 07:48] VITALS: BP 156/67
[2017-06-01 08:56] LABS: ANION GAP 13.4 mmol/L (8-16); CALCIUM 8.5 mg/dL (8.5-10.1); CARBON DIOXIDE 23.4 mmol/L (21.0-32.0); CREATININE - SERUM 1.5 mg/dL (0.6-1.3); POTASSIUM - SERUM 4.8 mmol/L (3.5-5.1)
[2017-06-01] MEDS ORDERED: Levaquin PO (09:27)
[2017-06-01] MEDS ORDERED: BROVANA15 MCG/2 M INH (09:27)
[2017-06-01] MEDS ORDERED: IPRAT-ALBUT 0.5-3 ML UPD (09:28)
[2017-06-01] MEDS ORDERED: PULMICORT0.5 MG/21 UPD (09:29)
[2017-06-01] MEDS ORDERED: BENZONATATE200 MG PO (09:29)
[2017-06-01] MEDS ORDERED: FLUTICASONE PRO16 GM NASAL (09:30)
[2017-06-01] MEDS ORDERED: FLORAJEN3 CAPS460 MG PO (09:31)
[2017-06-01 11:32] VITALS: BP 169/79
== END 2017-06-01 13:35 | disposition home or self-care (01) | DRG 682 ==
LOC: D.ER 13:49 → D.M2 17:14
PROVIDERS: Emergency Medicine; Family Medicine; Internal Medicine Nephrology
DX: N17.9 Acute kidney failure, unspecified (principal); J18.9 Pneumonia, unspecified organism; J96.01 Acute respiratory failure with hypoxia; I50.23 Acute on chronic systolic (congestive) heart failure; J44.0 Chronic obstructive pulmonary disease with (acute) lower respiratory infection; I25.110 Atherosclerotic heart disease of native coronary artery with unstable angina pectoris; I11.0 Hypertensive heart disease with heart failure; E11.40 Type 2 diabetes mellitus with diabetic neuropathy, unspecified; Z79.4 Long term (current) use of insulin; M19.90 Unspecified osteoarthritis, unspecified site; K21.9 Gastro-esophageal reflux disease without esophagitis; F41.9 Anxiety disorder, unspecified; F32.9 Major depressive disorder, single episode, unspecified; E78.5 Hyperlipidemia, unspecified; E86.0 Dehydration; E83.51 Hypocalcemia; E83.42 Hypomagnesemia; I25.5 Ischemic cardiomyopathy; E03.9 Hypothyroidism, unspecified; D50.9 Iron deficiency anemia, unspecified; Z89.612 Acquired absence of left leg above knee; Z89.611 Acquired absence of right leg above knee; Z86.73 Personal history of transient ischemic attack (TIA), and cerebral infarction without residual deficits; Z95.5 Presence of coronary angioplasty implant and graft

== ENCOUNTER 2017-07-13 12:48 | Emergency (ER) | payer MEDICARE ==
[2017-05-28 08:51] VITALS: BMI 25.9
[~2017-07-13 12:48] MED LIST changes: +BENZONATATE200 MG PO; +BROVANA15 MCG/2 M INH; +FLUTICASONE PRO16 GM NASAL; +FUROSEMIDE40 MG PO; +LIPITOR80 MG PO; +Levaquin PO; +PULMICORT0.5 MG/21 UPD
[2017-07-13 13:30] LABS: BASOPHILS 0.6 % (0-2); EOSINOPHILS 1.5 % (0-7); HEMATOCRIT 37.6 % (36.0-48.0); HEMOGLOBIN 11.8 g/dL (12-16); IMMATURE GRANULOCYTES 0.2 % (0-5); LYMPHOCYTES 21.7 % (15-50); MCH 28.9 pg (26.0-34.0); MCHC 31.4 g/dL (31.0-37.0); MCV 91.9 fL (80.0-100.0); MEAN PLATELET VOLUME 11.4 fL (7.4-10.4); MONOCYTES 8.2 % (2-11); NEUTROPHILS 67.8 % (40-80); PLATELET COUNT 127 10x3/uL (130-400); RBC 4.09 10x6/uL (4.00-5.40); WBC 5.3 10x3/uL (4.8-10.8)
[2017-07-13 13:44] LABS: ALBUMIN 2.9 g/dL (3.4-5.0); ANION GAP 15.9 mmol/L (8-16); BILIRUBIN - TOTAL 0.29 mg/dL (0.2-1.3); CALCIUM 8.5 mg/dL (8.5-10.1); CARBON DIOXIDE 19.8 mmol/L (21.0-32.0); CREATININE - SERUM 1.4 mg/dL (0.6-1.3); POTASSIUM - SERUM 4.7 mmol/L (3.5-5.1); PROTEIN - SERUM 7.3 g/dL (6.4-8.2)
[2017-07-13 13:48] LABS: KETONE - SERUM NEGATIVE (NEGATIVE)
[2017-07-13 14:03] LABS: APPEARANCE HAZY (CLEAR); COLOR YELLOW (YELLOW); SPECIFIC GRAVITY 1.015 (1.005-1.020)
[2017-07-13 14:04] LABS: BILIRUBIN NEGATIVE (NEGATIVE); GLUCOSE 100 mg/dL (NEGATIVE); KETONE NEGATIVE (NEGATIVE); NITRITE NEGATIVE (NEGATIVE); PROTEIN 3+ mg/dL (NEGATIVE)
[2017-07-13 14:05] LABS: BACTERIA MODERATE /hpf (NONE SEEN); EPITHELIAL CELLS 0-5 /hpf (0-5); MUCUS <1+ /lpf (NONE SEEN); WHITE CELLS - URINE 25-50 /hpf (0-5)
[2017-07-13 14:07] LABS: MAGNESIUM - SERUM 1.9 mg/dL (1.8-2.4); PRO BNP 15416 pg/mL (0-125); THYROID STIMULATING HORMONE 7.66 uIU/mL (0.36-3.74)
== END 2017-07-13 15:28 | disposition home or self-care (01) ==
LOC: D.ER 12:48
PROVIDERS: Emergency Medicine
DX: R11.10 Vomiting, unspecified (principal); M54.9 Dorsalgia, unspecified; J44.9 Chronic obstructive pulmonary disease, unspecified; E11.9 Type 2 diabetes mellitus without complications; Z79.4 Long term (current) use of insulin; I12.9 Hypertensive chronic kidney disease with stage 1 through stage 4 chronic kidney disease, or unspecified chronic kidney disease; N18.9 Chronic kidney disease, unspecified

== ENCOUNTER 2017-07-28 10:03 | Inpatient (IN) | payer MEDICARE ==
[~2017-07-28] VITALS: Ht 157.5 cm; Wt 65.8 kg
--- NOTE | ~2017-07-28 | EC ---
PATIENT:HARINDER OBANDO DATE OF SERVICE: 07/28/17 SEX: F MEDICAL RECORD: [id number] DATE OF : 63 LOCATION:D.MS [place] AGE OF PATIENT: 51 ADMISSION DATE: 07/28/17 REFERRING PHYSICIAN: INTERPRETING PHYSICIAN: MACHO LOUISE MD ECHOCARDIOGRAM REPORT ECHO CHARGES 4 ECHO COMPLETE CLINICAL DIAGNOSIS: NON JAYS[place] NM ECHOCARDIOGRAPHIC MEASUREMENTS (adult normal given) AC root (d.<3.7cm) 2.9 cm LV Septum d (<1.2 cm> 1.3 cm Valve Excursion 1.4 cm LV Septum (systole) 1.4 cm Left Atria (s.<4.0cm> 4.2 cm LVPW d(<1.2cm) 1.4 cm RV (d.<2.3cm) 3.8 cm LVPW (sytole) 1.5 cm LV diastole(<5.6CM) 5.3 cm MV E-F(>70mm/sec) cm LV systole 4.3 cm LVOT Diameter cm MV exc.(>10mm) 1.2 cm Est.ejection fraction (50-75%) % Pericardial Effusion N DOPPLER: LVIT cm/sec A 66.0 cm/sec E 108 cm/sec LA cm/sec RVSP 44 mmHg LVOT 83 cm/sec AOP1/2T m/s Asc. Ao 115 cm/sec RVOT 45 cm/sec RA cm/sec PA 77 cm/sec AV Gradient Peak 5.33 mmHg AV Mean 2.45 mmHg AV Area 2.1 cm MV Gradient Peak 5.85 mmHg MV Mean 2.37 mmHg MV Area cm COMMENTS: It Program Manager: Mckenna DELEON Brass Molder Helper: 3 Dr. Bond TAPE# PACS DATE OF SERVICE: 08/04/2017 PROCEDURE: This is a transthoracic echocardiogram. FINDINGS: 1. The patient has evidence of left ventricular hypertrophy. Inflow characteristics are normal. 2. The overall ejection fraction is 35%. The patient has asynchronous wall motion abnormalities as well as global hypokinesis. 3. Left atrium is mildly dilated. ECHOCARDIOGRAM REPORT [id number] HARINDER OBANDO 4. The aortic valve is normal. 5. The mitral valve is shown to have moderate to severe centralized mitral regurgitation. 6. The right atrium is mildly dilated. 7. The right ventricle is mildly dilated. 8. The tricuspid valve has mild tricuspid regurgitation. RVSP is mildly elevated at 44 mmHg. CONCLUSION: The patient has evidence of systolic dysfunction, ejection fraction 35% with asynchronous wall motion abnormalities as well as mild to moderate pulmonary hypertension and dilatation of right-sided structures. TRANSINT:[id number] Voice Confirmation ID: [id number] DOCUMENT ID: [id number] MACHO LOUISE MD at 1214 CC: [id number] DICTATION DATE: 08/04/172117 SHIFT SUPERVISOR FILM PROCESSING: 08/05/17 0118 DIS IN 08/06/17 [facility] [address] [place] [address]
[2017-07-28 10:30] LABS: BASOPHILS 0.2 % (0-2); HEMATOCRIT 36.8 % (36.0-48.0); HEMOGLOBIN 11.6 g/dL (12-16); LYMPHOCYTES 28.6 % (15-50); MCH 28.9 pg (26.0-34.0); MCHC 31.5 g/dL (31.0-37.0); MCV 91.8 fL (80.0-100.0); MEAN PLATELET VOLUME 11.3 fL (7.4-10.4); NEUTROPHILS 58.2 % (40-80); PLATELET COUNT 103 10x3/uL (130-400); RBC 4.01 10x6/uL (4.00-5.40); RDW 15.8 % (11.5-14.5); WBC 4.2 10x3/uL (4.8-10.8)
[2017-07-28 10:45] LABS: ALBUMIN 2.7 g/dL (3.4-5.0); ALKALINE PHOSPHATASE 88 U/L (46-116); ALT (SGPT) 14 U/L (10-68); BILIRUBIN - TOTAL 0.35 mg/dL (0.2-1.3); CALC OSMOLALITY 271 mosm/kg (275-300); CALCIUM 8.5 mg/dL (8.5-10.1); CARBON DIOXIDE 20.1 mmol/L (21.0-32.0); CHLORIDE - SERUM 103 mmol/L (98-107); CREATININE - SERUM 1.5 mg/dL (0.6-1.3); GLUCOSE 145 mg/dL (74-106); POTASSIUM - SERUM 3.8 mmol/L (3.5-5.1); PROTEIN - SERUM 6.8 g/dL (6.4-8.2); SODIUM 132 mmol/L (136-145); UREA NITROGEN 24 mg/dL (7-18); eGFR NON AFRICAN AMERICAN 39 mL/min (90-120)
[2017-07-28 10:57] LABS: CHOLESTEROL, TOTAL 161 mg/dL (0-200); CKMB 3.3 U/L (0.0-3.6); CREATINE KINASE 45 UL (21-215); HDL CHOLESTEROL 23 mg/dL (32-96); LDL CHOLESTEROL 115 mg/dL (0-100); TRIGLYCERIDE 118 mg/dL (30-200); TROPONIN-I 0.041 ng/mL (0.000-0.060)
[2017-07-28 15:39] VITALS: BP 149/67; BMI 26.6
[2017-07-28 22:10] VITALS: BP 154/100
[2017-07-29 00:14] VITALS: BP 154/100
[2017-07-29 05:25] LABS: BASOPHILS 0.3 % (0-2); EOSINOPHILS 0 % (0-7); HEMATOCRIT 35.8 % (36.0-48.0); HEMOGLOBIN 11.2 g/dL (12-16); IMMATURE GRANULOCYTES 0.3 % (0-5); MCH 28.8 pg (26.0-34.0); MCHC 31.3 g/dL (31.0-37.0); MEAN PLATELET VOLUME 12.6 fL (7.4-10.4); MONOCYTES 6.7 % (2-11); NEUTROPHILS 71.7 % (40-80); PLATELET COUNT 100 10x3/uL (130-400); RBC 3.89 10x6/uL (4.00-5.40); RDW 15.8 % (11.5-14.5); WBC 3.4 10x3/uL (4.8-10.8)
[2017-07-29 05:57] LABS: ALBUMIN 2.4 g/dL (3.4-5.0); ANION GAP 13.8 mmol/L (8-16); BILIRUBIN - TOTAL 0.27 mg/dL (0.2-1.3); CALCIUM 8.3 mg/dL (8.5-10.1); CHOL - HDL RATIO 6.3 ratio (2.3-4.1); CREATININE - SERUM 1.6 mg/dL (0.6-1.3); LDL-HDL RATIO 4.7 ratio (1.5-3.5); POTASSIUM - SERUM 4.8 mmol/L (3.5-5.1); PROTEIN - SERUM 6.3 g/dL (6.4-8.2); THYROID STIMULATING HORMONE 2.28 uIU/mL (0.36-3.74)
[2017-07-29 06:33] VITALS: BP 132/81
[2017-07-29 08:54] VITALS: BP 112/75
[2017-07-29 12:31] VITALS: BP 113/69
[2017-07-29 15:50] VITALS: BMI 26.5
[2017-07-29 16:00] VITALS: BP 72/49
[2017-07-29 22:10] VITALS: BP 92/55
[2017-07-30 01:01] VITALS: BP 98/58
[2017-07-30 05:29] LABS: BASOPHILS 0.2 % (0-2); EOSINOPHILS 1.9 % (0-7); HEMATOCRIT 33.1 % (36.0-48.0); HEMOGLOBIN 10.1 g/dL (12-16); IMMATURE GRANULOCYTES 0.2 % (0-5); LYMPHOCYTES 43.1 % (15-50); MCH 28.5 pg (26.0-34.0); MCHC 30.5 g/dL (31.0-37.0); MCV 93.2 fL (80.0-100.0); MEAN PLATELET VOLUME 12.1 fL (7.4-10.4); MONOCYTES 6.7 % (2-11); NEUTROPHILS 47.9 % (40-80); RBC 3.55 10x6/uL (4.00-5.40); RDW 15.8 % (11.5-14.5)
[2017-07-30 05:38] LABS: PLATELET COUNT 102 10x3/uL (130-400); WBC 4.3 10x3/uL (4.8-10.8)
[2017-07-30 05:39] VITALS: BP 91/56
[2017-07-30 05:44] LABS: ALBUMIN 2.5 g/dL (3.4-5.0); ANION GAP 15.1 mmol/L (8-16); BILIRUBIN - TOTAL 0.3 mg/dL (0.2-1.3); CALCIUM 7.2 mg/dL (8.5-10.1); CARBON DIOXIDE 19.3 mmol/L (21.0-32.0); CREATININE - SERUM 1.8 mg/dL (0.6-1.3); MAGNESIUM - SERUM 2.2 mg/dL (1.8-2.4); PHOSPHOROUS 6.5 mg/dL (2.5-4.9); POTASSIUM - SERUM 4.4 mmol/L (3.5-5.1)
[2017-07-30 10:00] VITALS: BP 79/47
[2017-07-30 16:01] VITALS: BP 71/43
[2017-07-30 21:55] VITALS: BP 92/56
[2017-07-31 00:40] VITALS: BP 100/49
[2017-07-31 04:50] VITALS: BP 134/67
[2017-07-31 04:56] LABS: BASOPHILS 0.2 % (0-2); EOSINOPHILS 1.7 % (0-7); HEMATOCRIT 35.9 % (36.0-48.0); IMMATURE GRANULOCYTES 0.2 % (0-5); LYMPHOCYTES 23.8 % (15-50); MCH 28.6 pg (26.0-34.0); MCHC 30.6 g/dL (31.0-37.0); MCV 93.5 fL (80.0-100.0); MEAN PLATELET VOLUME 11.7 fL (7.4-10.4); MONOCYTES 5.8 % (2-11); NEUTROPHILS 68.3 % (40-80); PLATELET COUNT 99 10x3/uL (130-400); RBC 3.84 10x6/uL (4.00-5.40); RDW 15.6 % (11.5-14.5); WBC 5.2 10x3/uL (4.8-10.8)
[2017-07-31 05:30] LABS: ANION GAP 15.4 mmol/L (8-16); CALCIUM 7.9 mg/dL (8.5-10.1); CARBON DIOXIDE 19.4 mmol/L (21.0-32.0); MAGNESIUM - SERUM 2.1 mg/dL (1.8-2.4); POTASSIUM - SERUM 4.8 mmol/L (3.5-5.1)
[2017-07-31 05:32] LABS: CREATININE - SERUM 2.4 mg/dL (0.6-1.3); PHOSPHOROUS 8.9 mg/dL (2.5-4.9)
[2017-07-31 08:14] VITALS: BP 97/58
[2017-07-31 20:00] VITALS: BP 79/50
[2017-08-01 04:00] VITALS: BP 87/48
[2017-08-01 06:00] LABS: ANION GAP 16.3 mmol/L (8-16); CARBON DIOXIDE 17.6 mmol/L (21.0-32.0); CREATININE - SERUM 2.7 mg/dL (0.6-1.3); PHOSPHOROUS 8.3 mg/dL (2.5-4.9); POTASSIUM - SERUM 4.9 mmol/L (3.5-5.1)
[2017-08-01 08:15] VITALS: BP 93/50
[2017-08-01 11:59] VITALS: BP 95/52
[2017-08-01 15:43] VITALS: Ht 157.5 cm; Wt 65.8 kg
[2017-08-01 15:48] VITALS: BP 94/45
[2017-08-01 16:45] LABS: ERYTHROCYTE SEDIMENTATION RATE 4 mm/hr (0-30)
[2017-08-01 20:00] VITALS: BP 97/65
[2017-08-02 01:27] LABS: CREATININE - URINE 91.4 mg/dL (30-125); PRO/CRE RATIO URINE 1.1 mg/g; PROTEIN - URINE 96.1 mg/dL (0.0-11.9)
[2017-08-02 01:28] LABS: APPEARANCE CLEAR (CLEAR); BILIRUBIN NEGATIVE (NEGATIVE); COLOR YELLOW (YELLOW); GLUCOSE NEGATIVE (NEGATIVE); KETONE NEGATIVE (NEGATIVE); NITRITE NEGATIVE (NEGATIVE); PROTEIN 2+ mg/dL (NEGATIVE); SPECIFIC GRAVITY 1.015 (1.005-1.020); UROBILINOGEN NORMAL (NORMAL)
[2017-08-02 01:31] LABS: BACTERIA MODERATE /hpf (NONE SEEN); EPITHELIAL CELLS 0-5 /hpf (0-5); RED CELLS - URINE 0-5 /hpf (0-5); YEAST <1+ /hpf (NONE SEEN)
[2017-08-02 04:00] VITALS: BP 101/54
[2017-08-02 04:53] LABS: BASOPHILS 0.6 % (0-2); EOSINOPHILS 3.2 % (0-7); HEMATOCRIT 33.3 % (36.0-48.0); HEMOGLOBIN 10.4 g/dL (12-16); LYMPHOCYTES 27.5 % (15-50); MCH 28.3 pg (26.0-34.0); MCHC 31.2 g/dL (31.0-37.0); MEAN PLATELET VOLUME 12.5 fL (7.4-10.4); MONOCYTES 9.2 % (2-11); NEUTROPHILS 59.5 % (40-80); PLATELET COUNT 89 10x3/uL (130-400); RBC 3.67 10x6/uL (4.00-5.40)
[2017-08-02 04:56] LABS: MCV 90.7 fL (80.0-100.0); WBC 3.5 10x3/uL (4.8-10.8)
[2017-08-02 05:17] LABS: ANION GAP 15.7 mmol/L (8-16); CALCIUM 7.4 mg/dL (8.5-10.1); CREATININE - SERUM 2.7 mg/dL (0.6-1.3); MAGNESIUM - SERUM 1.8 mg/dL (1.8-2.4); PHOSPHOROUS 8.5 mg/dL (2.5-4.9); POTASSIUM - SERUM 4.7 mmol/L (3.5-5.1)
[2017-08-02 08:02] VITALS: BP 115/70
[2017-08-02 12:50] VITALS: BP 95/58
[2017-08-02 16:13] VITALS: BP 104/65
[2017-08-02 20:00] VITALS: BP 122/66; BP 95/52
[2017-08-03] VITALS: BP 103/56
[2017-08-03 05:59] LABS: BASOPHILS 0.3 % (0-2); EOSINOPHILS 3.2 % (0-7); HEMATOCRIT 32.8 % (36.0-48.0); HEMOGLOBIN 10.5 g/dL (12-16); LYMPHOCYTES 21.4 % (15-50); MCH 28.7 pg (26.0-34.0); MCV 89.6 fL (80.0-100.0); MEAN PLATELET VOLUME 12.2 fL (7.4-10.4); MONOCYTES 9.3 % (2-11); NEUTROPHILS 65.8 % (40-80); PLATELET COUNT 91 10x3/uL (130-400); RBC 3.66 10x6/uL (4.00-5.40); RDW 14.9 % (11.5-14.5); WBC 3.8 10x3/uL (4.8-10.8)
[2017-08-03 06:33] LABS: PLATELET ESTIMATE DECREASED
[2017-08-03 07:08] LABS: ANION GAP 16.5 mmol/L (8-16); CALCIUM 7.5 mg/dL (8.5-10.1); CARBON DIOXIDE 16.9 mmol/L (21.0-32.0); CREATININE - SERUM 2.4 mg/dL (0.6-1.3); POTASSIUM - SERUM 4.4 mmol/L (3.5-5.1)
[2017-08-03 07:58] VITALS: BP 129/68
[2017-08-03 09:18] LABS: SPE - ALBUMIN 2.6 g/dL (2.9-4.4); SPE - ALPHA-1 GLOBULIN 0.3 g/dL (0.0-0.4); SPE - ALPHA-2 GLOBULIN 0.6 g/dL (0.4-1.0); SPE - BETA GLOBULIN 0.8 g/dL (0.7-1.3); SPE - M-SPIKE Not Observed g/dL (Not Observed); SPE - TOTAL PROTEIN 5.3 g/dL (6.0-8.5)
[2017-08-03 12:23] VITALS: BP 94/62
[2017-08-03 15:55] VITALS: BP 111/60
[2017-08-03 20:00] VITALS: BP 106/60
[2017-08-04] VITALS: BP 90/49
[2017-08-04 04:00] VITALS: BP 134/59
[2017-08-04 05:39] LABS: BASOPHILS 0.3 % (0-2); EOSINOPHILS 4.1 % (0-7); HEMOGLOBIN 10.6 g/dL (12-16); LYMPHOCYTES 22.9 % (15-50); MCH 28.4 pg (26.0-34.0); MCHC 31.2 g/dL (31.0-37.0); MCV 91.2 fL (80.0-100.0); MEAN PLATELET VOLUME 12.1 fL (7.4-10.4); MONOCYTES 9.9 % (2-11); NEUTROPHILS 62.8 % (40-80); PLATELET COUNT 93 10x3/uL (130-400); RBC 3.73 10x6/uL (4.00-5.40); WBC 3.6 10x3/uL (4.8-10.8)
[2017-08-04 06:45] LABS: ANION GAP 17.2 mmol/L (8-16); CALCIUM 7.6 mg/dL (8.5-10.1); CARBON DIOXIDE 15.9 mmol/L (21.0-32.0); CREATININE - SERUM 2.2 mg/dL (0.6-1.3); MAGNESIUM - SERUM 1.9 mg/dL (1.8-2.4); PHOSPHOROUS 7.2 mg/dL (2.5-4.9); POTASSIUM - SERUM 4.1 mmol/L (3.5-5.1)
[2017-08-04 07:28] LABS: UPE RAND - ALBUMIN 47.8 % (()); UPE RAND - ALPHA 1 GLOBULIN 4.1 % (()); UPE RAND - ALPHA 2 GLOBULIN 10.4 % (()); UPE RAND - BETA GLOBULIN 20.3 % (()); UPE RAND - GAMMA GLOBULIN 17.5 % (())
[2017-08-04 09:13] VITALS: BP 126/58
[2017-08-04 12:29] VITALS: BP 96/52
[2017-08-04 12:42] LABS: CKMB 6.4 U/L (0.0-3.6); CREATINE KINASE 109 UL (21-215); PRO BNP 16847 pg/mL (0-125)
[2017-08-04 12:48] LABS: TROPONIN-I 0.206 ng/mL (0.000-0.060)
[2017-08-04 16:15] VITALS: BP 117/57
[2017-08-04 19:18] LABS: CREATINE KINASE 101 UL (21-215)
[2017-08-04 19:19] LABS: TROPONIN-I 0.191 ng/mL (0.000-0.060)
[2017-08-04 20:00] VITALS: BP 114/59
[2017-08-05] VITALS: BP 102/69
[2017-08-05 00:22] LABS: CKMB 4.8 U/L (0.0-3.6); CREATINE KINASE 86 UL (21-215)
[2017-08-05 00:24] LABS: TROPONIN-I 0.183 ng/mL (0.000-0.060)
[2017-08-05 04:00] VITALS: BP 109/71
[2017-08-05 08:07] VITALS: BP 126/68
[2017-08-05 09:50] LABS: CALCIUM 7.6 mg/dL (8.5-10.1); CARBON DIOXIDE 18.2 mmol/L (21.0-32.0); POTASSIUM - SERUM 4.2 mmol/L (3.5-5.1)
[2017-08-05 12:15] VITALS: BP 116/60
[2017-08-05 16:24] VITALS: BP 112/57
[2017-08-05 20:00] VITALS: BP 109/57
[2017-08-06] VITALS: BP 114/56
[2017-08-06 04:00] VITALS: BP 115/58
[2017-08-06 06:06] LABS: ANION GAP 11.3 mmol/L (8-16); CALCIUM 7.8 mg/dL (8.5-10.1); CARBON DIOXIDE 20.1 mmol/L (21.0-32.0); POTASSIUM - SERUM 4.4 mmol/L (3.5-5.1)
[2017-08-06 08:18] VITALS: BP 118/53
[2017-08-06 12:42] VITALS: BP 104/52
[2017-08-06] MEDS ORDERED: ROBITUSSIN DM 110 ML PO (14:02)
[2017-08-06] MEDS ORDERED: PEPCID20 MG PO (14:03)
== END 2017-08-06 16:52 | disposition home or self-care (01) | DRG 291 ==
LOC: D.ER 10:03 → D.EDHOLD 12:51 → D.MS 12:51
PROVIDERS: Emergency Medicine; Family Medicine; Internal Medicine Cardiovascular Disease; Internal Medicine Nephrology
DX: I11.0 Hypertensive heart disease with heart failure (principal); J18.9 Pneumonia, unspecified organism; J96.01 Acute respiratory failure with hypoxia; J44.0 Chronic obstructive pulmonary disease with (acute) lower respiratory infection; N17.9 Acute kidney failure, unspecified; N39.0 Urinary tract infection, site not specified; E87.1 Hypo-osmolality and hyponatremia; I50.23 Acute on chronic systolic (congestive) heart failure; I42.9 Cardiomyopathy, unspecified; I73.9 Peripheral vascular disease, unspecified; M19.90 Unspecified osteoarthritis, unspecified site; K21.9 Gastro-esophageal reflux disease without esophagitis; F41.9 Anxiety disorder, unspecified; R53.81 Other malaise; F32.9 Major depressive disorder, single episode, unspecified; E86.0 Dehydration; Z86.73 Personal history of transient ischemic attack (TIA), and cerebral infarction without residual deficits; E11.9 Type 2 diabetes mellitus without complications; D50.9 Iron deficiency anemia, unspecified

== ENCOUNTER 2017-08-14 18:57 | Inpatient (IN) | payer MEDICARE ==
[~2017-08-14] VITALS: Ht 157.5 cm; Wt 74.8 kg
--- NOTE | ~2017-08-14 | EC ---
PATIENT:HARINDER OBANDO DATE OF SERVICE: 08/15/17 SEX: F MEDICAL RECORD: [id number] DATE OF : 63 LOCATION:D.MS [place] AGE OF PATIENT: 52 ADMISSION DATE: 08/15/17 REFERRING PHYSICIAN: INTERPRETING PHYSICIAN: OSVALDO REYES MD ECHOCARDIOGRAM REPORT ECHO CHARGES 5 ECHO LIMITED 1 DOPPLER ECHO COLOR FLOW 2 DOPPLER ECHO PULSE CLINICAL DIAGNOSIS: SOB ECHOCARDIOGRAPHIC MEASUREMENTS (adult normal given) AC root (d.<3.7cm) 0 cm LV Septum d (<1.2 cm> 0 cm Valve Excursion 0 cm LV Septum (systole) 0 cm Left Atria (s.<4.0cm> 0 cm LVPW d(<1.2cm) 0 cm RV (d.<2.3cm) 0 cm LVPW (sytole) 0 cm LV diastole(<5.6CM) 0 cm MV E-F(>70mm/sec) 0 cm LV systole 0 cm LVOT Diameter 0 cm MV exc.(>10mm) 0 cm Est.ejection fraction (50-75%) 0 % Pericardial Effusion N DOPPLER: LVIT 0 cm/sec A 0 cm/sec E 0 cm/sec LA 0 cm/sec RVSP 27.0 mmHg LVOT 0 cm/sec AOP1/2T 0 m/s Asc. Ao 0 cm/sec RVOT 0 cm/sec RA 0 cm/sec PA 0 cm/sec AV Gradient Peak 0 mmHg AV Mean 0 mmHg AV Area 0 cm MV Gradient Peak 0 mmHg MV Mean 0 mmHg MV Area 0 cm COMMENTS: LIMITED STUDY (2-D,COLOR,DOPPLER) COMPLETE ECHO DONE ON 08/04/17 Grain Packer: Marcelle BOWDENOE Program Dir: 1 Dr. Reyes TAPE# PACS DATE OF SERVICE: 08/16/2017 PROCEDURE: Limited echocardiogram for ejection fraction. FINDINGS: Left ventricular chamber size is dilated. Left ventricular systolic function is markedly reduced, overall ejection fraction estimated 20%. TRANSINT:[id number] Voice Confirmation ID: [id number] DOCUMENT ID: [id number] ECHOCARDIOGRAM REPORT [id number] HARINDER OBANDO OSVALDO REYES MD at 1202 CC: [id number] DICTATION DATE: 08/16/17 1239 BIT SETTER: 08/16/17 1311 ADM IN [facility] [address] [place] [address]
[~2017-08-14 18:57] MED LIST changes: +ROBITUSSIN DM 110 ML PO
[2017-08-14 20:16] LABS: BASOPHILS 0.6 % (0-2); EOSINOPHILS 0.9 % (0-7); HEMATOCRIT 40.1 % (36.0-48.0); HEMOGLOBIN 12.4 g/dL (12-16); IMMATURE GRANULOCYTES 0.3 % (0-5); LYMPHOCYTES 20.4 % (15-50); MCH 28.9 pg (26.0-34.0); MCHC 30.9 g/dL (31.0-37.0); MCV 93.5 fL (80.0-100.0); MONOCYTES 7.5 % (2-11); NEUTROPHILS 70.3 % (40-80); PLATELET COUNT 136 10x3/uL (130-400); RBC 4.29 10x6/uL (4.00-5.40); RDW 16.4 % (11.5-14.5); WBC 6.5 10x3/uL (4.8-10.8)
[2017-08-14 20:24] LABS: APTT 33.2 SECONDS (22.8-39.4); INR 1.7 (0.85-1.17); PROTIME 19.5 SECONDS (11.6-15.0)
[2017-08-14 20:25] LABS: D-DIMER-QUANTITATIVE 3.88 ug/mLFEU (0.20-0.54)
[2017-08-14 20:29] LABS: ALBUMIN 2.3 g/dL (3.4-5.0); ALKALINE PHOSPHATASE 82 U/L (46-116); ALT (SGPT) 164 U/L (10-68); BILIRUBIN - TOTAL 0.37 mg/dL (0.2-1.3); CALC OSMOLALITY 286 mosm/kg (275-300); CALCIUM 8.4 mg/dL (8.5-10.1); CARBON DIOXIDE 18.2 mmol/L (21.0-32.0); CHLORIDE - SERUM 108 mmol/L (98-107); GLUCOSE 132 mg/dL (74-106); POTASSIUM - SERUM 4.8 mmol/L (3.5-5.1); PROTEIN - SERUM 6.6 g/dL (6.4-8.2); SODIUM 139 mmol/L (136-145); UREA NITROGEN 33 mg/dL (7-18); eGFR NON AFRICAN AMERICAN 28 mL/min (90-120)
[2017-08-14 20:44] LABS: CKMB 3.2 U/L (0.0-3.6); CREATINE KINASE 36 UL (21-215)
[2017-08-14 20:46] LABS: TROPONIN-I 0.207 ng/mL (0.000-0.060)
[2017-08-15 04:12] LABS: CKMB 2.8 U/L (0.0-3.6); CREATINE KINASE 27 UL (21-215)
[2017-08-15 04:19] LABS: TROPONIN-I 0.221 ng/mL (0.000-0.060)
[2017-08-15 09:54] LABS: CKMB 2.5 U/L (0.0-3.6); CREATINE KINASE 24 UL (21-215)
[2017-08-15 10:04] LABS: TROPONIN-I 0.259 ng/mL (0.000-0.060)
[2017-08-15 15:02] LABS: CKMB 2.2 U/L (0.0-3.6); CREATINE KINASE 54 UL (21-215)
[2017-08-15 15:08] LABS: TROPONIN-I 0.228 ng/mL (0.000-0.060)
[2017-08-15 17:40] VITALS: BP 140/62; BMI 89.7
[2017-08-15 22:18] VITALS: BP 103/60
[2017-08-16 04:29] VITALS: BP 90/31
[2017-08-16 08:43] LABS: BASOPHILS 0.9 % (0-2); EOSINOPHILS 5.7 % (0-7); HEMATOCRIT 35.3 % (36.0-48.0); HEMOGLOBIN 10.5 g/dL (12-16); IMMATURE GRANULOCYTES 0.2 % (0-5); LYMPHOCYTES 25.2 % (15-50); MCH 28.5 pg (26.0-34.0); MCHC 29.7 g/dL (31.0-37.0); MEAN PLATELET VOLUME 11.2 fL (7.4-10.4); MONOCYTES 8.5 % (2-11); NEUTROPHILS 59.5 % (40-80); RBC 3.68 10x6/uL (4.00-5.40); RDW 16.5 % (11.5-14.5)
[2017-08-16 09:03] LABS: MCV 95.9 fL (80.0-100.0); PLATELET COUNT 106 10x3/uL (130-400); WBC 4.4 10x3/uL (4.8-10.8)
[2017-08-16 09:13] LABS: ALBUMIN 1.8 g/dL (3.4-5.0); BILIRUBIN - TOTAL 0.24 mg/dL (0.2-1.3); CALCIUM 7.4 mg/dL (8.5-10.1); CARBON DIOXIDE 17.9 mmol/L (21.0-32.0); CREATININE - SERUM 1.8 mg/dL (0.6-1.3); POTASSIUM - SERUM 3.9 mmol/L (3.5-5.1); PROTEIN - SERUM 5.4 g/dL (6.4-8.2); VANCOMYCIN - TROUGH 8.5 ug/mL (10.0-20.0)
[2017-08-16 09:16] VITALS: BP 110/50
[2017-08-16 12:38] VITALS: BP 100/39
[2017-08-16 15:03] VITALS: Ht 157.5 cm; Wt 74.8 kg
[2017-08-16 16:10] VITALS: BP 123/65
[2017-08-16 21:09] VITALS: BP 93/58
[2017-08-17 01:38] VITALS: BP 104/52
[2017-08-17 04:42] VITALS: BP 108/54
[2017-08-17 09:37] VITALS: BP 120/53
[2017-08-17 17:05] VITALS: BP 103/52
[2017-08-17 21:39] VITALS: BP 105/57
[2017-08-18 05:34] VITALS: BP 100/52
[2017-08-18 07:55] VITALS: BP 113/63
[2017-08-18 11:49] VITALS: BP 114/54
[2017-08-18 15:37] VITALS: BP 122/64
[2017-08-18 22:49] VITALS: BP 125/64
[2017-08-19 02:50] VITALS: BP 122/60
[2017-08-19 05:22] LABS: BASOPHILS 0.6 % (0-2); HEMATOCRIT 30.1 % (36.0-48.0); HEMOGLOBIN 9.3 g/dL (12-16); IMMATURE GRANULOCYTES 0.3 % (0-5); LYMPHOCYTES 36.2 % (15-50); MCH 28.9 pg (26.0-34.0); MCHC 30.9 g/dL (31.0-37.0); MCV 93.5 fL (80.0-100.0); MEAN PLATELET VOLUME 11.3 fL (7.4-10.4); MONOCYTES 11.1 % (2-11); NEUTROPHILS 43.8 % (40-80); RBC 3.22 10x6/uL (4.00-5.40); RDW 16.6 % (11.5-14.5); WBC 3.2 10x3/uL (4.8-10.8)
[2017-08-19 05:23] LABS: PLATELET COUNT 82 10x3/uL (130-400)
[2017-08-19 05:25] LABS: PLATELET ESTIMATE DECREASED
[2017-08-19 05:54] VITALS: BP 115/56
[2017-08-19 06:13] LABS: ALBUMIN 1.6 g/dL (3.4-5.0); ANION GAP 17.8 mmol/L (8-16); BILIRUBIN - TOTAL 0.22 mg/dL (0.2-1.3); CARBON DIOXIDE 13.8 mmol/L (21.0-32.0); CREATININE - SERUM 1.7 mg/dL (0.6-1.3); POTASSIUM - SERUM 3.6 mmol/L (3.5-5.1); PROTEIN - SERUM 5.2 g/dL (6.4-8.2)
[2017-08-19 06:15] LABS: CALCIUM 6.9 mg/dL (8.5-10.1)
[2017-08-19 07:41] VITALS: BP 146/68
[2017-08-19 11:10] VITALS: BP 123/57
[2017-08-19 15:16] VITALS: BP 125/66
[2017-08-19 22:24] VITALS: BP 125/69
[2017-08-20 02:24] VITALS: BP 154/64
[2017-08-20 05:25] VITALS: BP 118/64
[2017-08-20 08:00] VITALS: BP 142/75
[2017-08-20 11:30] VITALS: BP 174/78
[2017-08-20 15:30] VITALS: BP 201/78
[2017-08-20 21:51] VITALS: BP 132/66
[2017-08-21 01:33] VITALS: BP 138/68
[2017-08-21 05:05] VITALS: BP 146/68
[2017-08-21 06:55] LABS: BASOPHILS 0.8 % (0-2); EOSINOPHILS 5.4 % (0-7); HEMATOCRIT 31.8 % (36.0-48.0); HEMOGLOBIN 9.7 g/dL (12-16); IMMATURE GRANULOCYTES 0.3 % (0-5); LYMPHOCYTES 33.5 % (15-50); MCH 28.4 pg (26.0-34.0); MCHC 30.5 g/dL (31.0-37.0); MEAN PLATELET VOLUME 11.9 fL (7.4-10.4); MONOCYTES 11.7 % (2-11); NEUTROPHILS 48.3 % (40-80); PLATELET COUNT 69 10x3/uL (130-400); RBC 3.42 10x6/uL (4.00-5.40); RDW 16.9 % (11.5-14.5); WBC 3.7 10x3/uL (4.8-10.8)
[2017-08-21 07:14] LABS: CALCIUM 7.4 mg/dL (8.5-10.1); CREATININE - SERUM 1.7 mg/dL (0.6-1.3)
[2017-08-21 09:38] VITALS: BP 135/65
[2017-08-21 15:04] VITALS: BP 132/66
[2017-08-21 18:59] VITALS: BP 130/67
[2017-08-21 23:59] VITALS: BP 135/63
[2017-08-22 04:17] VITALS: BP 148/68
[2017-08-22 07:54] LABS: BASOPHILS 1.2 % (0-2); EOSINOPHILS 5.2 % (0-7); HEMATOCRIT 34.1 % (36.0-48.0); HEMOGLOBIN 10.3 g/dL (12-16); LYMPHOCYTES 38.8 % (15-50); MCH 28.5 pg (26.0-34.0); MCHC 30.2 g/dL (31.0-37.0); MCV 94.5 fL (80.0-100.0); MEAN PLATELET VOLUME 11.7 fL (7.4-10.4); MONOCYTES 10.1 % (2-11); NEUTROPHILS 44.7 % (40-80); PLATELET COUNT 73 10x3/uL (130-400); RBC 3.61 10x6/uL (4.00-5.40); RDW 17.5 % (11.5-14.5); WBC 4.1 10x3/uL (4.8-10.8)
[2017-08-22 08:14] LABS: ANION GAP 13.2 mmol/L (8-16); CALCIUM 7.8 mg/dL (8.5-10.1); CARBON DIOXIDE 18.5 mmol/L (21.0-32.0); CREATININE - SERUM 1.7 mg/dL (0.6-1.3); MAGNESIUM - SERUM 1.3 mg/dL (1.8-2.4); PHOSPHOROUS 3.1 mg/dL (2.5-4.9)
[2017-08-22 08:15] LABS: POTASSIUM - SERUM 3.7 mmol/L (3.5-5.1)
[2017-08-22 08:40] VITALS: BP 171/72
[2017-08-22] MEDS ORDERED: COREG12.5 MG PO (09:30)
[2017-08-22] MEDS ORDERED: ENTRESTO 24 MG1 EACH PO (09:30)
[2017-08-22] MEDS ORDERED: SINGULAIR10 MG PO (09:31)
[2017-08-22] MEDS ORDERED: K-DUR20 MEQ PO (09:31)
[2017-08-22] MEDS ORDERED: LASIX40 MG PO (09:31)
== END 2017-08-22 11:34 | disposition home or self-care (01) | DRG 564 ==
LOC: D.ER 18:57 → D.EDHOLD 08-15 02:42 → D.MS 08-15 02:42
PROVIDERS: Family Medicine
DX: T87.44 Infection of amputation stump, left lower extremity (principal); I26.99 Other pulmonary embolism without acute cor pulmonale; I13.0 Hypertensive heart and chronic kidney disease with heart failure and stage 1 through stage 4 chronic kidney disease, or unspecified chronic kidney disease; I50.22 Chronic systolic (congestive) heart failure; I42.9 Cardiomyopathy, unspecified; L03.116 Cellulitis of left lower limb; N17.9 Acute kidney failure, unspecified; N18.9 Chronic kidney disease, unspecified; E11.22 Type 2 diabetes mellitus with diabetic chronic kidney disease; J44.9 Chronic obstructive pulmonary disease, unspecified

== ENCOUNTER 2017-08-30 10:15 | Inpatient (IN) | payer MEDICARE ==
[~2017-08-30] VITALS: Ht 157.5 cm; Wt 76.2 kg
[2017-08-30] VITALS (48 sets, daily range): BP systolic 94–138; BP diastolic 39–95
--- NOTE | ~2017-08-30 | HP ---
PATIENT: HARINDER AVENDANO MEDICAL RECORD: [id number] ACCOUNT: [id number] LOCATION:[facility] D.2125 : 63 ADMISSION DATE: 08/30/17 HISTORY AND PHYSICAL EXAMINATION DIAGNOSES: 1. Coronary artery disease. 2. Peripheral vascular disease. 3. Cardiomyopathy. 4. Congestive heart failure, chronic systolic dysfunction. 5. Chronic obstructive pulmonary disease. 6. Smoking history. 7. Hypotension. HISTORY OF PRESENT ILLNESS: Ms. Avendano presents with decreased consciousness, decreased sensorium, found to have heart rates in the 20s and 30s, and complete heart block. She has a history of severe cardiomyopathy, ejection fraction 20% or less. She has history of coronary artery disease, PTCA stent, left anterior descending and circumflex in May with total occlusion of her RCA. She was placed on Entresto, carvedilol, Lipitor, aspirin, Plavix. She supposedly has a recent hospitalization for deep vein thrombosis as well. It is unknown if she is on any other anticoagulant, the person with her does not know for sure and she cannot give a good history. PHYSICAL EXAMINATION: GENERAL APPEARANCE: Well-nourished, well-developed, appears stated age. Level of distress, comfortable. PSYCHIATRIC: Mental status, alert, normal affect. Orientation, oriented to time, place and person. EYES: Lids and conjunctiva, noninjected. No discharge, no pallor. ENT: Lips, teeth, gums, normal dentition. Oropharynx, no cyanosis, no pallor. NECK: Carotid arteries, bilateral normal upstroke, no bruits, no thrills. JUGULAR VEINS: No jugular venous pressure or distention. CERVICAL LYMPH NODES: Nontender, nonenlarged. THYROID: Not enlarged. Nontender. No nodules. LUNGS: Respiratory effort, unlabored. CHEST: Normal curvature. No thoracic deformity. No chest wall tenderness. Percussion, resonant. Auscultation, clear. No wheezes, no rales, no rhonchi. CARDIOVASCULAR: Heart rate is 30, bradycardic. Her systolic blood pressure is in the 80s. EXTREMITIES: No cyanosis, no edema. Peripheral pulses, full and equal in all extremities, except as noted. No bruits appreciated. ABDOMEN: Soft, nondistended. Normal aorta. No bruit. Nontender. No masses. Liver, nontender, no hepatomegaly. Spleen, nontender, no splenomegaly. MUSCULOSKELETAL: No joint tenderness. No joint swelling. No erythema. NEUROLOGICAL: Normal gait, normal strength, normal tone. SKIN: Warm and dry. OVERALL IMPRESSION: Severe bradycardia. At this time, we will proceed with a temporary pacemaker placement. She will need cardiac catheterization in her near future, possibly need permanent pacemaker as well. TRANSINT:[id number] Voice Confirmation ID: [id number] DOCUMENT ID: [id number] HISTORY AND PHYSICAL [id number] HARINDER AVENDANO JEFFREY MD at 1056 CC: [id number] DICTATION DATE: 08/30/17 1156 BLOOD BANK BOOKING CLERK: 08/30/17 1218 DIS IN 09/02/17 [place] [id number] [place] [address]
--- NOTE | ~2017-08-30 | OP ---
PATIENT NAME: HARINDER OBANDO MEDICAL RECORD: [id number] :63 LOCATION:D. D.2126 ADMISSION DATE:08/30/17 SURGEON: JOHN MONTELONGO MD DATE OF OPERATION: 08/31/2017 SURGEON: John Montelongo MD PONDMAN: Rizwan ALAS. PROCEDURE PERFORMED: Insertion of dual chamber permanent pacemaker via left subclavian vein with single stick technique. PREOPERATIVE DIAGNOSIS: Complete heart block with temporary pacemaker wire in place. POSTOPERATIVE DIAGNOSES: Complete heart block with temporary pacemaker wire in place plus cardiomyopathy. ANESTHESIA: Monitored anesthesia care and 15 cc of 1% plain Xylocaine local. COMPLICATIONS: None. SPECIMENS: None. BLOOD LOSS: Minimal. CONDITION: Stable. DISPOSITION: CV ICU. FINDINGS: Good atrial and ventricular pacing thresholds and the temporary wire removed under fluoroscopy without problem. No evidence of pneumothorax. INDICATIONS: The patient with complete heart block and cardiogenic shock, admitted and resuscitated. Temporary wire placed by Dr. Reyes in the patient for permanent pacemaker insertion, the patient has history of severe peripheral vascular disease and coronary artery disease with ischemic cardiomyopathy. DESCRIPTION OF PROCEDURE: The patient was brought to the operating suite. Monitored anesthesia care was given and the patient was prepped and draped. A 1% Xylocaine was used to anesthetize an area below the left clavicle. Incision was made and subcutaneous pocket was created. The left subclavian vein was cannulated and a 9-Israeli sheath was inserted over a guidewire. Then, the ventricular lead was inserted and a karla wire technique was used and then a smaller sheath, so there was only one stick in the subclavian. The ventricular lead was placed to the ventricular apex and screwed in place, appropriate pacing thresholds and the patient was maintained paced. With the ventricular lead, the atrial lead was then placed temporarily. Ventricular pacing was suspended and appropriate sensing and pacing thresholds of the atrial lead were noted. Then, ventricular pacing was resumed. Suture sleeves were used to secure the leads into the subcutaneous tissue and the fluoroscopy confirmed good positioning. Temporary pacing was suspended from the ventricular lead and was connected to the pacemaker generator with appropriate pacing. The [place] device was used to interrogate and was noted to have appropriate pacing and sensing thresholds in the atrial and ventricular leads. The pacemaker was then placed within the OPERATIVE REPORT [id number] HARINDER OBANDO pocket, sutured in place. Thorough irrigation was undertaken. It was closed in 2 layers including Dermabond on the skin. The patient has a sling placed in the left arm and was taken to CV ICU. TRANSINT:[id number] Voice Confirmation ID: [id number] DOCUMENT ID: [id number] JOHN MONTELONGO MD at 1416 CC: OSVALDO REYES [id number] DICTATION DATE: 08/31/17 1013 SOFTWARE VERIFICATION ENGINEER: 08/31/17 1035 DIS IN 09/02/17 [facility] [address] [place] [address]
--- NOTE | ~2017-08-30 | OP ---
PATIENT NAME: HARINDER AVENDANO MEDICAL RECORD: [id number] :63 LOCATION:D.M2 D.2126 ADMISSION DATE:08/30/17 SURGEON: OSVALDO QUINTANA MD DATE OF OPERATION: 08/30/2017 PROCEDURE: Temporary pacemaker placement. DESCRIPTION OF PROCEDURE: Ms. Avendano presents with severe symptomatic bradycardia. The right femoral area was prepped and draped in normal sterile fashion. Right femoral vein cannulated via modified Seldinger technique with placement of 6-[place] sheath. Temporary pacemaker was advanced into the RV apex. Pacing was successfully undertaken via temporary pacemaker. We attempted cardiac catheterization. There are stents in both right and left legs. We cannulated the vessel below the stented area. There was no flow in either leg that suggest both legs are possibly totally occluded. We could not find the radial artery to cannulate this. We will bring her back in the near future and plan for brachial approach. TRANSINT:[id number] Voice Confirmation ID: [id number] DOCUMENT ID: [id number] OSVALDO QUINTANA MD at 1056 CC: [id number] DICTATION DATE: 08/30/17 1154 MEDICAL ADVISOR: 08/30/17 1208 DIS IN 09/02/17 [place] [id number] [place] [address]
--- NOTE | ~2017-08-30 | HEMODYNAMI ---
PATIENT:HARINDER OBANDO MEDICAL RECORD: [id number] : 63 [facility] [id number] ADMISSION DATE: 08/30/17 Generatedon:08/30/201712:05 Patient name: HARINDER OBANDO Patient #: [id number] SSN: D OB: 1965 Date of study: 08/30/2017 Page: Of Hemodynamic Procedure Report Patient Data Patient Demographics Procedure consent was obtained First Name: HARINDER Gender: Female Last Name: GISELLA : 1965 [facility] Initial: L Age: 52 year(s) Patient #: [id number] Race: Unknown Additional ID: [id number] Contact details Address: [address] [place] [address] State: [place] City: [facility] Zip code: [address] Past Medical History Allergies: No known allergies Admission Admission Data Admission Date: 08/30/2017 Admission Time: 11:56 Room #: [facility] Lab Results Lab Result Date: 08/30/2017 Lab Result Time: 0:00 Biochemistry Name Units Result Min Max BUN mg/dl 20 --(----)*- 7 18 Creatinine mg/dl 2 --(----)-* 0.6 1.3 CBC Name Units Result Min Max Hemoglobin g/dl 11.1 *-(----)-- 13.5 17.5 Procedure Procedure Types Cath Procedure Diagnostic Procedure Temporary Pacemaker Procedure Description Procedure Date Procedure Date: 08/30/2017 Procedure Start Time: 11:21 Procedure End Time: 12:04 Procedure Staff Name Function Artemio Reyes MD Performing Physician Marlon Hernandez RT Monitor Jaquelin Garcia RN Nurse Karey Cole RT Scrub Procedure Data Cath Procedure Fluoroscopy Diagnostic fluoroscopy Total fluoroscopy Time: 4.4 time: 4.4 min min Diagnostic fluoroscopy Total fluoroscopy dose: 78 dose: 78 mGy mGy Contrast Material Contrast Material Type Amount (ml) Isovue 300 0 Entry Location Entry Primary Successful Side Size Upsize Upsize Entry Closure Succes sful Closure Location (Fr) 1 (Fr) 2 (Fr) Remarks Device Remarks Femoral Right 6 Fr vein Short Estimated blood loss: 10 ml Procedure Complications No complications Procedure Medications Medication Administration Route Dosage Oxygen NC 2 l/min Lidocaine 2% added to field 20 Heparin Flush Bag added to field 2 bags (1000units/500ml NS) 0.9% NaCl I.V. 100 ml/hr Fentanyl I.V. 50 mcg Versed 1 mg Dopamine I.V. drip 10 mcg/kg/min (400mg/250ml D5W) Lidocaine 2% added to field 20 Hemodynamics Rest Pre Cath Intra NCS Post Cath Vital Signs Time Heart Resp SPO2 etCO2 NIBP (mmHg) Rhythm Pain Sedation Rate (ipm) (%) (mmHg) Status Level (bpm) 11:18:44 24 85 0 Time Paced 0 (11) 10(A) Exceeded , No pain 11:19:21 62 29 92 0 Aborted Paced 0 (11) 10(A) , No pain 11:19:41 34 93 0 Aborted Paced 0 (11) 10(A) , No pain 11:20:51 26 92 0 128/66(104) Paced 0 (11) 10(A) , No pain 11:25:07 69 25 92 0 128/66(98) Paced 0 (11) 10(A) , No pain 11:29:21 68 24 92 0 106/73(93) Paced 0 (11) 10(A) , No pain 11:33:31 80 18 90 0 102/64(83) Paced 0 (11) 10(A) , No pain 11:37:41 80 20 93 0 111/62(83) Paced 0 (11) 10(A) , No pain 11:41:51 80 18 92 0 115/64(82) Paced 0 (11) 10(A) , No pain 11:46:05 80 14 92 0 122/61(98) Paced 0 (11) 10(A) , No pain 11:50:15 80 14 92 0 111/66(96) Paced 0 (11) 10(A) , No pain 11:54:27 20 14 0 118/67(92) Paced 0 (11) 10(A) , No pain 11:58:43 18 14 0 121/62(103) Paced 0 (11) 10(A) , No pain 12:03:11 11 13 0 125/40(99) Paced 0 (11) 10(A) , No pain Medications Time Medication Route Dose Verified Delivered Reason Notes Effectiveness by by 11:15:17 Dopamine I.V. 10 Artemio Hammer For (400mg/250ml drip mcg/kg/min Amy Garcia RN hypotension D5W) 11:17:32 Oxygen NC 2 l/min Artemio Hammer for local Amy Garcia RN anesthetic 11:17:46 Lidocaine 2% added 20ml vial Artemio Ulloa for local to Amy Reyes MD anesthetic field 11:17:54 Heparin Flush added 2 bags Artemio Ulloa used for Bag to Amy Reyes MD procedure (1000units/500ml field NS) 11:18:03 0.9% NaCl I.V. 100 ml/hr Artemio Hammer Per Amy Garcia RN physician 11:24:37 Fentanyl I.V. 50 mcg Artemio Hammer for Amy Garcia RN sedation 11:30:03 Versed 1 mg Artemio Garcia RN 11:50:37 Lidocaine 2% added 20ml vial Artemio Hammer for local for to Amy Garcia RN anesthetic suture field placement Procedure Log Time Note 11:00:21 Signed procedure consent form obtained from patient. 11:00:25 Jaquelin Garcia RN sent for patient. Start room use. 11:00:26 Time tracking: Regular hours 11:00:30 Plan of Care:Hemodynamics will remain stable., Cardiac rhythm will remain stable., Comfort level will be maintained., Respiratory function will remain adequate., Patient/ family verbilizes understanding of procedure., Procedure tolerated without complication., Recovers from procedure without complications.. 11:00:37 H&P Date Dictated: 08/30/2017 ER History on chart.. 11:01:33 Lab Result : BUN 20 mg/dl 11:01:33 Lab Result : Hemoglobin 11.1 g/dl 11:01:33 Lab Result : Creatinine 2 mg/dl 11:10:47 Patient received from ED to CCL 3 Alert and oriented. Tansferred to table in Supine position. 11:10:48 Warm blankets applied, and samantha hugger turned on for patient comfort. 11:10:48 Correct patient and procedure confirmed by team. 11:10:49 ECG and BP/O2 sat monitors applied to patient. 11:14:08 Full Disclosure recording started 11:14:35 patient arrived on external pacemaker 11:15:17 Dopamine (400mg/250ml D5W) 10 mcg/kg/min I.V. drip was administered by Jaquelin Garcia RN; For hypotension; 11:15:32 Vital chart was started 11:15:39 Pre-procedure instructions explained to patient. 11:15:39 Pre-op teaching completed and patient verbalized understanding. 11:15:41 Family in waiting room. 11:16:04 Pre procedure: right dorsailis pedis pulse 2+ Normal; easily identifiable; not easily obliterated 11:16:23 IV patent on arrival in right forearm with 0.9% NaCl at [facility]. 11:16:33 Right groin area was prepped with chlora-prep and draped in sterile fashion 11:16:34 Alarms reviewed by R. N. 11:16:34 Sharps counted by scrub and verified by R.N. 11:16:43 Patient allergic to No known allergies 11:16:46 Is patient on blood thinner?Yes 11:16:49 ACC The patient was administered the following blood thiners within the last 24 hours: ACCPlavix 11:16:50 Patient diabetic? Yes. 11:16:51 If diabetic: On Metformin? Yes 11:16:53 If on Metformin: Last Dose? 08/29/2017 11:16:56 Previous problem with sedation/anesthesia? No ? 11:16:57 Snore? No 11:16:57 Sleep apnea? No 11:16:58 Deviated septum? No 11:16:59 Opens mouth fully? Yes 11:17:00 Sticks out tongue? Yes 11:17:03 Airway obstruction? Yes COPD 11:17:06 Dentures? No ? 11:17:14 Use device set Femoral Dx 11:17:15 ACIST Syringe (56036) opened to sterile field. 11:17:16 Bag Decanter () opened to sterile field. 11:17:18 Medline Cath Pack ([id number]) opened to sterile field. 11:17:21 ACIST Hand Control (69031) opened to sterile field. 11:17:21 ACIST Manifold (18275) opened to sterile field. 11:17:24 Tegaderm 4 x 4 (1626W) opened to sterile field. 11:17:24 PERCUTANEOUS ENTRY 19GA needle opened to sterile field. 11:17:32 Oxygen 2 l/min NC was administered by Jaquelin Garcia RN; for local anesthetic; 11:17:46 Lidocaine 2% 20ml vial added to field was administered by Artemio Reyes MD; for local anesthetic; 11:17:54 Heparin Flush Bag (1000units/500ml NS) 2 bags added to field was administered by Artemio Reyes MD; used for procedure; 11:17:57 Rhythm: paced 11:18:03 0.9% NaCl 100 ml/hr I.V. was administered by Jaquelin Garcia RN; Per physician; 11:18:19 SHEATH 6FR [place] (SCU791) opened to sterile field. 11:18:29 Use device set Temporary Pacemaker 11:18:31 5Fr J Tip Temporary Pacing Catheter ([id number]) opened to sterile field. 11:18:34 2-0 Silk 685H opened to sterile field. 11:18:51 Final Timeout: patient, procedure, and site verified with staff and physician. All members of the team are in agreement. 11:18:54 Right groin site verified by team. 11:18:56 Physical assessment completed. ASA score P 4 - A patient with severe systemic disease that is a constant threat to life as per Artemio Reyes MD. 11:18:58 Sedation plan: IV Moderate Sedation Medication:Versed, Fentanyl 11:21:15 Local anesthetic to right femoral artery with Lidocaine 2% by Artemio Reyes MD.INITIAL ACCESS ONLY 11:24:32 A 6 Fr Short sheath was inserted into the Right Femoral vein 11:24:37 Fentanyl 50 mcg I.V. was administered by Jaquelin Garcia RN; for sedation; 11:25:10 Temporary pacer inserted 11:28:05 Temporary pacer turned on with the following settings: Rate 80, MA 5, Mode: Asynchronous. 11:30:03 Versed 1 mg was administered by Jaquelin Garcia RN; ; 11:33:40 Unable to gain right femoral arterial access. Radial prepped and draped. 11:33:51 Local anesthetic to right radial artery with Lidocaine 2% by Artemio Reyes MD.ADDITIONAL ACCESS 11:43:24 Unable to gain right radial access. Left groin prepped and draped. 11:43:48 Local anesthetic to left femerol artery with Lidocaine 2% by Artemio Reyes MD.ADDITIONAL ACCESS 11:46:26 Unable to gain left femoral arterial acces. 11:46:59 Physician has opted to postpone heart cath until after permanent pacemaker is placed. 11:50:37 Lidocaine 2% 20ml vial added to field was administered by Jaquelin Garcia RN; for local anesthetic; for suture placement 11:50:38 Procedure ended.(Physican Out) 12:00:00 Fluoroscopy time 04.40 minutes. 12:00:03 Fluoroscopy dose: 78 mGy 12:00:03 Flurop Dose total: 78 12:00:07 Contrast amount:Isovue 300 0ml. 12:00:08 Sharps counted by scrub and verified by R.N. 12:00:15 Insertion/operative site no bleeding no hematoma. 12:00:42 Temp Pacer and RFV Sheath was sutured in with 2-0 Silk.. 12:00:55 Post-procedure physical assessment completed. ASA score P 4 - A patient with severe systemic disease that is a constant threat to life as per Artemio Reyes MD. 12:00:58 Post procedure rhythm: paced 12:01:01 Estimated blood loss: 10 ml 12:01:44 Post procedure instruction explained to patient.Patient verbalizes understanding. 12:01:44 Patient needs reinforcement of post procedure teaching. 12:01:53 Procedure Complication : No complications 12:03:54 Procedure and supply charges have been captured, reviewed, submitted and are correct. 12:03:55 Vital chart was stopped 12:03:55 See physician's report for complete and final results. 12:03:57 Report given to CVICU. 12:04:00 Patient transfered to CVICU with Bed. 12:04:01 Procedure ended. 12:04:01 Full Disclosure recording stopped 12:04:06 End room use (Document Last) Device Usage Item Name Manufacture Quantity Catalog Hospital Part Current Minimal Lot# / Number Charge Number Stock Stock Serial# Code ACIST Acist 1 33073 829113 525223 927498 20 Syringe [employer] (65039) Systems Inc Bag Decanter Microtek 1 955706 38159 173066 5 () Medical Inc. Medline Cath Cardinal 1 [id number] 183576 73305 437183 5 Peatix ([id number]) ACIST Hand Acist 1 06169 831078 651444 896232 5 Control Medical (46082) Systems Inc ACIST Acist 1 40787 786987 140103 001906 5 Manifold Medical (84836) Systems Inc Tegaderm 4 x 3M 1 1626W 646800 486515 340151 5 4 (1626W) PERCUTANEOUS Cook Medical 1 F25906 874232 880464 5 ENTRY 19GA needle SHEATH 6FR Terumo 1 [id number] 186671 724603 291468 40 [place] (RSX846) 5Fr J Tip Cruz 1 [id number] 024654 97326 984840 2 Temporary Lifesciences Pacing Catheter ([id number]) 2-0 Silk Ethicon 1 685H 852421 82986 979135 5 685H Signature Audit [place] Stage Time Signature Unsigned Intra-Procedure 08/30/2017 Marlon Hernandez 12:05:00 PM RT(R) Signatures Monitor : Marlon Hernandez RT Signature : Date : Time : [place] [id number] [place] [id number]
--- NOTE | ~2017-08-30 | DS ---
PATIENT:HARINDER AVENDANO :63 MEDICAL RECORD: [id number] DISCHARGE SUMMARY ADMISSION DATE: 08/30/17 DISCHARGE DATE: 09/02/17 DISCHARGE DIAGNOSES: 1. Symptomatic bradycardia. 2. Status post pacemaker this admission. HOSPITAL COURSE: Ms. Avendano presents with symptomatic bradycardia. Had temporary pacemaker placed followed by permanent pacemaker, had symptomatology resolved. Will follow up with [facility] in 1 month. TRANSINT:[id number] Voice Confirmation ID: [id number] DOCUMENT ID: [id number] OSVALDO QUINTANA MD at 1849 CC: [id number] DICTATION DATE: 10/13/17 1230 GARNETT ROOM WORKER: 10/14/17 0957 DIS IN 09/02/17 [place] [id number] [place] [address]
[2017-08-30 10:30] LABS: BASOPHILS 1.3 % (0-2); EOSINOPHILS 2.1 % (0-7); HEMATOCRIT 36.2 % (36.0-48.0); HEMOGLOBIN 11.1 g/dL (12-16); IMMATURE GRANULOCYTES 0.2 % (0-5); LYMPHOCYTES 35.7 % (15-50); MCHC 30.7 g/dL (31.0-37.0); MCV 94.5 fL (80.0-100.0); MONOCYTES 10.7 % (2-11); RBC 3.83 10x6/uL (4.00-5.40); RDW 18.5 % (11.5-14.5); WBC 4.8 10x3/uL (4.8-10.8)
[2017-08-30 10:38] LABS: PLATELET COUNT 115 10x3/uL (130-400)
[2017-08-30 10:48] LABS: ALBUMIN 2.1 g/dL (3.4-5.0); ANION GAP 17.8 mmol/L (8-16); BILIRUBIN - TOTAL 0.3 mg/dL (0.2-1.3); CALCIUM 7.7 mg/dL (8.5-10.1); POTASSIUM - SERUM 3.8 mmol/L (3.5-5.1); PROTEIN - SERUM 6.2 g/dL (6.4-8.2)
[2017-08-30 17:02] LABS: APTT 34.5 SECONDS (22.8-39.4); INR 1.54 (0.85-1.17)
[2017-08-30 17:03] LABS: HEMATOCRIT 30.9 % (36.0-48.0); HEMOGLOBIN 9.6 g/dL (12-16); MCH 28.7 pg (26.0-34.0); MCHC 31.1 g/dL (31.0-37.0); MEAN PLATELET VOLUME 11.6 fL (7.4-10.4); RBC 3.34 10x6/uL (4.00-5.40); RDW 18.4 % (11.5-14.5); WBC 3.7 10x3/uL (4.8-10.8)
[2017-08-30 17:04] LABS: MCV 92.5 fL (80.0-100.0)
[2017-08-30 17:18] LABS: CREATININE - SERUM 1.6 mg/dL (0.6-1.3)
[2017-08-30 17:19] LABS: POTASSIUM - SERUM 3.2 mmol/L (3.5-5.1)
[2017-08-30 17:23] LABS: ANION GAP 13.1 mmol/L (8-16); CARBON DIOXIDE 26.1 mmol/L (21.0-32.0)
[2017-08-30 17:24] LABS: CALCIUM 6.5 mg/dL (8.5-10.1)
[2017-08-30] MEDS ORDERED: ROBITUSSIN DM 110 ML PO (18:26)
[2017-08-30] MEDS ORDERED: GLUCOPHAGE500 MG PO (18:30)
[2017-08-30] MEDS ORDERED: PLAVIX75 MG PO (18:30)
[2017-08-31] VITALS (27 sets, daily range): BP systolic 91–125; BP diastolic 47–97; Ht 157.5 cm; Wt 76.2 kg
[2017-08-31 04:57] LABS: HEMATOCRIT 30.4 % (36.0-48.0); HEMOGLOBIN 9.5 g/dL (12-16); MCH 29.1 pg (26.0-34.0); MCHC 31.3 g/dL (31.0-37.0); MEAN PLATELET VOLUME 11.5 fL (7.4-10.4); RBC 3.27 10x6/uL (4.00-5.40); RDW 18.8 % (11.5-14.5)
[2017-08-31 05:05] LABS: WBC 4.9 10x3/uL (4.8-10.8)
[2017-08-31 05:11] LABS: APPEARANCE HAZY (CLEAR); COLOR YELLOW (YELLOW)
[2017-08-31 05:12] LABS: BILIRUBIN NEGATIVE (NEGATIVE); GLUCOSE NEGATIVE (NEGATIVE); KETONE NEGATIVE (NEGATIVE); NITRITE NEGATIVE (NEGATIVE); PROTEIN 2+ mg/dL (NEGATIVE); UROBILINOGEN NORMAL (NORMAL)
[2017-08-31 05:20] LABS: ALBUMIN 1.7 g/dL (3.4-5.0); ANION GAP 15.8 mmol/L (8-16); BILIRUBIN - TOTAL 0.28 mg/dL (0.2-1.3); CARBON DIOXIDE 21.7 mmol/L (21.0-32.0); CREATININE - SERUM 1.9 mg/dL (0.6-1.3); POTASSIUM - SERUM 3.5 mmol/L (3.5-5.1)
[2017-08-31 05:21] LABS: CALCIUM 6.8 mg/dL (8.5-10.1)
[2017-08-31 05:37] LABS: AMORPHOUS SEDIMENT >1+ /lpf (NONE SEEN); BACTERIA MODERATE /hpf (NONE SEEN); EPITHELIAL CELLS 0-5 /hpf (0-5); GRANULAR CAST RARE /lpf (NONE SEEN); RED CELLS - URINE 0-5 /hpf (0-5); WHITE CELLS - URINE 0-5 /hpf (0-5); YEAST >1+ /hpf (NONE SEEN)
[2017-08-31] MEDS ORDERED: KLOR-CON M2020 MEQ PO (15:49)
[2017-08-31] MEDS ORDERED: ENTRESTO 24 MG1 EACH PO (15:50)
[2017-08-31] MEDS ORDERED: SINGULAIR10 MG PO (15:52)
[2017-09-01] VITALS: BP 128/66
[2017-09-01 04:00] VITALS: BP 115/643
[2017-09-01 11:33] VITALS: BP 117/80
[2017-09-01 16:36] VITALS: BP 105/60
[2017-09-01 21:05] VITALS: BP 115/63
[2017-09-02 01:47] VITALS: BP 114/71
[2017-09-02 05:20] VITALS: BP 118/82
[2017-09-02 07:58] VITALS: BP 109/68
[2017-09-02] MEDS ORDERED: BETAPACE 120 M120 MG PO (11:01)
== END 2017-09-02 13:12 | disposition home or self-care (01) | DRG 243 ==
LOC: D.ER 10:15 → D.M2 11:56 → D.EDHOLD 11:56 → D.CVICU 11:56 → D.M2 08-31 14:02
PROVIDERS: Emergency Medicine; Internal Medicine Interventional Cardiology; Thoracic Surgery (Cardiothoracic Vascular Surgery)
PROC: 02HV33Z Insertion of Infusion Device into Superior Vena Cava, Percutaneous Approach (ICD-10-PCS; 2017-08-30)
PROC: B548ZZA Ultrasonography of Superior Vena Cava, Guidance (ICD-10-PCS; 2017-08-30)
PROC: 5A1223Z Performance of Cardiac Pacing, Continuous (ICD-10-PCS; principal; 2017-08-30 11:00)
PROC: 0JH606Z Insertion of Pacemaker, Dual Chamber into Chest Subcutaneous Tissue and Fascia, Open Approach (ICD-10-PCS; 2017-08-31)
PROC: 02H63JZ Insertion of Pacemaker Lead into Right Atrium, Percutaneous Approach (ICD-10-PCS; 2017-08-31)
PROC: 02HK3JZ Insertion of Pacemaker Lead into Right Ventricle, Percutaneous Approach (ICD-10-PCS; 2017-08-31)
DX: I44.2 Atrioventricular block, complete (principal); I42.9 Cardiomyopathy, unspecified; I50.22 Chronic systolic (congestive) heart failure; I25.10 Atherosclerotic heart disease of native coronary artery without angina pectoris; I95.9 Hypotension, unspecified; J44.9 Chronic obstructive pulmonary disease, unspecified; Z87.891 Personal history of nicotine dependence

== ENCOUNTER 2017-09-04 19:22 | Emergency (ER) | payer MEDICARE ==
[~2017-09-04 19:22] MED LIST changes: +BETAPACE 120 M120 MG PO; +KLOR-CON M2020 MEQ PO
[2017-09-04 21:12] LABS: BASOPHILS 0.4 % (0-2); EOSINOPHILS 5.9 % (0-7); HEMATOCRIT 32.2 % (36.0-48.0); HEMOGLOBIN 9.8 g/dL (12-16); IMMATURE GRANULOCYTES 0.2 % (0-5); LYMPHOCYTES 24.8 % (15-50); MCH 28.5 pg (26.0-34.0); MCHC 30.4 g/dL (31.0-37.0); MCV 93.6 fL (80.0-100.0); MEAN PLATELET VOLUME 12.9 fL (7.4-10.4); MONOCYTES 9.6 % (2-11); NEUTROPHILS 59.1 % (40-80); PLATELET COUNT 85 10x3/uL (130-400); RBC 3.44 10x6/uL (4.00-5.40); RDW 18.2 % (11.5-14.5); WBC 4.7 10x3/uL (4.8-10.8)
[2017-09-04 21:38] LABS: ALBUMIN 1.8 g/dL (3.4-5.0); BILIRUBIN - TOTAL 0.27 mg/dL (0.2-1.3); CALCIUM 7.2 mg/dL (8.5-10.1); CARBON DIOXIDE 21.3 mmol/L (21.0-32.0); CREATININE - SERUM 2.1 mg/dL (0.6-1.3); POTASSIUM - SERUM 4.3 mmol/L (3.5-5.1); PROTEIN - SERUM 5.8 g/dL (6.4-8.2)
[2017-09-04 23:40] LABS: APPEARANCE CLOUDY (CLEAR); BILIRUBIN NEGATIVE (NEGATIVE); COLOR YELLOW (YELLOW); GLUCOSE 50 mg/dL (NEGATIVE); KETONE NEGATIVE (NEGATIVE); NITRITE NEGATIVE (NEGATIVE); PROTEIN 2+ mg/dL (NEGATIVE); SPECIFIC GRAVITY 1.015 (1.005-1.020); UROBILINOGEN NORMAL (NORMAL)
[2017-09-04 23:42] LABS: BACTERIA MODERATE /hpf (NONE SEEN); EPITHELIAL CELLS 0-5 /hpf (0-5); RED CELLS - URINE 0-5 /hpf (0-5); YEAST <1+ /hpf (NONE SEEN)
== END 2017-09-05 00:10 | disposition home or self-care (01) ==
LOC: D.ER 19:22
PROVIDERS: Family Medicine
DX: R10.9 Unspecified abdominal pain (principal); J90 Pleural effusion, not elsewhere classified; J44.9 Chronic obstructive pulmonary disease, unspecified; E11.9 Type 2 diabetes mellitus without complications; Z79.4 Long term (current) use of insulin; I12.9 Hypertensive chronic kidney disease with stage 1 through stage 4 chronic kidney disease, or unspecified chronic kidney disease; N18.9 Chronic kidney disease, unspecified

== ENCOUNTER 2017-09-11 19:19 | Inpatient (IN) | payer MEDICARE ==
[~2017-09-11] VITALS: Ht 157.5 cm; Wt 76.2 kg
[2017-09-11 20:55] LABS: BASOPHILS 0.5 % (0-2); EOSINOPHILS 2.8 % (0-7); HEMATOCRIT 34.7 % (36.0-48.0); HEMOGLOBIN 10.7 g/dL (12-16); IMMATURE GRANULOCYTES 0.3 % (0-5); LYMPHOCYTES 22.3 % (15-50); MCH 29.1 pg (26.0-34.0); MCHC 30.8 g/dL (31.0-37.0); MCV 94.3 fL (80.0-100.0); MEAN PLATELET VOLUME 11.1 fL (7.4-10.4); MONOCYTES 11.5 % (2-11); NEUTROPHILS 62.6 % (40-80); RBC 3.68 10x6/uL (4.00-5.40); RDW 18.3 % (11.5-14.5); WBC 6.1 10x3/uL (4.8-10.8)
[2017-09-11 20:59] LABS: PLATELET COUNT 66 10x3/uL (130-400)
[2017-09-11 21:34] LABS: APTT 32.2 SECONDS (22.8-39.4); INR 1.2 (0.85-1.17); PROTIME 14.8 SECONDS (11.6-15.0)
[2017-09-11 21:49] LABS: ALBUMIN 2.1 g/dL (3.4-5.0); ANION GAP 17.6 mmol/L (8-16); BILIRUBIN - TOTAL 0.3 mg/dL (0.2-1.3); CALCIUM 7.6 mg/dL (8.5-10.1); CARBON DIOXIDE 19.3 mmol/L (21.0-32.0); CREATININE - SERUM 1.5 mg/dL (0.6-1.3); D-DIMER-QUANTITATIVE 9.22 ug/mLFEU (0.20-0.54); POTASSIUM - SERUM 3.9 mmol/L (3.5-5.1); PROTEIN - SERUM 6.7 g/dL (6.4-8.2)
[2017-09-12] VITALS (7 sets, daily range): BP systolic 113–163; BP diastolic 65–101; Ht 157.5 cm; Wt 76.2 kg
[2017-09-12] MEDS ORDERED: LANTUS INSULIN10 ML SC (02:29)
[2017-09-12 06:10] LABS: BASOPHILS 0.6 % (0-2); EOSINOPHILS 3.7 % (0-7); HEMATOCRIT 35.7 % (36.0-48.0); HEMOGLOBIN 10.8 g/dL (12-16); IMMATURE GRANULOCYTES 0.2 % (0-5); LYMPHOCYTES 31.7 % (15-50); MCH 28.5 pg (26.0-34.0); MCHC 30.3 g/dL (31.0-37.0); MCV 94.2 fL (80.0-100.0); MEAN PLATELET VOLUME 12.3 fL (7.4-10.4); MONOCYTES 8.1 % (2-11); NEUTROPHILS 55.7 % (40-80); RBC 3.79 10x6/uL (4.00-5.40); RDW 18.4 % (11.5-14.5); WBC 4.9 10x3/uL (4.8-10.8)
[2017-09-12 06:27] LABS: ANION GAP 17.3 mmol/L (8-16); CALCIUM 7.7 mg/dL (8.5-10.1); CREATININE - SERUM 1.4 mg/dL (0.6-1.3)
[2017-09-12 06:28] LABS: PLATELET COUNT 152 10x3/uL (130-400); POTASSIUM - SERUM 3.3 mmol/L (3.5-5.1)
[2017-09-13 04:25] VITALS: BP 96/58
[2017-09-13 06:22] LABS: ALBUMIN 2.1 g/dL (3.4-5.0); BILIRUBIN - TOTAL 0.3 mg/dL (0.2-1.3); CALCIUM 7.7 mg/dL (8.5-10.1); CARBON DIOXIDE 19.2 mmol/L (21.0-32.0); CHOL - HDL RATIO 4.7 ratio (2.3-4.1); CREATININE - SERUM 1.6 mg/dL (0.6-1.3); LDL-HDL RATIO 3.3 ratio (1.5-3.5); PROTEIN - SERUM 6.6 g/dL (6.4-8.2); THYROID STIMULATING HORMONE 23.45 uIU/mL (0.36-3.74)
[2017-09-13 06:29] LABS: ANION GAP 17.5 mmol/L (8-16); POTASSIUM - SERUM 4.7 mmol/L (3.5-5.1)
[2017-09-13 06:44] LABS: BASOPHILS 0.6 % (0-2); EOSINOPHILS 4.5 % (0-7); HEMATOCRIT 32.9 % (36.0-48.0); HEMOGLOBIN 9.9 g/dL (12-16); IMMATURE GRANULOCYTES 0.6 % (0-5); LYMPHOCYTES 23.1 % (15-50); MCH 28.4 pg (26.0-34.0); MCHC 30.1 g/dL (31.0-37.0); MCV 94.5 fL (80.0-100.0); MEAN PLATELET VOLUME 11.6 fL (7.4-10.4); MONOCYTES 13.2 % (2-11); PLATELET COUNT 104 10x3/uL (130-400); RBC 3.48 10x6/uL (4.00-5.40); RDW 18.2 % (11.5-14.5); WBC 5.3 10x3/uL (4.8-10.8)
[2017-09-13 08:39] VITALS: BP 114/64
[2017-09-13 12:45] VITALS: BP 107/60
[2017-09-13 17:11] VITALS: BP 110/70
[2017-09-13 20:00] VITALS: BP 127/76
[2017-09-14] VITALS (11 sets, daily range): BP systolic 87–120; BP diastolic 44–75
[2017-09-14 05:13] LABS: BASOPHILS 0.3 % (0-2); EOSINOPHILS 2.5 % (0-7); LYMPHOCYTES 23.7 % (15-50); MCH 28.9 pg (26.0-34.0); MCHC 29.6 g/dL (31.0-37.0); MEAN PLATELET VOLUME 11.7 fL (7.4-10.4); MONOCYTES 6.9 % (2-11); NEUTROPHILS 66.6 % (40-80); RDW 18.3 % (11.5-14.5)
[2017-09-14 05:28] LABS: RBC 2.63 10x6/uL (4.00-5.40); WBC 3.6 10x3/uL (4.8-10.8)
[2017-09-14 05:29] LABS: HEMATOCRIT 25.7 % (36.0-48.0); HEMOGLOBIN 7.6 g/dL (12-16); MCV 97.7 fL (80.0-100.0); PLATELET COUNT 70 10x3/uL (130-400)
[2017-09-14 05:35] LABS: BILIRUBIN - TOTAL 0.28 mg/dL (0.2-1.3); PHOSPHOROUS 2.6 mg/dL (2.5-4.9)
[2017-09-14 06:22] LABS: POTASSIUM - SERUM 3.9 mmol/L (3.5-5.1)
[2017-09-14 06:23] LABS: ALBUMIN 1.1 g/dL (3.4-5.0); ANION GAP 17.3 mmol/L (8-16); CARBON DIOXIDE 13.6 mmol/L (21.0-32.0); PROTEIN - SERUM 3.8 g/dL (6.4-8.2)
[2017-09-14 06:24] LABS: CALCIUM 4.7 mg/dL (8.5-10.1)
[2017-09-14 09:53] LABS: % SATURATION 11 % (15-55); IRON 24 ug/dl (35-150); TOTAL IRON BIND CAPACITY 202 ug/dl (260-445); UNSAT IRON BIND CAPACITY 178 ug/dl (150-375)
[2017-09-15 00:49] VITALS: BP 124/95
[2017-09-15 04:49] VITALS: BP 114/60
[2017-09-15 06:49] LABS: BASOPHILS 0.5 % (0-2); EOSINOPHILS 2.6 % (0-7); IMMATURE GRANULOCYTES 0.2 % (0-5); LYMPHOCYTES 20.5 % (15-50); MCH 28.9 pg (26.0-34.0); MCHC 29.6 g/dL (31.0-37.0); MCV 97.6 fL (80.0-100.0); MEAN PLATELET VOLUME 11.6 fL (7.4-10.4); MONOCYTES 8.6 % (2-11); NEUTROPHILS 67.6 % (40-80); RDW 20.4 % (11.5-14.5)
[2017-09-15 06:50] LABS: HEMATOCRIT 36.5 % (36.0-48.0); HEMOGLOBIN 10.8 g/dL (12-16); PLATELET COUNT 111 10x3/uL (130-400); RBC 3.74 10x6/uL (4.00-5.40); WBC 5.8 10x3/uL (4.8-10.8)
[2017-09-15 08:19] VITALS: BP 110/60
[2017-09-15 08:19] LABS: FOLATE (FOLIC ACID) - SERUM 3.9 ng/mL (>3.0)
[2017-09-15 08:33] LABS: MAGNESIUM - SERUM 1.8 mg/dL (1.8-2.4); PHOSPHOROUS 5.2 mg/dL (2.5-4.9)
[2017-09-15 08:34] LABS: ANION GAP 18.1 mmol/L (8-16)
[2017-09-15 08:36] LABS: POTASSIUM - SERUM 7.1 mmol/L (3.5-5.1)
[2017-09-15 12:10] VITALS: BP 114/76
[2017-09-15 12:43] LABS: CREATININE - SERUM 2.1 mg/dL (0.6-1.3)
[2017-09-15 12:49] LABS: POTASSIUM - SERUM 7.2 mmol/L (3.5-5.1)
[2017-09-15 15:54] VITALS: BP 110/71
[2017-09-15 20:00] VITALS: BP 114/71
[2017-09-16] VITALS: BP 117/78
[2017-09-16 04:00] VITALS: BP 138/90
[2017-09-16 07:44] VITALS: BP 136/74
[2017-09-16 07:46] LABS: BASOPHILS 0.5 % (0-2); EOSINOPHILS 2.7 % (0-7); HEMATOCRIT 35.4 % (36.0-48.0); HEMOGLOBIN 10.7 g/dL (12-16); IMMATURE GRANULOCYTES 0.3 % (0-5); LYMPHOCYTES 21.6 % (15-50); MCH 28.2 pg (26.0-34.0); MCHC 30.2 g/dL (31.0-37.0); MEAN PLATELET VOLUME 12.1 fL (7.4-10.4); MONOCYTES 12.3 % (2-11); NEUTROPHILS 62.6 % (40-80); PLATELET COUNT 119 10x3/uL (130-400); RDW 19.2 % (11.5-14.5); WBC 6.3 10x3/uL (4.8-10.8)
[2017-09-16 07:53] LABS: MCV 93.2 fL (80.0-100.0)
[2017-09-16 08:03] LABS: ANION GAP 19.5 mmol/L (8-16); CALCIUM 7.8 mg/dL (8.5-10.1); CARBON DIOXIDE 18.7 mmol/L (21.0-32.0); CREATININE - SERUM 2.1 mg/dL (0.6-1.3); VANCOMYCIN - RANDOM 26.2 ug/mL (10.0-20.0)
[2017-09-16 08:07] LABS: POTASSIUM - SERUM 6.2 mmol/L (3.5-5.1)
[2017-09-16 11:34] VITALS: BP 132/70
[2017-09-16 16:20] VITALS: BP 130/68
[2017-09-16 21:53] VITALS: BP 110/69
[2017-09-17 02:51] VITALS: BP 141/82
[2017-09-17 08:21] LABS: CREATININE - SERUM 2.2 mg/dL (0.6-1.3); VANCOMYCIN - RANDOM 20.8 ug/mL (10.0-20.0)
[2017-09-17 08:37] VITALS: BP 117/55
[2017-09-17 12:00] VITALS: BP 154/80
[2017-09-17 15:37] VITALS: BP 146/78
[2017-09-17 21:02] VITALS: BP 126/62
[2017-09-18 01:39] VITALS: BP 122/54
[2017-09-18 07:04] LABS: EOSINOPHILS 5.1 % (0-7); HEMATOCRIT 42.7 % (36.0-48.0); HEMOGLOBIN 12.8 g/dL (12-16); IMMATURE GRANULOCYTES 0.3 % (0-5); LYMPHOCYTES 22.1 % (15-50); MCH 28.2 pg (26.0-34.0); MCV 94.1 fL (80.0-100.0); MONOCYTES 9.2 % (2-11); NEUTROPHILS 62.3 % (40-80); PLATELET COUNT 118 10x3/uL (130-400); RBC 4.54 10x6/uL (4.00-5.40); RDW 18.7 % (11.5-14.5); WBC 6.1 10x3/uL (4.8-10.8)
[2017-09-18 07:34] LABS: ANION GAP 17.9 mmol/L (8-16); CALCIUM 7.8 mg/dL (8.5-10.1); CARBON DIOXIDE 20.7 mmol/L (21.0-32.0); CREATININE - SERUM 2.1 mg/dL (0.6-1.3); POTASSIUM - SERUM 4.6 mmol/L (3.5-5.1); VANCOMYCIN - RANDOM 19.3 ug/mL (10.0-20.0)
[2017-09-18 09:07] VITALS: BP 127/70
[2017-09-18 12:35] VITALS: BP 139/75
[2017-09-18 20:00] VITALS: BP 122/71
[2017-09-19] VITALS: BP 104/59
[2017-09-19 04:00] VITALS: BP 124/68
[2017-09-19 05:22] LABS: BASOPHILS 0.9 % (0-2); EOSINOPHILS 6.7 % (0-7); HEMATOCRIT 34.4 % (36.0-48.0); HEMOGLOBIN 10.4 g/dL (12-16); IMMATURE GRANULOCYTES 0.2 % (0-5); LYMPHOCYTES 25.4 % (15-50); MCH 27.9 pg (26.0-34.0); MCHC 30.2 g/dL (31.0-37.0); MCV 92.2 fL (80.0-100.0); MEAN PLATELET VOLUME 11.8 fL (7.4-10.4); NEUTROPHILS 53.8 % (40-80); RBC 3.73 10x6/uL (4.00-5.40); RDW 18.3 % (11.5-14.5)
[2017-09-19 05:23] LABS: PLATELET COUNT 91 10x3/uL (130-400); WBC 4.5 10x3/uL (4.8-10.8)
[2017-09-19 05:57] LABS: CALCIUM 7.3 mg/dL (8.5-10.1); CARBON DIOXIDE 22.3 mmol/L (21.0-32.0); CREATININE - SERUM 2.3 mg/dL (0.6-1.3); POTASSIUM - SERUM 4.3 mmol/L (3.5-5.1); VANCOMYCIN - RANDOM 17.2 ug/mL (10.0-20.0)
[2017-09-19 18:18] VITALS: BP 126/73
[2017-09-19 20:00] VITALS: BP 123/69
[2017-09-20 04:00] VITALS: BP 108/63
[2017-09-20 06:59] LABS: BASOPHILS 0.5 % (0-2); EOSINOPHILS 5.3 % (0-7); HEMATOCRIT 32.5 % (36.0-48.0); HEMOGLOBIN 9.9 g/dL (12-16); LYMPHOCYTES 27.7 % (15-50); MCHC 30.5 g/dL (31.0-37.0); MCV 92.1 fL (80.0-100.0); MEAN PLATELET VOLUME 12.7 fL (7.4-10.4); MONOCYTES 15.3 % (2-11); NEUTROPHILS 51.2 % (40-80); PLATELET COUNT 94 10x3/uL (130-400); RBC 3.53 10x6/uL (4.00-5.40); RDW 18.7 % (11.5-14.5); WBC 4.4 10x3/uL (4.8-10.8)
[2017-09-20 07:22] LABS: ANION GAP 16.3 mmol/L (8-16); CALCIUM 7.4 mg/dL (8.5-10.1); CARBON DIOXIDE 21.7 mmol/L (21.0-32.0); CREATININE - SERUM 2.2 mg/dL (0.6-1.3); VANCOMYCIN - RANDOM 15.3 ug/mL (10.0-20.0)
[2017-09-20 08:46] VITALS: BP 106/54
[2017-09-20 13:10] VITALS: BP 90/53
[2017-09-20 16:33] VITALS: BP 121/71
[2017-09-20 20:00] VITALS: BP 133/81
[2017-09-21] VITALS: BP 131/67
[2017-09-21 05:15] VITALS: BP 128/76
[2017-09-21 08:52] VITALS: BP 148/70
[2017-09-21] MEDS ORDERED: ELIQUIS5 MG PO (09:06)
== END 2017-09-21 13:35 | disposition home or self-care (01) | DRG 603 ==
LOC: D.ER 19:19 → D.MS 09-12 00:02 → D.EDHOLD 09-12 00:02 → D.MS 09-12 00:23
PROVIDERS: Family Medicine
DX: L03.114 Cellulitis of left upper limb (principal); I13.0 Hypertensive heart and chronic kidney disease with heart failure and stage 1 through stage 4 chronic kidney disease, or unspecified chronic kidney disease; I50.22 Chronic systolic (congestive) heart failure; I42.9 Cardiomyopathy, unspecified; I44.2 Atrioventricular block, complete; I27.82 Chronic pulmonary embolism; N18.9 Chronic kidney disease, unspecified; E11.22 Type 2 diabetes mellitus with diabetic chronic kidney disease; Z79.4 Long term (current) use of insulin; Z87.891 Personal history of nicotine dependence; F41.8 Other specified anxiety disorders; E11.40 Type 2 diabetes mellitus with diabetic neuropathy, unspecified; E87.6 Hypokalemia; Z89.512 Acquired absence of left leg below knee; Z89.511 Acquired absence of right leg below knee; I73.9 Peripheral vascular disease, unspecified; M19.90 Unspecified osteoarthritis, unspecified site; K21.9 Gastro-esophageal reflux disease without esophagitis; Z95.0 Presence of cardiac pacemaker; I80.8 Phlebitis and thrombophlebitis of other sites; Z79.01 Long term (current) use of anticoagulants

== ENCOUNTER 2017-09-29 20:30 | Inpatient (IN) | payer MEDICARE ==
[~2017-09-29] VITALS: Ht 157.5 cm; Wt 73.6 kg
--- NOTE | ~2017-09-29 | EC ---
PATIENT:HARINDER OBANDO DATE OF SERVICE: 09/30/17 SEX: F MEDICAL RECORD: [id number] DATE OF : 63 LOCATION:D.M2 D.212 AGE OF PATIENT: 52 ADMISSION DATE: 09/30/17 REFERRING PHYSICIAN: INTERPRETING PHYSICIAN: MACHO LOUISE MD ECHOCARDIOGRAM REPORT ECHO CHARGES 4 ECHO COMPLETE Date: 09/30 CLINICAL DIAGNOSIS: CHEST PAIN ECHOCARDIOGRAPHIC MEASUREMENTS (adult normal given) AC root (d.<3.7cm) 3.6 cm LV Septum d (<1.2 cm> 1.1 cm Valve Excursion 1.4 cm LV Septum (systole) 1.3 cm Left Atria (s.<4.0cm> 3.8 cm LVPW d(<1.2cm) 1.1 cm RV (d.<2.3cm) 4.3 cm LVPW (sytole) 1.3 cm LV diastole(<5.6CM) 6.2 cm MV E-F(>70mm/sec) cm LV systole 5.3 cm LVOT Diameter 1.6 cm MV exc.(>10mm) 1.1 cm Est.ejection fraction (50-75%) % DOPPLER: LVIT cm/sec A 100 cm/sec E 80.0 cm/sec LA cm/sec RVSP 50 mmHg LVOT 53 cm/sec AOP1/2T m/s Asc. Ao 77 cm/sec RVOT 39 cm/sec RA cm/sec PA 63 cm/sec AV Gradient Peak 2.35 mmHg AV Mean 1.34 mmHg AV Area 1.3 cm MV Gradient Peak 4.45 mmHg MV Mean 2.51 mmHg MV Area cm COMMENTS: Truck Crane Operator Helper: 2 JUDAH DELEON Anchorer: 4 Dr. Louise TAPE# PACS Pericardial Effusion N DATE OF SERVICE: PROCEDURE: Transthoracic echocardiogram. FINDINGS: 1. Left ventricle shows dilatation, shows regional wall motion abnormalities with a dyskinetic anterior and anterior septal segments and a global hypokinesis. Overall ejection fraction is 15% to 20%. 2. The left atrium is normal size, normal function. 3. The aortic valve is normal size, normal function. ECHOCARDIOGRAM REPORT [id number] HARINDER OBANDO 4. The mitral valve has severe centralized mitral regurgitation with inflow characteristics consistent with diastolic dysfunction or elevated left ventricular end-diastolic pressures. 5. Tricuspid valve: Mild tricuspid regurgitation with an RVSP of 60 mmHg. 6. Pericardium is normal. 7. The right ventricle is dilated with normal function. 8. The right atrium is dilated with normal function. 9. The pulmonic valve is normal. CONCLUSIONS: The patient has severe ischemic and valvular cardiomyopathy with ejection fraction of 15% to 20% in light of severe mitral regurgitation. TRANSINT:[id number] Voice Confirmation ID: [id number] DOCUMENT ID: [id number] MACHO LOUISE MD at 0838 CC: [id number] DICTATION DATE: 10/01/17 0723 PROTOTYPE ENGINEER MANAGER: 10/01/17 0910 ADM IN [place] [id number] [place] [id number]
--- NOTE | ~2017-09-29 | CN ---
PATIENT NAME:HARINDER AVENDANO MEDICAL RECORD: [id number] : 63 LOCATION:D. D.2124 ADMIT DATE: 09/30/17 ACCOUNT: [id number] CONSULTING PHYSICIAN: ALESSANDRO CRESPO MD REFERRING PHYSICIAN: PAL RAMIRES MD DATE OF CONSULTATION: 10/01/2017 Pulmonary Consultation CONSULT REQUESTING PHYSICIAN: Pal Ramires MD REASON FOR CONSULTATION: Acute hypoxic respiratory failure. HISTORY OF PRESENT ILLNESS: Ms. Avendano is a 52-year-old female who has a history of COPD, cardiomyopathy with EF of 20%, complete heart block. The patient was admitted with chest pain. Last night, the rapid response was called. The patient was very dyspneic and her pulse ox was in 80s. Also, she has a history of pulmonary embolism, was admitted in first week of September and also she has thrombophlebitis and cellulitis of the left upper extremity. She was initially put on Eliquis and then she was continued on Plavix. REVIEW OF SYSTEMS: As in history of present illness. PAST MEDICAL HISTORY: 1. TIA. 2. Diabetic neuropathy. 3. Peripheral vascular disease. 4. Diabetes mellitus. 5. Hypothyroidism. 6. Hypertension. 7. Congestive heart failure with cardiomyopathy, EF of 20%. 8. Valvular disease. 9. History of COPD and pneumonia. 10. History of anxiety, depression. PAST SURGICAL HISTORY: 1. She has cholecystectomy. 2. . 3. Bilateral above-knee amputations. 4. Status post pacemaker placement. 5. Appendectomy. ALLERGIES: There are no known drug allergies. MEDICATIONS: Apprats is reviewed. PERSONAL AND SOCIAL HISTORY: The patient is a nonsmoker, nondrinker. FAMILY HISTORY: Unknown. PHYSICAL EXAMINATION: GENERAL: Now, the patient is lying comfortably. She is not in acute distress. VITAL SIGNS: The blood pressure is 104/65, pulse is 81, respiration 20, temperature 97.5, SpO2 is 98% on 2 liters nasal cannula. HEENT: Conjunctivae are pink. Sclerae nonicteric. CONSULT REPORT [id number] HARINDER AVENDANO NECK: Supple. There is elevated JVD. CHEST: There are bilateral crackles. No wheezing. HEART: Rate and rhythm regular. There is II/ systolic murmur. ABDOMEN: Soft, bowel sounds present. No hepatosplenomegaly. RECTAL: Deferred. EXTREMITIES: No cyanosis, no clubbing, no pedal edema. SKIN: Warm, normal turgor. CENTRAL NERVOUS SYSTEM: The patient is awake and alert. There are no obvious cranial nerve abnormalities. The patient has bilateral above-knee amputations. LABORATORY DATA AND DIAGNOSTIC STUDIES: Cardiac echo, the right ventricular fraction is 50%, the EF is 15-20%. There is also mitral and tricuspid regurgitation. Chest radiograph: There are bilateral hilar infiltrate. The VQ scan was low probability. Other lab data, CBC: WBC is 5.3, hemoglobin 10.8, hematocrit 35.3, the platelet count is 140. ABG: The pH was 7.29, pCO2 was 34.7, the pO2 124, and bicarb was 16.8. IMPRESSION: 1. Acute hypoxic respiratory failure. 2. Acute exacerbation of chronic obstructive pulmonary disease. 3. Pulmonary edema. 4. Pulmonary embolism. 5. Metabolic acidosis, possible septic secondary to cellulitis. 6. Cardiomyopathy. 7. Secondary pulmonary hypertension. 8. Cellulitis. 9. Valvular heart disease. RECOMMENDATIONS: 1. We will start on vancomycin and cefepime. 2. Albuterol/ipratropium nebulizer. 3. Brovana/budesonide nebulizer. 4. Continue supplemental oxygen. 5. Diuresis. 6. Bicarbonate drip. 7. Continue Eliquis. 8. Follow up labs and chest radiograph. Dr. Ramires, thank you for involving me in the care of Ms. Avendano. TRANSINT:[id number] Voice Confirmation ID: [id number] DOCUMENT ID: [id number] ALESSANDRO CRESPO MD at 1208 CC: PAL RAMIRES [id number] DICTATION DATE: 10/01/17 1414 LAP REGULATOR: 10/01/17 1453 DIS IN 10/11/17 [place] [id number] [place] [address]
[~2017-09-29 20:30] MED LIST changes: +ELIQUIS5 MG PO
[2017-09-29 20:55] LABS: BASOPHILS 1.5 % (0-2); EOSINOPHILS 1.7 % (0-7); HEMATOCRIT 35.3 % (36.0-48.0); HEMOGLOBIN 10.8 g/dL (12-16); LYMPHOCYTES 44.8 % (15-50); MCH 28.7 pg (26.0-34.0); MCHC 30.6 g/dL (31.0-37.0); MCV 93.9 fL (80.0-100.0); MEAN PLATELET VOLUME 12.3 fL (7.4-10.4); MONOCYTES 8.3 % (2-11); NEUTROPHILS 43.7 % (40-80); RBC 3.76 10x6/uL (4.00-5.40); RDW 20.1 % (11.5-14.5); WBC 5.3 10x3/uL (4.8-10.8)
[2017-09-29 21:10] LABS: PLATELET COUNT 140 10x3/uL (130-400)
[2017-09-29 21:16] LABS: INR 1.39 (0.85-1.17); PROTIME 16.6 SECONDS (11.6-15.0)
[2017-09-29 21:18] LABS: APTT 35.1 SECONDS (22.8-39.4)
[2017-09-29 21:30] LABS: ALBUMIN 2.2 g/dL (3.4-5.0); ALKALINE PHOSPHATASE 75 U/L (46-116); ALT (SGPT) 42 U/L (10-68); CALC OSMOLALITY 286 mosm/kg (275-300); CALCIUM 7.5 mg/dL (8.5-10.1); CARBON DIOXIDE 19.5 mmol/L (21.0-32.0); CHLORIDE - SERUM 107 mmol/L (98-107); CREATININE - SERUM 1.9 mg/dL (0.6-1.3); GLUCOSE 98 mg/dL (74-106); POTASSIUM - SERUM 3.9 mmol/L (3.5-5.1); PROTEIN - SERUM 6.9 g/dL (6.4-8.2); SODIUM 141 mmol/L (136-145); UREA NITROGEN 30 mg/dL (7-18); eGFR NON AFRICAN AMERICAN 29 mL/min (90-120)
[2017-09-29 21:33] LABS: D-DIMER-QUANTITATIVE 6.95 ug/mLFEU (0.20-0.54)
[2017-09-29 21:44] LABS: CKMB 1.4 U/L (0.0-3.6); CREATINE KINASE 33 UL (21-215); PRO BNP 83162 pg/mL (0-125)
[2017-09-29 21:45] LABS: TROPONIN-I 0.085 ng/mL (0.000-0.060)
[2017-09-29 21:52] LABS: KETONE - SERUM NEGATIVE (NEGATIVE)
[2017-09-30] VITALS (10 sets, daily range): BP systolic 114–152; BP diastolic 71–97; BMI 30.8; BMI 30.7
[2017-09-30 02:45] LABS: CKMB 0.9 U/L (0.0-3.6); CREATINE KINASE 27 UL (21-215)
[2017-09-30 02:50] LABS: TROPONIN-I 0.087 ng/mL (0.000-0.060)
[2017-09-30 08:14] LABS: CKMB 1.2 U/L (0.0-3.6); CREATINE KINASE 27 UL (21-215)
[2017-09-30 08:15] LABS: TROPONIN-I 0.116 ng/mL (0.000-0.060)
[2017-09-30 16:05] LABS: CKMB 1.3 U/L (0.0-3.6); CREATINE KINASE 32 UL (21-215)
[2017-09-30 16:06] LABS: TROPONIN-I 0.101 ng/mL (0.000-0.060)
[2017-09-30 18:57] LABS: BASOPHILS 1.8 % (0-2); EOSINOPHILS 1.4 % (0-7); HEMATOCRIT 34.9 % (36.0-48.0); HEMOGLOBIN 10.6 g/dL (12-16); IMMATURE GRANULOCYTES 0.2 % (0-5); MCH 28.3 pg (26.0-34.0); MCHC 30.4 g/dL (31.0-37.0); MCV 93.1 fL (80.0-100.0); MEAN PLATELET VOLUME 12.2 fL (7.4-10.4); MONOCYTES 9.5 % (2-11); NEUTROPHILS 55.1 % (40-80); PLATELET COUNT 133 10x3/uL (130-400); RBC 3.75 10x6/uL (4.00-5.40); RDW 19.9 % (11.5-14.5); WBC 5.1 10x3/uL (4.8-10.8)
[2017-09-30 19:09] LABS: INR 1.62 (0.85-1.17); PROTIME 18.8 SECONDS (11.6-15.0)
[2017-09-30 19:10] LABS: APTT 41.8 SECONDS (22.8-39.4)
[2017-09-30 19:16] LABS: ALBUMIN 2.1 g/dL (3.4-5.0); ANION GAP 20.5 mmol/L (8-16); BILIRUBIN - TOTAL 0.37 mg/dL (0.2-1.3); CALCIUM 7.6 mg/dL (8.5-10.1); CARBON DIOXIDE 17.7 mmol/L (21.0-32.0); CREATININE - SERUM 2.1 mg/dL (0.6-1.3); POTASSIUM - SERUM 4.2 mmol/L (3.5-5.1); PROTEIN - SERUM 6.6 g/dL (6.4-8.2)
[2017-10-01] VITALS (24 sets, daily range): BP systolic 91–148; BP diastolic 60–102
[2017-10-01 05:23] LABS: ALBUMIN 1.9 g/dL (3.4-5.0); ANION GAP 19.8 mmol/L (8-16); BILIRUBIN - TOTAL 0.3 mg/dL (0.2-1.3); CALCIUM 7.5 mg/dL (8.5-10.1); CREATININE - SERUM 1.9 mg/dL (0.6-1.3); POTASSIUM - SERUM 3.8 mmol/L (3.5-5.1)
[2017-10-01 05:26] LABS: BASOPHILS 1.5 % (0-2); HEMATOCRIT 32.1 % (36.0-48.0); LYMPHOCYTES 33.1 % (15-50); MCH 28.7 pg (26.0-34.0); MCHC 31.2 g/dL (31.0-37.0); MCV 92.2 fL (80.0-100.0); MEAN PLATELET VOLUME 12.3 fL (7.4-10.4); MONOCYTES 9.7 % (2-11); NEUTROPHILS 52.7 % (40-80); PLATELET COUNT 120 10x3/uL (130-400); RBC 3.48 10x6/uL (4.00-5.40); WBC 4.6 10x3/uL (4.8-10.8)
[2017-10-02] VITALS (16 sets, daily range): BP systolic 98–148; BP diastolic 50–95; Ht 157.5 cm; Wt 73.6 kg
[2017-10-02 03:35] LABS: BASOPHILS 0.8 % (0-2); EOSINOPHILS 4.8 % (0-7); HEMATOCRIT 34.4 % (36.0-48.0); HEMOGLOBIN 10.6 g/dL (12-16); IMMATURE GRANULOCYTES 0.3 % (0-5); LYMPHOCYTES 31.8 % (15-50); MCH 28.5 pg (26.0-34.0); MCHC 30.8 g/dL (31.0-37.0); MCV 92.5 fL (80.0-100.0); MONOCYTES 10.3 % (2-11); PLATELET COUNT 111 10x3/uL (130-400); RBC 3.72 10x6/uL (4.00-5.40); RDW 19.9 % (11.5-14.5); WBC 3.8 10x3/uL (4.8-10.8)
[2017-10-02 03:49] LABS: ANION GAP 17.7 mmol/L (8-16); CALCIUM 7.6 mg/dL (8.5-10.1); CARBON DIOXIDE 21.8 mmol/L (21.0-32.0); CREATININE - SERUM 1.7 mg/dL (0.6-1.3); MAGNESIUM - SERUM 1.6 mg/dL (1.8-2.4); POTASSIUM - SERUM 3.5 mmol/L (3.5-5.1)
[2017-10-03 01:03] VITALS: BP 138/74
[2017-10-03 05:01] VITALS: BP 139/79
[2017-10-03 05:31] LABS: BASOPHILS 0.4 % (0-2); HEMATOCRIT 32.3 % (36.0-48.0); LYMPHOCYTES 25.1 % (15-50); MCH 28.4 pg (26.0-34.0); MCV 91.8 fL (80.0-100.0); MEAN PLATELET VOLUME 12.9 fL (7.4-10.4); MONOCYTES 12.1 % (2-11); NEUTROPHILS 58.4 % (40-80); PLATELET COUNT 102 10x3/uL (130-400); RBC 3.52 10x6/uL (4.00-5.40)
[2017-10-03 05:45] LABS: WBC 4.8 10x3/uL (4.8-10.8)
[2017-10-03 05:47] LABS: ANION GAP 16.6 mmol/L (8-16); CALCIUM 7.7 mg/dL (8.5-10.1); CARBON DIOXIDE 22.6 mmol/L (21.0-32.0); CREATININE - SERUM 1.8 mg/dL (0.6-1.3); MAGNESIUM - SERUM 1.5 mg/dL (1.8-2.4); POTASSIUM - SERUM 3.2 mmol/L (3.5-5.1)
[2017-10-03 10:29] VITALS: BP 141/72
[2017-10-03 11:42] VITALS: BP 136/78
[2017-10-03 15:46] VITALS: BP 130/70
[2017-10-03 20:00] VITALS: BP 130/83
[2017-10-04] VITALS: BP 123/66
[2017-10-04 04:00] VITALS: BP 130/76
[2017-10-04 06:04] LABS: BASOPHILS 1.4 % (0-2); EOSINOPHILS 2.2 % (0-7); HEMATOCRIT 34.2 % (36.0-48.0); HEMOGLOBIN 10.3 g/dL (12-16); IMMATURE GRANULOCYTES 0.2 % (0-5); LYMPHOCYTES 25.5 % (15-50); MCH 28.2 pg (26.0-34.0); MCHC 30.1 g/dL (31.0-37.0); MCV 93.7 fL (80.0-100.0); MEAN PLATELET VOLUME 11.4 fL (7.4-10.4); MONOCYTES 9.9 % (2-11); NEUTROPHILS 60.8 % (40-80); PLATELET COUNT 98 10x3/uL (130-400); RBC 3.65 10x6/uL (4.00-5.40); WBC 5.9 10x3/uL (4.8-10.8)
[2017-10-04 06:11] LABS: ANION GAP 17.4 mmol/L (8-16); CALCIUM 8.2 mg/dL (8.5-10.1); CARBON DIOXIDE 21.6 mmol/L (21.0-32.0)
[2017-10-04 08:04] LABS: PLATELET ESTIMATE DECREASED
[2017-10-04 08:53] VITALS: BP 131/80
[2017-10-04 12:36] VITALS: BP 104/82
[2017-10-04 15:38] VITALS: BP 118/82
[2017-10-04 19:00] VITALS: BP 152/88
[2017-10-05 04:00] VITALS: BP 139/67
[2017-10-05 06:30] LABS: BASOPHILS 0.8 % (0-2); EOSINOPHILS 3.4 % (0-7); HEMATOCRIT 33.5 % (36.0-48.0); HEMOGLOBIN 10.2 g/dL (12-16); LYMPHOCYTES 32.9 % (15-50); MCH 28.4 pg (26.0-34.0); MCHC 30.4 g/dL (31.0-37.0); MCV 93.3 fL (80.0-100.0); MONOCYTES 11.6 % (2-11); NEUTROPHILS 51.3 % (40-80); PLATELET COUNT 92 10x3/uL (130-400); RBC 3.59 10x6/uL (4.00-5.40); RDW 20.1 % (11.5-14.5)
[2017-10-05 06:55] LABS: CALCIUM 8.4 mg/dL (8.5-10.1); CARBON DIOXIDE 18.5 mmol/L (21.0-32.0); CREATININE - SERUM 2.1 mg/dL (0.6-1.3); MAGNESIUM - SERUM 2.1 mg/dL (1.8-2.4); POTASSIUM - SERUM 4.5 mmol/L (3.5-5.1); VANCOMYCIN - RANDOM 26.9 ug/mL (10.0-20.0)
[2017-10-05 08:44] VITALS: BP 141/79
[2017-10-05 11:50] VITALS: BP 140/70
[2017-10-05 16:44] VITALS: BP 138/78
[2017-10-05 21:06] VITALS: BP 131/77
[2017-10-06 01:46] VITALS: BP 124/76
[2017-10-06 05:31] LABS: BASOPHILS 1.3 % (0-2); EOSINOPHILS 3.3 % (0-7); HEMATOCRIT 32.2 % (36.0-48.0); HEMOGLOBIN 9.8 g/dL (12-16); IMMATURE GRANULOCYTES 0.2 % (0-5); LYMPHOCYTES 31.5 % (15-50); MCH 27.9 pg (26.0-34.0); MCHC 30.4 g/dL (31.0-37.0); MCV 91.7 fL (80.0-100.0); NEUTROPHILS 52.7 % (40-80); PLATELET COUNT 99 10x3/uL (130-400); RBC 3.51 10x6/uL (4.00-5.40); RDW 19.8 % (11.5-14.5); WBC 6.1 10x3/uL (4.8-10.8)
[2017-10-06 05:40] VITALS: BP 143/80
[2017-10-06 05:55] LABS: CALCIUM 8.6 mg/dL (8.5-10.1); CARBON DIOXIDE 20.3 mmol/L (21.0-32.0); CREATININE - SERUM 2.3 mg/dL (0.6-1.3); MAGNESIUM - SERUM 2.1 mg/dL (1.8-2.4); POTASSIUM - SERUM 4.3 mmol/L (3.5-5.1); VANCOMYCIN - RANDOM 24.9 ug/mL (10.0-20.0)
[2017-10-06 08:33] VITALS: BP 131/73
[2017-10-06 11:41] VITALS: BP 130/70
[2017-10-06 15:37] VITALS: BP 124/68
[2017-10-06 21:09] VITALS: BP 127/82
[2017-10-07 01:02] VITALS: BP 128/51
[2017-10-07 05:31] VITALS: BP 117/69
[2017-10-07 05:39] LABS: BASOPHILS 0.5 % (0-2); EOSINOPHILS 4.1 % (0-7); HEMATOCRIT 32.1 % (36.0-48.0); HEMOGLOBIN 9.7 g/dL (12-16); IMMATURE GRANULOCYTES 0.2 % (0-5); LYMPHOCYTES 29.2 % (15-50); MCH 27.7 pg (26.0-34.0); MCHC 30.2 g/dL (31.0-37.0); MCV 91.7 fL (80.0-100.0); MONOCYTES 10.4 % (2-11); NEUTROPHILS 55.6 % (40-80); PLATELET COUNT 104 10x3/uL (130-400); RDW 19.7 % (11.5-14.5); WBC 5.6 10x3/uL (4.8-10.8)
[2017-10-07 06:26] LABS: ANION GAP 15.7 mmol/L (8-16); CALCIUM 8.1 mg/dL (8.5-10.1); CARBON DIOXIDE 21.5 mmol/L (21.0-32.0); CREATININE - SERUM 2.3 mg/dL (0.6-1.3); POTASSIUM - SERUM 5.2 mmol/L (3.5-5.1); VANCOMYCIN - RANDOM 20.2 ug/mL (10.0-20.0)
[2017-10-07 08:36] VITALS: BP 116/66
[2017-10-07 11:34] VITALS: BP 120/72
[2017-10-07 15:42] VITALS: BP 138/78
[2017-10-07 21:15] VITALS: BP 117/57
[2017-10-08 01:05] VITALS: BP 126/78
[2017-10-08 05:16] VITALS: BP 111/57
[2017-10-08 06:18] LABS: ALBUMIN 1.6 g/dL (3.4-5.0); ANION GAP 14.5 mmol/L (8-16); BILIRUBIN - TOTAL 0.4 mg/dL (0.2-1.3); CALCIUM 8.2 mg/dL (8.5-10.1); CARBON DIOXIDE 21.9 mmol/L (21.0-32.0); CREATININE - SERUM 2.4 mg/dL (0.6-1.3); PROTEIN - SERUM 5.9 g/dL (6.4-8.2); VANCOMYCIN - RANDOM 18.9 ug/mL (10.0-20.0)
[2017-10-08 06:22] LABS: BASOPHILS 0.6 % (0-2); EOSINOPHILS 3.5 % (0-7); HEMATOCRIT 33.1 % (36.0-48.0); IMMATURE GRANULOCYTES 0.2 % (0-5); MCH 27.9 pg (26.0-34.0); MCHC 30.2 g/dL (31.0-37.0); MCV 92.5 fL (80.0-100.0); MONOCYTES 10.5 % (2-11); NEUTROPHILS 54.2 % (40-80); PLATELET COUNT 103 10x3/uL (130-400); RBC 3.58 10x6/uL (4.00-5.40); RDW 19.6 % (11.5-14.5); WBC 6.3 10x3/uL (4.8-10.8)
[2017-10-08 06:25] LABS: POTASSIUM - SERUM 4.4 mmol/L (3.5-5.1)
[2017-10-08 07:51] VITALS: BP 103/58
[2017-10-08 11:21] VITALS: BP 109/62
[2017-10-08 15:07] VITALS: BP 104/66
[2017-10-08 21:33] VITALS: BP 125/68
[2017-10-09 06:12] VITALS: BP 112/62
[2017-10-09 09:14] VITALS: BP 126/63
[2017-10-09 11:40] VITALS: BP 100/53
[2017-10-09 15:36] VITALS: BP 119/68
[2017-10-09 20:00] VITALS: BP 146/75
[2017-10-10] VITALS: BP 107/58
[2017-10-10 04:00] VITALS: BP 108/57
[2017-10-10 06:16] LABS: BASOPHILS 0.6 % (0-2); HEMATOCRIT 28.4 % (36.0-48.0); IMMATURE GRANULOCYTES 0.1 % (0-5); LYMPHOCYTES 22.3 % (15-50); MCH 28.1 pg (26.0-34.0); MCHC 31.7 g/dL (31.0-37.0); MONOCYTES 11.2 % (2-11); NEUTROPHILS 61.8 % (40-80); RDW 19.6 % (11.5-14.5); WBC 6.8 10x3/uL (4.8-10.8)
[2017-10-10 06:18] LABS: MCV 88.8 fL (80.0-100.0); PLATELET COUNT 65 10x3/uL (130-400)
[2017-10-10 06:55] LABS: ANION GAP 15.3 mmol/L (8-16); CALCIUM 8.5 mg/dL (8.5-10.1); CARBON DIOXIDE 23.1 mmol/L (21.0-32.0); CREATININE - SERUM 2.2 mg/dL (0.6-1.3); THYROID STIMULATING HORMONE 26.97 uIU/mL (0.36-3.74); VANCOMYCIN - RANDOM 15.8 ug/mL (10.0-20.0)
[2017-10-10 06:56] LABS: POTASSIUM - SERUM 3.4 mmol/L (3.5-5.1)
[2017-10-10 07:59] VITALS: BP 119/52
[2017-10-10 11:27] VITALS: BP 112/58
[2017-10-10 15:22] VITALS: BP 107/60
[2017-10-10 20:00] VITALS: BP 124/66
[2017-10-11] VITALS: BP 135/63
[2017-10-11 04:00] VITALS: BP 112/54
[2017-10-11 08:05] LABS: BASOPHILS 0.8 % (0-2); EOSINOPHILS 4.2 % (0-7); HEMATOCRIT 27.5 % (36.0-48.0); HEMOGLOBIN 8.4 g/dL (12-16); IMMATURE GRANULOCYTES 0.2 % (0-5); LYMPHOCYTES 26.8 % (15-50); MCH 27.7 pg (26.0-34.0); MCHC 30.5 g/dL (31.0-37.0); MONOCYTES 11.2 % (2-11); NEUTROPHILS 56.8 % (40-80); RBC 3.03 10x6/uL (4.00-5.40); RDW 19.6 % (11.5-14.5); WBC 6.4 10x3/uL (4.8-10.8)
[2017-10-11 08:09] LABS: MCV 90.8 fL (80.0-100.0); PLATELET COUNT 91 10x3/uL (130-400)
[2017-10-11] MEDS ORDERED: KLOR-CON20 MEQ/PKT PO (08:19)
[2017-10-11] MEDS ORDERED: LEVOXYL100 MCG PO (08:19)
[2017-10-11 08:27] LABS: ANION GAP 10.6 mmol/L (8-16); CALCIUM 7.9 mg/dL (8.5-10.1); CARBON DIOXIDE 25.6 mmol/L (21.0-32.0); CREATININE - SERUM 2.2 mg/dL (0.6-1.3); POTASSIUM - SERUM 3.2 mmol/L (3.5-5.1); VANCOMYCIN - RANDOM 13.2 ug/mL (10.0-20.0)
[2017-10-11 08:30] VITALS: BP 105/89
[2017-10-11] MEDS ORDERED: LEVOXYL125 MCG PO (08:34)
[2017-10-11 11:04] VITALS: BP 120/77
== END 2017-10-11 13:46 | disposition home or self-care (01) | DRG 291 ==
LOC: D.ER 20:30 → D.ICU 09-30 01:35 → D.M2 09-30 01:35 → D.EDHOLD 09-30 01:35 → D.M2 09-30 02:27 → D.ICU 09-30 19:25 → D.M2 10-02 15:41
PROVIDERS: Family Medicine; Internal Medicine Pulmonary Disease
DX: I13.0 Hypertensive heart and chronic kidney disease with heart failure and stage 1 through stage 4 chronic kidney disease, or unspecified chronic kidney disease (principal); I50.23 Acute on chronic systolic (congestive) heart failure; J96.01 Acute respiratory failure with hypoxia; J18.9 Pneumonia, unspecified organism; I26.99 Other pulmonary embolism without acute cor pulmonale; N18.4 Chronic kidney disease, stage 4 (severe); I27.82 Chronic pulmonary embolism; J44.1 Chronic obstructive pulmonary disease with (acute) exacerbation; E87.2 Acidosis; J81.1 Chronic pulmonary edema; N39.0 Urinary tract infection, site not specified; L03.119 Cellulitis of unspecified part of limb; E11.22 Type 2 diabetes mellitus with diabetic chronic kidney disease; I25.119 Atherosclerotic heart disease of native coronary artery with unspecified angina pectoris; I27.20 Pulmonary hypertension, unspecified; I25.5 Ischemic cardiomyopathy; I34.0 Nonrheumatic mitral (valve) insufficiency; I73.9 Peripheral vascular disease, unspecified; E03.9 Hypothyroidism, unspecified; E78.5 Hyperlipidemia, unspecified; M19.90 Unspecified osteoarthritis, unspecified site; K21.9 Gastro-esophageal reflux disease without esophagitis; F41.8 Other specified anxiety disorders; E11.40 Type 2 diabetes mellitus with diabetic neuropathy, unspecified; D64.9 Anemia, unspecified; B95.62 Methicillin resistant Staphylococcus aureus infection as the cause of diseases classified elsewhere; Z86.73 Personal history of transient ischemic attack (TIA), and cerebral infarction without residual deficits; Z89.612 Acquired absence of left leg above knee; Z89.611 Acquired absence of right leg above knee; Z95.0 Presence of cardiac pacemaker; I45.9 Conduction disorder, unspecified

== ENCOUNTER 2017-10-14 18:23 | Inpatient (IN) | payer MEDICARE ==
[~2017-10-14] VITALS: Ht 157.5 cm; Wt 78.6 kg
[~2017-10-14 18:23] MED LIST changes: +KLOR-CON20 MEQ/PKT PO; +LEVOXYL100 MCG PO; +LEVOXYL125 MCG PO
[2017-10-14 18:56] LABS: BASOPHILS 0.1 % (0-2); EOSINOPHILS 0 % (0-7); HEMATOCRIT 29.5 % (36.0-48.0); HEMOGLOBIN 8.7 g/dL (12-16); IMMATURE GRANULOCYTES 0.4 % (0-5); LYMPHOCYTES 21.5 % (15-50); MCH 27.4 pg (26.0-34.0); MCHC 29.5 g/dL (31.0-37.0); MCV 93.1 fL (80.0-100.0); MONOCYTES 7.5 % (2-11); NEUTROPHILS 70.5 % (40-80); PLATELET COUNT 151 10x3/uL (130-400); RBC 3.17 10x6/uL (4.00-5.40); RDW 20.8 % (11.5-14.5); WBC 7.9 10x3/uL (4.8-10.8)
[2017-10-14 19:07] LABS: INR 3.04 (0.85-1.17); PROTIME 30.7 SECONDS (11.6-15.0)
[2017-10-14 19:30] LABS: ALBUMIN 1.8 g/dL (3.4-5.0); BILIRUBIN - TOTAL 0.54 mg/dL (0.2-1.3); CALCIUM 8.9 mg/dL (8.5-10.1); CARBON DIOXIDE 21.1 mmol/L (21.0-32.0); CREATININE - SERUM 2.5 mg/dL (0.6-1.3); POTASSIUM - SERUM 4.1 mmol/L (3.5-5.1); PROTEIN - SERUM 6.2 g/dL (6.4-8.2)
[2017-10-14 22:25] LABS: HEMATOCRIT 28.7 % (36.0-48.0); HEMOGLOBIN 8.6 g/dL (12-16)
[2017-10-15 02:25] LABS: HEMATOCRIT 28.5 % (36.0-48.0); HEMOGLOBIN 8.5 g/dL (12-16)
[2017-10-15 02:45] VITALS: BP 147/88; BMI 68.3
[2017-10-15 04:00] VITALS: BP 140/89
[2017-10-15 05:21] LABS: BASOPHILS 0.3 % (0-2); EOSINOPHILS 0 % (0-7); HEMATOCRIT 28.4 % (36.0-48.0); HEMOGLOBIN 8.5 g/dL (12-16); IMMATURE GRANULOCYTES 0.6 % (0-5); LYMPHOCYTES 25.3 % (15-50); MCH 27.5 pg (26.0-34.0); MCHC 29.9 g/dL (31.0-37.0); MCV 91.9 fL (80.0-100.0); NEUTROPHILS 65.8 % (40-80); PLATELET COUNT 151 10x3/uL (130-400); RBC 3.09 10x6/uL (4.00-5.40); WBC 6.5 10x3/uL (4.8-10.8)
[2017-10-15 05:41] LABS: CALCIUM 8.5 mg/dL (8.5-10.1); CREATININE - SERUM 2.5 mg/dL (0.6-1.3)
[2017-10-15 09:16] VITALS: BP 148/78
[2017-10-15 12:02] VITALS: BP 136/74
[2017-10-15 15:39] VITALS: BP 146/75
[2017-10-15 20:00] VITALS: BP 133/70
[2017-10-16 04:00] VITALS: BP 129/71
[2017-10-16 06:20] LABS: BASOPHILS 0.2 % (0-2); EOSINOPHILS 0.2 % (0-7); HEMATOCRIT 26.2 % (36.0-48.0); HEMOGLOBIN 7.9 g/dL (12-16); IMMATURE GRANULOCYTES 0.4 % (0-5); LYMPHOCYTES 31.9 % (15-50); MCH 28.3 pg (26.0-34.0); MCHC 30.2 g/dL (31.0-37.0); MEAN PLATELET VOLUME 11.8 fL (7.4-10.4); MONOCYTES 10.6 % (2-11); NEUTROPHILS 56.7 % (40-80); PLATELET COUNT 144 10x3/uL (130-400); RBC 2.79 10x6/uL (4.00-5.40); RDW 21.5 % (11.5-14.5); WBC 5.5 10x3/uL (4.8-10.8)
[2017-10-16 06:31] LABS: MCV 93.9 fL (80.0-100.0)
[2017-10-16 06:44] LABS: ALBUMIN 1.6 g/dL (3.4-5.0); ANION GAP 18.2 mmol/L (8-16); BILIRUBIN - TOTAL 0.5 mg/dL (0.2-1.3); CALCIUM 8.1 mg/dL (8.5-10.1); CARBON DIOXIDE 20.5 mmol/L (21.0-32.0); CREATININE - SERUM 2.3 mg/dL (0.6-1.3); PHOSPHOROUS 4.4 mg/dL (2.5-4.9); POTASSIUM - SERUM 3.7 mmol/L (3.5-5.1); PROTEIN - SERUM 5.7 g/dL (6.4-8.2)
[2017-10-16 07:40] LABS: INR 2.09 (0.85-1.17); PROTIME 22.9 SECONDS (11.6-15.0)
[2017-10-16 07:57] VITALS: BP 117/78
[2017-10-16 10:24] VITALS: Ht 157.5 cm; Wt 78.6 kg
[2017-10-16 11:28] VITALS: BP 139/73
[2017-10-16 15:17] VITALS: BP 138/74
[2017-10-16 20:00] VITALS: BP 128/66
[2017-10-17] VITALS: BP 139/78
[2017-10-17 04:00] VITALS: BP 118/69
[2017-10-17 05:05] LABS: BASOPHILS 0 % (0-2); EOSINOPHILS 0.2 % (0-7); HEMATOCRIT 30.3 % (36.0-48.0); IMMATURE GRANULOCYTES 0.4 % (0-5); LYMPHOCYTES 27.5 % (15-50); MCH 28.4 pg (26.0-34.0); MCHC 31.4 g/dL (31.0-37.0); MEAN PLATELET VOLUME 11.9 fL (7.4-10.4); MONOCYTES 10.8 % (2-11); NEUTROPHILS 61.1 % (40-80); PLATELET COUNT 144 10x3/uL (130-400); RBC 3.34 10x6/uL (4.00-5.40); RDW 21.2 % (11.5-14.5); WBC 5.2 10x3/uL (4.8-10.8)
[2017-10-17 05:27] LABS: ANION GAP 17.3 mmol/L (8-16); CARBON DIOXIDE 20.3 mmol/L (21.0-32.0); CREATININE - SERUM 2.1 mg/dL (0.6-1.3); POTASSIUM - SERUM 3.6 mmol/L (3.5-5.1)
[2017-10-17 05:36] LABS: HEMOGLOBIN 9.5 g/dL (12-16); MCV 90.7 fL (80.0-100.0)
[2017-10-17 05:40] LABS: INR 1.77 (0.85-1.17)
[2017-10-17 08:09] VITALS: BP 171/86
[2017-10-17 11:41] VITALS: BP 137/91
[2017-10-17 15:32] VITALS: BP 109/83
[2017-10-17 20:00] VITALS: BP 137/75
[2017-10-18] VITALS (7 sets, daily range): BP systolic 122–151; BP diastolic 76–84
[2017-10-18 08:44] LABS: INR 1.72 (0.85-1.17); PROTIME 19.6 SECONDS (11.6-15.0)
[2017-10-18 08:59] LABS: BASOPHILS 0.2 % (0-2); EOSINOPHILS 0.6 % (0-7); HEMATOCRIT 31.4 % (36.0-48.0); HEMOGLOBIN 9.5 g/dL (12-16); IMMATURE GRANULOCYTES 0.4 % (0-5); LYMPHOCYTES 31.7 % (15-50); MCHC 30.3 g/dL (31.0-37.0); MCV 92.6 fL (80.0-100.0); MEAN PLATELET VOLUME 11.6 fL (7.4-10.4); MONOCYTES 9.5 % (2-11); NEUTROPHILS 57.6 % (40-80); PLATELET COUNT 124 10x3/uL (130-400); RBC 3.39 10x6/uL (4.00-5.40); RDW 21.3 % (11.5-14.5); WBC 5.2 10x3/uL (4.8-10.8)
[2017-10-18 11:19] LABS: APPEARANCE HAZY (CLEAR); BILIRUBIN NEGATIVE (NEGATIVE); COLOR YELLOW (YELLOW); GLUCOSE NEGATIVE (NEGATIVE); KETONE SMALL mg/dL (NEGATIVE); NITRITE NEGATIVE (NEGATIVE); PROTEIN 3+ mg/dL (NEGATIVE); SPECIFIC GRAVITY 1.015 (1.005-1.020); UROBILINOGEN NORMAL (NORMAL)
[2017-10-18 11:20] LABS: BACTERIA FEW /hpf (NONE SEEN); MUCUS <1+ /lpf (NONE SEEN); WHITE CELLS - URINE 0-5 /hpf (0-5)
[2017-10-18 11:21] LABS: HYALINE CAST RARE /lpf (NONE SEEN); TALC POWDER CRYSTALS OCC /hpf (NONE SEEN); YEAST <1+ /hpf (NONE SEEN)
[2017-10-19 04:05] VITALS: BP 153/75
[2017-10-19 08:05] VITALS: BP 129/85
[2017-10-19 11:49] VITALS: BP 128/87
[2017-10-19 16:05] VITALS: BP 130/84
[2017-10-19 19:54] VITALS: BP 131/65
[2017-10-20 01:30] VITALS: BP 109/74
[2017-10-20 04:40] VITALS: BP 127/80
[2017-10-20 05:54] LABS: BASOPHILS 0 % (0-2); EOSINOPHILS 1.6 % (0-7); HEMATOCRIT 33.7 % (36.0-48.0); HEMOGLOBIN 9.9 g/dL (12-16); IMMATURE GRANULOCYTES 0.1 % (0-5); LYMPHOCYTES 24.9 % (15-50); MCH 27.8 pg (26.0-34.0); MCHC 29.4 g/dL (31.0-37.0); MEAN PLATELET VOLUME 12.2 fL (7.4-10.4); MONOCYTES 8.2 % (2-11); NEUTROPHILS 65.2 % (40-80); PLATELET COUNT 142 10x3/uL (130-400); RBC 3.56 10x6/uL (4.00-5.40); RDW 21.4 % (11.5-14.5)
[2017-10-20 06:03] LABS: MCV 94.7 fL (80.0-100.0); WBC 6.7 10x3/uL (4.8-10.8)
[2017-10-20 06:05] LABS: ANION GAP 16.1 mmol/L (8-16); CALCIUM 7.9 mg/dL (8.5-10.1); CARBON DIOXIDE 19.4 mmol/L (21.0-32.0); CREATININE - SERUM 2.1 mg/dL (0.6-1.3); POTASSIUM - SERUM 4.5 mmol/L (3.5-5.1)
[2017-10-20 07:54] VITALS: BP 145/88
[2017-10-20 11:53] VITALS: BP 106/65
[2017-10-20 16:35] VITALS: BP 114/81
[2017-10-20 20:20] VITALS: BP 136/75
[2017-10-21 00:41] VITALS: BP 119/72; BP 120/74
[2017-10-21 05:57] VITALS: BP 111/67
[2017-10-21 08:11] VITALS: BP 141/87
[2017-10-21 11:22] VITALS: BP 132/72
[2017-10-21 15:29] VITALS: BP 138/78
[2017-10-21 21:35] VITALS: BP 123/80
[2017-10-22 00:46] VITALS: BP 109/77
[2017-10-22 05:39] VITALS: BP 118/80
[2017-10-22 08:51] VITALS: BP 122/77
[2017-10-22 12:13] VITALS: BP 129/86
[2017-10-22 16:32] VITALS: BP 115/84
[2017-10-22 20:00] VITALS: BP 138/92
[2017-10-23] VITALS: BP 160/82
[2017-10-23 04:00] VITALS: BP 132/85
[2017-10-23 04:33] LABS: AMYLASE - SERUM 15 U/L (25-115); LIPASE 100 U/L (73-393)
[2017-10-23] MEDS ORDERED: CARAFATE1 G/10 ML PO (07:52)
[2017-10-23 07:57] VITALS: BP 158/103
[2017-10-23 11:16] VITALS: BP 132/85
[2017-10-23 15:16] VITALS: BP 121/79
[2017-10-23 20:18] VITALS: BP 135/87
[2017-10-24 00:39] VITALS: BP 121/78
[2017-10-24 06:11] VITALS: BP 119/77
[2017-10-24 08:17] VITALS: BP 120/85
[2017-10-24 11:43] VITALS: BP 128/89
[2017-10-24 15:36] VITALS: BP 127/86
== END 2017-10-24 18:37 | DRG 377 ==
LOC: D.ER 18:23 → D.M2 21:44
PROVIDERS: Family Medicine; Internal Medicine Gastroenterology
PROC: 0DJ08ZZ Inspection of Upper Intestinal Tract, Via Natural or Artificial Opening Endoscopic (ICD-10-PCS; principal; 2017-10-16 16:30)
DX: K29.01 Acute gastritis with bleeding (principal); I50.23 Acute on chronic systolic (congestive) heart failure; E43 Unspecified severe protein-calorie malnutrition; D62 Acute posthemorrhagic anemia; K22.10 Ulcer of esophagus without bleeding; K76.6 Portal hypertension; I27.82 Chronic pulmonary embolism; Z68.44 Body mass index [BMI] 60.0-69.9, adult; K29.80 Duodenitis without bleeding; K44.9 Diaphragmatic hernia without obstruction or gangrene; Z79.01 Long term (current) use of anticoagulants; E11.40 Type 2 diabetes mellitus with diabetic neuropathy, unspecified; I11.0 Hypertensive heart disease with heart failure; I25.5 Ischemic cardiomyopathy; I25.10 Atherosclerotic heart disease of native coronary artery without angina pectoris; J44.9 Chronic obstructive pulmonary disease, unspecified; E03.9 Hypothyroidism, unspecified; Z89.612 Acquired absence of left leg above knee; Z89.611 Acquired absence of right leg above knee; Z95.0 Presence of cardiac pacemaker; Z95.5 Presence of coronary angioplasty implant and graft; Z86.711 Personal history of pulmonary embolism; Z87.891 Personal history of nicotine dependence; I34.0 Nonrheumatic mitral (valve) insufficiency; Z72.0 Tobacco use; Z86.73 Personal history of transient ischemic attack (TIA), and cerebral infarction without residual deficits

== ENCOUNTER 2017-10-27 09:06 | Inpatient (IN) | payer MEDICARE ==
[~2017-10-27] VITALS: Ht 157.5 cm; Wt 62.8 kg
--- NOTE | ~2017-10-27 | CN ---
PATIENT NAME:HARINDER AVENDANO MEDICAL RECORD: [id number] : 63 LOCATION:D. D.2125 ADMIT DATE: 10/27/17 ACCOUNT: [id number] CONSULTING PHYSICIAN: ALESSANDRO CRESPO MD REFERRING PHYSICIAN: PAL RAMIRES MD DATE OF CONSULTATION: 10/27/2017 CONSULT REQUESTING PHYSICIAN: Pal Ramires MD REASON FOR CONSULTATION: Jfouv-le-hvycqvv hypoxic respiratory failure, generalized lethargy. HISTORY OF PRESENT ILLNESS: Ms. Avendano is a 52-year-old female, very well known to us. The patient was just hospitalized and discharged home. The patient is a very poor historian. She was brought in by her to the ER with shortness of breath, generalized weakness, and lethargy. Workup showed she has a pulmonary edema and pneumonia. Also, she has vmuxs-mo-pynhcbz renal failure. REVIEW OF SYSTEMS: Detail not obtainable. PAST MEDICAL HISTORY: 1. COPD. 2. Chronic hypoxic respiratory failure. 3. History of transient ischemic attack. 4. Diabetic neuropathy. 5. Peripheral vascular disease. 6. Hypothyroidism. 7. Diabetes mellitus. 8. Hypertension. 9. Congestive heart failure with ischemic cardiomyopathy with EF of 20%. 10. Valvular heart disease. 11. History of anxiety and depression. PAST SURGICAL HISTORY: 1. She has bilateral above-knee amputation. 2. . 3. Cholecystectomy. 4. Status post pacemaker placement. 5. Appendectomy. ALLERGIES: There are no known drug allergies. MEDICATIONS: [employer] Defense Material[employer]ch is reviewed. PERSONAL AND SOCIAL HISTORY: The patient is an ex-smoker. She is a nondrinker. FAMILY HISTORY: Noncontributory. PHYSICAL EXAMINATION: GENERAL: Now, the patient is lying comfortably in bed. She is not in acute distress. VITAL SIGNS: The blood pressure is 128/72, pulse is 73, respirations 20, temperature 97.2, SpO2 of 96% on 2 liter nasal cannula. HEENT: Conjunctivae is pink. Sclerae are not icteric. CONSULT REPORT [id number] HARINDER AVENDANO NECK: Supple. No JVD. CHEST: The chest excursion is minimal on both sides. There are bilateral crackles, wheeze on forceful expiration. HEART: Rhythm regular, normal sound, no murmur. ABDOMEN: Soft, bowel sounds present. No hepatosplenomegaly. RECTAL: Deferred. EXTREMITIES: No cyanosis, no clubbing, no pedal edema. She has bilateral above-knee amputations. SKIN: Warm, normal turgor. CENTRAL NERVOUS SYSTEM: The patient is awake and alert. There is no obvious cranial nerve abnormality. LABORATORY DATA: CBC: WBC 7000, hemoglobin is 10.6, hematocrit 35.7, and the platelet count is 113. Chemistry: Sodium 138, potassium 5.6, BUN is 58, creatinine 2.2. The cardiac enzyme; the troponin is 0.53, CK-MB is 4.9, CK is 42. IMPRESSION: 1. Chronic hypoxic respiratory failure. 2. Bilateral lower lobe pneumonia, most likely hospital-acquired pneumonia with the patient's recent hospitalization. 3. Pulmonary edema. 4. Congestive heart failure with ischemic cardiomyopathy with ejection fraction of 20% to 25%. 5. Chronic kidney disease. 6. History of pulmonary embolism. 7. Cellulitis of the stomach. 8. Elevated cardiac enzymes. RECOMMENDATION: 1. Continue supplemental oxygen. 2. Albuterol and ipratropium nebulizer. 3. Start Brovana and budesonide nebulizer. 4. Continue vancomycin and Zosyn. I will add Levaquin for Gram-negative coverage. 5. Bumex 2 mg IV q.12 hourly. We will follow up labs and chest radiograph. Supplemental oxygen is required. Dr. Ramires, thank you for involving me in the care of Ms. Avendano. TRANSINT:[id number] Voice Confirmation ID: [id number] DOCUMENT ID: [id number] ALESSANDRO CRESPO MD at 1806 CC: [id number] DICTATION DATE: 10/27/17 164 BALANCE STAFF STAKER: 10/27/171942 DIS IN 11/07/17 [facility] [address] [place] [address]
[~2017-10-27 09:06] MED LIST changes: +CARAFATE1 G/10 ML PO
[2017-10-27 09:51] LABS: APPEARANCE CLEAR (CLEAR); BILIRUBIN NEGATIVE (NEGATIVE); COLOR YELLOW (YELLOW); GLUCOSE NEGATIVE (NEGATIVE); KETONE NEGATIVE (NEGATIVE); NITRITE NEGATIVE (NEGATIVE); PROTEIN NEGATIVE (NEGATIVE); UROBILINOGEN NORMAL (NORMAL)
[2017-10-27 09:57] LABS: BASOPHILS 0.3 % (0-2); EOSINOPHILS 2.9 % (0-7); HEMATOCRIT 35.7 % (36.0-48.0); HEMOGLOBIN 10.6 g/dL (12-16); IMMATURE GRANULOCYTES 0.3 % (0-5); LYMPHOCYTES 38.6 % (15-50); MCH 27.5 pg (26.0-34.0); MCHC 29.7 g/dL (31.0-37.0); MCV 92.5 fL (80.0-100.0); MEAN PLATELET VOLUME 11.4 fL (7.4-10.4); MONOCYTES 7.9 % (2-11); RBC 3.86 10x6/uL (4.00-5.40); RDW 20.7 % (11.5-14.5)
[2017-10-27 09:59] LABS: PLATELET COUNT 113 10x3/uL (130-400)
[2017-10-27 10:11] LABS: ALBUMIN 1.8 g/dL (3.4-5.0); ALKALINE PHOSPHATASE 70 U/L (46-116); ALT (SGPT) 19 U/L (10-68); CALC OSMOLALITY 291 mosm/kg (275-300); CALCIUM 8.2 mg/dL (8.5-10.1); CARBON DIOXIDE 19.9 mmol/L (21.0-32.0); CHLORIDE - SERUM 110 mmol/L (98-107); CREATININE - SERUM 2.2 mg/dL (0.6-1.3); POTASSIUM - SERUM 5.6 mmol/L (3.5-5.1); PROTEIN - SERUM 5.8 g/dL (6.4-8.2); SODIUM 138 mmol/L (136-145); UREA NITROGEN 58 mg/dL (7-18); eGFR NON AFRICAN AMERICAN 25 mL/min (90-120)
[2017-10-27 10:20] LABS: GLUCOSE 94 mg/dL (74-106)
[2017-10-27 10:30] LABS: CKMB 4.9 U/L (0.0-3.6); CREATINE KINASE 42 UL (21-215)
[2017-10-27 10:50] LABS: TROPONIN-I 0.535 ng/mL (0.000-0.060)
[2017-10-27 15:01] VITALS: BMI 208.9
[2017-10-27 16:03] VITALS: BP 128/72
[2017-10-27] MEDS ORDERED: ALDACTONE50 MG PO (16:29)
[2017-10-27 20:00] VITALS: BP 107/60
[2017-10-28] VITALS: BP 107/61
[2017-10-28 04:00] VITALS: BP 117/64
[2017-10-28 05:45] LABS: BASOPHILS 0.3 % (0-2); EOSINOPHILS 3.5 % (0-7); HEMATOCRIT 38.4 % (36.0-48.0); HEMOGLOBIN 11.6 g/dL (12-16); IMMATURE GRANULOCYTES 0.3 % (0-5); LYMPHOCYTES 24.3 % (15-50); MCH 27.6 pg (26.0-34.0); MCHC 30.2 g/dL (31.0-37.0); MCV 91.4 fL (80.0-100.0); MONOCYTES 9.3 % (2-11); NEUTROPHILS 62.3 % (40-80); RDW 20.5 % (11.5-14.5); WBC 6.9 10x3/uL (4.8-10.8)
[2017-10-28 05:54] LABS: PLATELET COUNT 89 10x3/uL (130-400)
[2017-10-28 07:40] LABS: ANION GAP 15.9 mmol/L (8-16); CALCIUM 7.9 mg/dL (8.5-10.1); CARBON DIOXIDE 18.7 mmol/L (21.0-32.0); POTASSIUM - SERUM 5.6 mmol/L (3.5-5.1)
[2017-10-28 08:35] VITALS: BP 100/62
[2017-10-28 12:00] VITALS: BP 124/75
[2017-10-28 17:02] VITALS: BP 124/65
[2017-10-28 19:40] VITALS: BP 95/57
[2017-10-29 09:09] VITALS: BP 112/57
[2017-10-29 12:00] VITALS: BP 105/60
[2017-10-29 17:23] VITALS: BP 139/64
[2017-10-29 20:00] VITALS: BP 133/73
[2017-10-30] VITALS: BP 129/73
[2017-10-30 04:00] VITALS: BP 119/65
[2017-10-30 07:21] LABS: BASOPHILS 0.2 % (0-2); EOSINOPHILS 0.2 % (0-7); HEMATOCRIT 32.1 % (36.0-48.0); HEMOGLOBIN 9.7 g/dL (12-16); IMMATURE GRANULOCYTES 0.2 % (0-5); LYMPHOCYTES 19.1 % (15-50); MCH 26.9 pg (26.0-34.0); MCHC 30.2 g/dL (31.0-37.0); MCV 89.2 fL (80.0-100.0); MEAN PLATELET VOLUME 11.2 fL (7.4-10.4); MONOCYTES 8.2 % (2-11); NEUTROPHILS 72.1 % (40-80); PLATELET COUNT 78 10x3/uL (130-400); RDW 20.3 % (11.5-14.5)
[2017-10-30 07:46] LABS: ANION GAP 19.7 mmol/L (8-16); CALCIUM 7.9 mg/dL (8.5-10.1); CARBON DIOXIDE 19.8 mmol/L (21.0-32.0); CREATININE - SERUM 2.3 mg/dL (0.6-1.3); POTASSIUM - SERUM 4.5 mmol/L (3.5-5.1)
[2017-10-30 08:00] VITALS: BP 132/66
[2017-10-30 11:02] VITALS: BP 126/71
[2017-10-30 15:31] VITALS: BP 124/61
[2017-10-30 20:24] VITALS: BP 113/54
[2017-10-31 07:51] VITALS: BP 126/75
[2017-10-31 10:25] VITALS: BP 131/72
[2017-10-31 11:01] LABS: ANION GAP 17.8 mmol/L (8-16); CALCIUM 7.8 mg/dL (8.5-10.1); CARBON DIOXIDE 22.4 mmol/L (21.0-32.0); CREATININE - SERUM 2.3 mg/dL (0.6-1.3); POTASSIUM - SERUM 4.2 mmol/L (3.5-5.1)
[2017-10-31 11:09] LABS: BASOPHILS 0.2 % (0-2); EOSINOPHILS 2.5 % (0-7); HEMATOCRIT 30.6 % (36.0-48.0); HEMOGLOBIN 9.3 g/dL (12-16); IMMATURE GRANULOCYTES 0.2 % (0-5); LYMPHOCYTES 33.2 % (15-50); MCH 27.3 pg (26.0-34.0); MCHC 30.4 g/dL (31.0-37.0); MCV 89.7 fL (80.0-100.0); MEAN PLATELET VOLUME 11.4 fL (7.4-10.4); MONOCYTES 8.6 % (2-11); NEUTROPHILS 55.3 % (40-80); PLATELET COUNT 71 10x3/uL (130-400); RBC 3.41 10x6/uL (4.00-5.40); RDW 20.5 % (11.5-14.5); WBC 5.7 10x3/uL (4.8-10.8)
[2017-10-31 11:35] LABS: APTT 39.7 SECONDS (22.8-39.4); INR 1.16 (0.85-1.17); PROTIME 14.4 SECONDS (11.6-15.0)
[2017-10-31 11:44] LABS: PLATELET ESTIMATE DECREASED
[2017-10-31 15:31] VITALS: BP 127/68
[2017-10-31 20:31] VITALS: BP 116/64
[2017-11-01 04:00] VITALS: BP 101/51
[2017-11-01 07:44] VITALS: BP 132/71
[2017-11-01 11:23] VITALS: BP 129/77
[2017-11-01 15:46] VITALS: BP 130/79
[2017-11-01 19:43] VITALS: BP 121/71
[2017-11-02 00:51] VITALS: BP 127/72
[2017-11-02 04:53] VITALS: BP 84/63
[2017-11-02 07:38] LABS: BASOPHILS 0.4 % (0-2); EOSINOPHILS 3.8 % (0-7); HEMATOCRIT 33.3 % (36.0-48.0); HEMOGLOBIN 10.1 g/dL (12-16); IMMATURE GRANULOCYTES 0.2 % (0-5); LYMPHOCYTES 32.6 % (15-50); MCH 27.1 pg (26.0-34.0); MCHC 30.3 g/dL (31.0-37.0); MCV 89.3 fL (80.0-100.0); MONOCYTES 8.2 % (2-11); NEUTROPHILS 54.8 % (40-80); PLATELET COUNT 53 10x3/uL (130-400); RBC 3.73 10x6/uL (4.00-5.40); RDW 19.9 % (11.5-14.5); WBC 5.5 10x3/uL (4.8-10.8)
[2017-11-02 07:51] LABS: APTT 35.8 SECONDS (22.8-39.4); INR 1.28 (0.85-1.17); PROTIME 15.5 SECONDS (11.6-15.0)
[2017-11-02 08:01] LABS: ANION GAP 11.7 mmol/L (8-16); CALCIUM 7.6 mg/dL (8.5-10.1); CARBON DIOXIDE 27.2 mmol/L (21.0-32.0); CREATININE - SERUM 1.9 mg/dL (0.6-1.3); POTASSIUM - SERUM 3.9 mmol/L (3.5-5.1); VANCOMYCIN - RANDOM 16.8 ug/mL (10.0-20.0)
[2017-11-02 11:07] LABS: PROTEIN - BODY FLUID 1.7 G/DL
[2017-11-02 11:27] LABS: MACROPHAGES BF 43 %; MESOTHELIALS BF 16 %; NEUT - BF 10 %
[2017-11-02 13:03] VITALS: BP 97/45
[2017-11-02 14:28] VITALS: Ht 157.5 cm; Wt 62.8 kg
[2017-11-02 16:56] VITALS: BP 104/64
[2017-11-02 20:17] VITALS: BP 80/50
[2017-11-03] VITALS (13 sets, daily range): BP systolic 70–117; BP diastolic 43–65
[2017-11-03 07:02] LABS: BASOPHILS 0.1 % (0-2); EOSINOPHILS 2.1 % (0-7); HEMOGLOBIN 9.1 g/dL (12-16); IMMATURE GRANULOCYTES 0.1 % (0-5); LYMPHOCYTES 18.7 % (15-50); MCH 26.8 pg (26.0-34.0); MCHC 30.3 g/dL (31.0-37.0); MCV 88.2 fL (80.0-100.0); MONOCYTES 7.9 % (2-11); NEUTROPHILS 71.1 % (40-80); PLATELET COUNT 60 10x3/uL (130-400); RDW 19.7 % (11.5-14.5)
[2017-11-03 07:16] LABS: WBC 7.1 10x3/uL (4.8-10.8)
[2017-11-03 07:35] LABS: INR 1.36 (0.85-1.17); PROTIME 16.3 SECONDS (11.6-15.0)
[2017-11-03 07:36] LABS: APTT 36.8 SECONDS (22.8-39.4)
[2017-11-03 07:45] LABS: CALCIUM 7.1 mg/dL (8.5-10.1); CARBON DIOXIDE 25.4 mmol/L (21.0-32.0); CREATININE - SERUM 2.1 mg/dL (0.6-1.3)
[2017-11-03 07:50] LABS: ANION GAP 13.5 mmol/L (8-16); POTASSIUM - SERUM 3.9 mmol/L (3.5-5.1)
[2017-11-03 13:17] LABS: FUNGUS STAIN Final report (())
[2017-11-03 17:13] LABS: AFB SPECIMEN PROCESSING Not Indicated (())
[2017-11-04] VITALS: BP 66/41
[2017-11-04 04:00] VITALS: BP 68/38
[2017-11-04 08:38] VITALS: BP 76/48
[2017-11-04 11:21] VITALS: BP 90/50
[2017-11-04 16:34] VITALS: BP 95/43
[2017-11-04 20:02] VITALS: BP 85/55
[2017-11-05] VITALS: BP 72/44
[2017-11-05 04:00] VITALS: BP 107/66
[2017-11-05 06:17] LABS: ANION GAP 17.7 mmol/L (8-16); CALCIUM 7.1 mg/dL (8.5-10.1); CARBON DIOXIDE 22.2 mmol/L (21.0-32.0); CREATININE - SERUM 2.7 mg/dL (0.6-1.3); POTASSIUM - SERUM 3.9 mmol/L (3.5-5.1)
[2017-11-05 08:15] VITALS: BP 72/42
[2017-11-05 11:21] VITALS: BP 100/62
[2017-11-05 15:19] VITALS: BP 105/59
[2017-11-05 20:00] VITALS: BP 79/54
[2017-11-06] VITALS: BP 103/65
[2017-11-06 04:00] VITALS: BP 113/75
[2017-11-06 08:48] VITALS: BP 105/68
[2017-11-06 11:50] VITALS: BP 103/57
[2017-11-06 16:48] VITALS: BP 104/69
[2017-11-06 20:00] VITALS: BP 97/69
[2017-11-07] VITALS: BP 89/66
[2017-11-07 04:00] VITALS: BP 110/68
[2017-11-07 08:11] VITALS: BP 115/64
[2017-11-07 11:40] VITALS: BP 122/68
[2017-11-07 15:51] VITALS: BP 121/72
[2017-11-29 18:10] LABS: FUNGUS MYCOLOGY CULTURE Final report (())
[2017-12-29 12:19] LABS: ACID FAST CULTURE Negative (()); ACID FAST SMEAR Negative (())
== END 2017-11-07 18:31 | DRG 291 ==
LOC: D.ER 09:06 → D.M2 12:29
PROVIDERS: Family Medicine; General Practice; Internal Medicine Pulmonary Disease; Specialist
PROC: 0W993ZZ Drainage of Right Pleural Cavity, Percutaneous Approach (ICD-10-PCS; 2017-11-02)
PROC: 0W9B3ZZ Drainage of Left Pleural Cavity, Percutaneous Approach (ICD-10-PCS; principal; 2017-11-03 08:59)
DX: I11.0 Hypertensive heart disease with heart failure (principal); J18.9 Pneumonia, unspecified organism; J96.21 Acute and chronic respiratory failure with hypoxia; J44.0 Chronic obstructive pulmonary disease with (acute) lower respiratory infection; J44.1 Chronic obstructive pulmonary disease with (acute) exacerbation; L03.818 Cellulitis of other sites; I50.23 Acute on chronic systolic (congestive) heart failure; I42.9 Cardiomyopathy, unspecified; E11.40 Type 2 diabetes mellitus with diabetic neuropathy, unspecified; E11.51 Type 2 diabetes mellitus with diabetic peripheral angiopathy without gangrene; E03.9 Hypothyroidism, unspecified; Z66 Do not resuscitate; N32.81 Overactive bladder; I25.10 Atherosclerotic heart disease of native coronary artery without angina pectoris; Z95.0 Presence of cardiac pacemaker; Z86.711 Personal history of pulmonary embolism; Z86.73 Personal history of transient ischemic attack (TIA), and cerebral infarction without residual deficits

== ENCOUNTER 2017-11-17 22:03 | Emergency (ER) | payer MEDICARE ==
[~2017-11-17] VITALS: Ht 157.5 cm; Wt 70.8 kg
[~2017-11-17 22:03] MED LIST changes: +ALDACTONE50 MG PO
[2017-11-17 22:04] VITALS: Ht 157.5 cm; Wt 70.8 kg
== END 2017-11-18 02:07 | disposition other institution (70) ==
LOC: D.ER 22:03
DX: R09.2 Respiratory arrest (principal); I46.9 Cardiac arrest, cause unspecified; Z86.73 Personal history of transient ischemic attack (TIA), and cerebral infarction without residual deficits; E11.9 Type 2 diabetes mellitus without complications; I10 Essential (primary) hypertension; J44.9 Chronic obstructive pulmonary disease, unspecified; Z89.612 Acquired absence of left leg above knee; Z89.611 Acquired absence of right leg above knee